=== PATIENT | female | born 1950 | race Caucasian/White ===

== ENCOUNTER 2019-11-27 12:17 | Outpatient (CLI) | payer MEDICARE, MEDICAID, SELFPAY ==
--- NOTE | 2019-11-27 12:25 | XR_ITS ---
WS: [id number] SCREENING DEXA SCAN [employer] CLINICAL INFORMATION: POSTMENOPAUSAL COMPARISON: November 27, 2019 FINDINGS: The L1-L4 bone mineral density measures 1.111 g/cm2. This corresponds to a T score score of -0.6 and Z score of 0.3. Left femoral neck bone mineral density measures 0.944 g/cm2. This corresponds to a T score of -0.5 an d Z score of 0.3. Right femoral neck bone mineral density measures 1.001 g/cm2. This corresponds to a T score -0.1of an d Z score of 0.7. Mean femoral neck bone mineral density measures 0.972 g/cm2. This corresponds to a T score of -0.3 an d Z score of 0.5. XR/XR DEXA axial skeleton* [id number] IMPRESSION: Normal bone mineralization. Patient's FRAX calculated 10 year probability for major osteoporotic fracture i s 9.2 % and osteoporotic hip fracture is 1.1%.
== END 2019-11-27 12:18 | disposition home or self-care (01) ==
LOC: RADWPI 12:23
PROVIDERS: Family Provider Family Medicine; PCP Family Medicine; Visit Provider Family Medicine
DX: Z78.0 Asymptomatic menopausal state (principal)
CPT/HCPCS: 77080

== ENCOUNTER 2021-02-28 08:21 | Outpatient (CLI) | payer MEDICARE, MEDICAID, SELFPAY ==
[2021-02-28] MEDS: iohexol 300 mg/mL 50 mL Btl PO (08:57)
[2021-02-28 09:49] LABS: Blood Urea Nitrogen 15 mg/dL (8-23); Glomerular Filtration Rate 71.3 mL/min (90-130)
[2021-02-28] MEDS: iohexol 350 mg/mL 100 mL Btl IV (09:55)
--- NOTE | 2021-02-28 10:00 | CT_ITS ---
WS: [id number] CT ABDOMEN AND PELVIS WITH CONTRAST HISTORY: K43.2 - Incisional hernia without obstruction or gangrene TECHNIQUE: Imaging performed of the abdomen and pelvis with IV contrast. Single phase imaging of the abdomen. Coronal and sagittal reformats are submitted. All CT scans at [facility] use at least one of these dose optimization techniques: automated exposure control; mA and/or kV adjustment per patient size (includes targeted exams where dose is matched to clinical indication); or iterativ e reconstruction. IV CONTRAST: Omnipaque 350; 95 mL IV. Oral contrast: Yes. DLP: 818.01 mGycm COMPARISON: 05/26/2019 Lower thorax: Lung bases are clear. Normal size heart. Mild pericardial thickening and increased fat around the heart. Postsurgical sutures are noted at the GE junction. Consistent with a history of john or hernia repair. There is mild thickening of the distal esophagus. Liver/biliary system: Liver is top normal size to slightly enlarged measuring 18 cm in length. Stable 8mm hypodensity in the RIGHT lobe of the liver. Portal veins normal. Prior cholecystectomy. Gallbladder: Status post cholecystectomy. Pancreas: Normal size pancreas and pancreatic duct. No adjacent inflammation. Spleen: Normal size spleen. No mass or infarct. Adrenal glands: Normal. Right kidney: There are a few scattered hypodensities in the renal cortex which are too small to malini acterize. No hydronephrosis. Left kidney: A few scattered hypodensities in the cortex. No increase in size of the bulging cortex a long the inferior kidney since 2019. Aorta: Mild atherosclerosis with no aneurysm. Lymphadenopathy: None. Free fluid: None. GI tract: No GI tract obstruction. There is a dilated loop of colon in the RIGHT pelvis which isn't p resent on prior examinations. No significant dilatation of colon or small bowel. Numerous diverticula in the descending colon. Abdominal wall: Supraumbilical umbilical RIGHT abdominal wall hernia. Hernia orifice measures 5.7 cm. This hernia contains nondilated small bowel loops. This hernia has progressed in size since the prio r examination. Improvement in the postoperative changes over the pelvis from a prior abdominal wall s urgery. Pelvis: No free fluid or adenopathy. Prior hysterectomy. Bones: Sclerotic focus in the proximal RIGHT femur. CT/CT abdomen pelvis w con* [id number] IMPRESSION: 1. Large supra umbilical RIGHT lateral abdominal wall hernia contains nondilat ed small bowel loops. Hernia has increase in size since 2019. 2. Improving postoperative changes along the anterior pelvic wall. 3. No evidence for GI tract obstruction. The overall pattern is similar to john or studies. 4. Mild hepatomegaly. 5. Prior cholecystectomy. 6. Prior hiatal hernia repair with mild esophageal wall thickening distally.
== END 2021-02-28 08:22 | disposition home or self-care (01) ==
PROVIDERS: PCP Family Medicine; Visit Provider Surgery
DX: K43.2 Incisional hernia without obstruction or gangrene (principal); K43.9 Ventral hernia without obstruction or gangrene; R16.0 Hepatomegaly, not elsewhere classified; Z90.49 Acquired absence of other specified parts of digestive tract
CPT/HCPCS: 74177; 82565; 84520; Q9967

== ENCOUNTER 2021-06-16 22:35 | Emergency (ER) | payer MEDICARE, MEDICAID, SELFPAY ==
[2021-06-16 22:39] VITALS: BP 135/82; PULSE 61; RESP 18; TEMP 36.4; O2SAT 99; BMI 38.7
--- NOTE | 2021-06-16 23:46 | ED_ITS ---
Documented by User: CHANTEL Reich 06/17/21 00:33 HPI - Abdominal Pain General: Chief Complaint: Abdominal Pain Stated Complaint: abdomen pain Time Seen by Provider: 06/16/21 23:35 History of Present Illness: HPI narrative: This pleasant lady arrived via ambulance with a complaint of abdominal pain earlier. Patient said that she was doing better but the ambulance personnel talked her to come in anyway. Patient says she is pain-free that she has had this multiple times with her hernias and that she would like to go on home now presently patient states her pain earlier today last about 5 hours patient denies any fever chills nausea or vomiting. MD elicited complaint: abdominal pain Pertinent past history: other (Ventral hernias with incarcerated hernias that resolved in their own. She has had multiple abdominal surgeries) Onset (ago): hour(s) Pain Consistency: now resolved Location: Diffuse Severity: mild Quality: fullness Radiation: none Exacerbating factors: nothing Associated Symptoms: Reports no associated symptoms; Denies chills, fever(s), nausea and vomiting Review of Systems Const: Denies: fever(s), chills or body aches Eyes: Denies: change in vision or blurry vision ENMT: Denies: throat pain or nasal congestion Card: Denies: chest pain or dyspnea on exertion Resp: Denies: dyspnea, productive cough or non-productive cough GI: Reports: abdominal pain (Abdominal discomfort that is resolved couple hours ago); Denies: nausea or vomiting Musc: Denies: extremity pain Skin/Breast: Denies: rash Neuro: Denies: headache(s) Psych: Denies: anxiety or depression Maicol/Lymph: Denies: easy bruising PFSH ED PFSH: Medical History Atrial flutter HTN (hypertension) Hypercholesterolemia Family History Other Cancer Diabetes Heart disease Social History Smoking and tobacco status: never smoked Alcohol intake: never Physical Exam Const: COMMON NORMALS: no acute distress, average body habitus and patient oriented x3 HENMT: COMMON NORMALS: normocephalic HEAD & SCALP: normal to inspection and normocephalic FACE & SINUS: normal facial exam Eye: COMMON NORMALS: conjunctivae normal GENERAL EYE: appearance normal, both eyes and all related structures CONJUNCTIVA: Yes conjunctivae normal Neck/C-Spine: COMMON NORMALS: no JVD Chest: COMMONS NORMALS: normal inspection of the chest Resp: COMMON NORMALS: normal respiratory effort and clear to auscultation bilaterally AUSCULTATION: clear to auscultation bilaterally Cardio: COMMON NORMALS: no JVD, regular rate and regular rhythm RATE: regular rate RHYTHM: regular rhythm GI: COMMON NORMALS: Soft to palpation (No tenderness noted on palpation) INSPECTION: Yes other (Obvious large ventral hernia and abdominal scarring) AUSCULTATION: Yes normoactive bowel sounds PALPATION: Yes Soft to palpation (No tenderness noted on palpation) PERCUSSION: normal to percussion Extremity: COMMON NORMALS: normal to inspection and full ROM Neuro: COMMON NORMALS: patient oriented x3 Course Vital Signs: Vital signs: Vital Signs Temperature 97.5 F L 06/16/21 22:39 Pulse Rate 72 06/16/21 23:54 Respiratory Rate 17 06/16/21 23:54 Blood Pressure 137/85 06/16/21 23:54 Pulse Oximetry 96 06/16/21 23:54 MDM - Abdominal Pain MDM Narrative: Medical decision making narrative: Patient states that she had abdominal pain earlier today she thought maybe is one of her hernias causing problems. She called an ambulance but by time EMS got there she was no longer pain but she said they talked her to come in. Patient declines any testing lab tests or radiology studies. Patient says she is doing fine and would like to just go back home. Patient given strict instruction to return here if worsening symptoms or return of pain. Patient states that she will and she will follow up with primary care provider. Discharge Plan Discharge Patient Disposition: Home Clinical Impression: Abdominal pain Qualifiers: Abdominal location: generalized Qualified Code(s): R10.84 - Generalized abdominal pain Condition: Stable Prescriptions: No Action warfarin 5 mg tablet 5 mg PO DAILY RF: 0 ezetimibe [Zetia] 10 mg tablet 10 mg PO DAILY RF: 0 gabapentin 300 mg capsule 300 mg PO DAILY RF: 0 albuterol sulfate [ProAir HFA] 90 mcg/actuation HFA aerosol inhaler 2 puff INHALATION Q6H PRNRF: 0 lorazepam 1 mg tablet 1 mg PO DAILY PRNRF: 0 multivitamin Tablet 1 tab PO DAILY RF: 0 calcium carbonate-vitamin D3 200 mg (500 mg) -400 unit capsule 1 cap PO DAILY RF: 0 hydrocodone-acetaminophen [[place]] 10-325 mg tablet 1 tab PO Q6H PRNRF: 0 fluticasone propionate [Flonase Allergy Relief] 50 mcg/actuation spray,suspension 1 spray INTRANASAL DAILY RF: 0 pantoprazole 40 mg tablet,delayed release (DR/EC) 40 mg PO DAILY RF: 0 cyclobenzaprine 5 mg tablet 5 mg PO TID PRNRF: 0 montelukast 10 mg tablet 10 mg PO DAILY RF: 0 levothyroxine 125 mcg capsule 125 mcg PO DAILY RF: 0 cholecalciferol (vitamin D3) 1,250 mcg (50,000 unit) capsule 50,000 unit PO .weekly RF: 0 sertraline 100 mg tablet 100 mg PO DAILY RF: 0 venlafaxine 150 mg capsule,extended release 24hr 150 mg PO DAILY RF: 0 aripiprazole [Abilify] 2 mg tablet 4 mg PO DAILY RF: 0 celecoxib [Celebrex] 100 mg capsule 100 mg PO BID RF: 0 warfarin 4 mg tablet 4 mg PO DAILY Qty: 60 RF: 3 diltiazem HCl 120 mg capsule,extended release 24 hr 120 mg PO DAILY Qty: 90 RF: 3 nitroglycerin [Nitrostat] 0.4 mg tablet, sublingual 0.4 mg SUBLINGUAL Q5M PRN (Reason: chest pain) Qty: 25 RF: 3 Discharge Orders: Discharge ED (Routine); Ordered 06/16/21 Ordered By: Ramiro Cruz Referrals: Lorena Jackson MD [Primary Care Provider] - Discharge Diet: Usual diet Discharge Activity: Increase activity as tolerated Patient Instructions: Abdominal Pain (ED) Activity Restrictions/Additional Instructions: Follow-up your primary care provider as needed or return here for further evaluation if you have worsening pain. Coding Level of Care Code ED Wafer Batter Mixer for [place] Fwd Exam Comprehensive Documented by User: Hilton Calhoun DO Toby 06/17/21 01:02 HPI - Abdominal Pain General: Chief Complaint: Abdominal Pain Stated Complaint: abdomen pain Time Seen by Provider: 06/16/21 23:35 PFSH ED PFSH: Medical History Atrial flutter HTN (hypertension) Hypercholesterolemia Family History Other Cancer Diabetes Heart disease Social History Smoking and tobacco status: never smoked Alcohol intake: never Course Vital Signs: Vital signs: Vital Signs Temperature 97.5 F L 06/16/21 22:39 Pulse Rate 72 06/16/21 23:54 Respiratory Rate 17 06/16/21 23:54 Blood Pressure 137/85 06/16/21 23:54 Pulse Oximetry 96 06/16/21 23:54 MDM - Abdominal Pain MDM Narrative: Medical decision making narrative: This patient was originally seen by CHANTEL Mata. I agree with his history, evaluation, and treatment. Discharge Plan Discharge Patient Disposition: Home Clinical Impression: Abdominal pain Qualifiers: Abdominal location: generalized Qualified Code(s): R10.84 - Generalized abdominal pain Condition: Stable Prescriptions: No Action warfarin 5 mg tablet 5 mg PO DAILY RF: 0 ezetimibe [Zetia] 10 mg tablet 10 mg PO DAILY RF: 0 gabapentin 300 mg capsule 300 mg PO DAILY RF: 0 albuterol sulfate [ProAir HFA] 90 mcg/actuation HFA aerosol inhaler 2 puff INHALATION Q6H PRNRF: 0 lorazepam 1 mg tablet 1 mg PO DAILY PRNRF: 0 multivitamin Tablet 1 tab PO DAILY RF: 0 calcium carbonate-vitamin D3 200 mg (500 mg) -400 unit capsule 1 cap PO DAILY RF: 0 hydrocodone-acetaminophen [[place]] 10-325 mg tablet 1 tab PO Q6H PRNRF: 0 fluticasone propionate [Flonase Allergy Relief] 50 mcg/actuation spray,suspension 1 spray INTRANASAL DAILY RF: 0 pantoprazole 40 mg tablet,delayed release (DR/EC) 40 mg PO DAILY RF: 0 cyclobenzaprine 5 mg tablet 5 mg PO TID PRNRF: 0 montelukast 10 mg tablet 10 mg PO DAILY RF: 0 levothyroxine 125 mcg capsule 125 mcg PO DAILY RF: 0 cholecalciferol (vitamin D3) 1,250 mcg (50,000 unit) capsule 50,000 unit PO .weekly RF: 0 sertraline 100 mg tablet 100 mg PO DAILY RF: 0 venlafaxine 150 mg capsule,extended release 24hr 150 mg PO DAILY RF: 0 aripiprazole [Abilify] 2 mg tablet 4 mg PO DAILY RF: 0 celecoxib [Celebrex] 100 mg capsule 100 mg PO BID RF: 0 warfarin 4 mg tablet 4 mg PO DAILY Qty: 60 RF: 3 diltiazem HCl 120 mg capsule,extended release 24 hr 120 mg PO DAILY Qty: 90 RF: 3 nitroglycerin [Nitrostat] 0.4 mg tablet, sublingual 0.4 mg SUBLINGUAL Q5M PRN (Reason: chest pain) Qty: 25 RF: 3 Discharge Orders: Discharge ED (Routine); Ordered 06/16/21 Ordered By: Ramiro Cruz Referrals: Lorena Jackson MD [Primary Care Provider] - Discharge Diet: Usual diet Discharge Activity: Increase activity as tolerated Patient Instructions: Abdominal Pain (ED) Activity Restrictions/Additional Instructions: Follow-up your primary care provider as needed or return here for further evaluation if you have worsening pain. Coding Level of Care Code ED Wafer Batter Mixer for Mira Fwd Exam Comprehensive
[2021-06-16 23:54] VITALS: BP 137/85; PULSE 72; RESP 17; O2SAT 96
== END 2021-06-16 23:56 | disposition home or self-care (01) ==
PROVIDERS: Emergency Provider Nurse Practitioner Family; PCP Family Medicine
DX: R10.84 Generalized abdominal pain (principal); Z79.891 Long term (current) use of opiate analgesic; I10 Essential (primary) hypertension; I48.92 Unspecified atrial flutter; Z79.01 Long term (current) use of anticoagulants
CPT/HCPCS: 99282

== ENCOUNTER 2021-11-10 08:28 | Inpatient (IN) | payer MEDICARE, MEDICAID, SELFPAY ==
[2021-11-10] VITALS (9 sets, daily range): BP systolic 94–140; BP diastolic 63–97; PULSE 71–87; RESP 16–18; TEMP 36.5–36.8; O2SAT 94–97; BMI 39.2
--- NOTE | 2021-11-10 08:48 | ED_ITS ---
HPI - GI Bleed General: Chief complaint: GI Bleed Stated complaint: rectal bleeding/clots Time Seen by Provider: 11/10/21 08:31 Source: patient Mode of arrival: ambulatory Limitations: no limitations History of Present Illness: 71-year-old female presents emergency room complaining of bright red blood per rectum with clots. She is on warfarin for A. fib flutter earlier this week had an INR greater than 4. She been taking a lot of NSAIDs advised her to stop the NSAIDs been she continues her usual dose of Coumadin and has not been rechecked yet. She has some mild abdominal discomfort. She reports having multiple hernias with repairs on several. She denies any fever sweats or chills no dysuria urgency or frequency. She is in the process of getting set up for routine colonoscopy for screening she had not been having any problems prior to this her last one she thinks was somewhere around 5 years ago best of her recollection it showed some diverticuli but she has not had any episodes of diverticulitis. She states she has had about 5 or 6 bloody BMs this morning with clots passed a couple of times. She does have several hemorrhoids that are irritated. complaint: gross hematochezia Onset (ago): hour(s) Pain Consistency: intermittent Severity: moderate Relieving factors: none Exacerbating factors: none Context: anticoagulant use Associated symptoms: Denies abdominal pain, chills, easy bruising, epistaxis, fever(s), headache(s), malaise, nausea, other bleeding, poor appetite, rash, syncope, vomiting or weakness Treatments Prior to Arrival: none Review of Systems Const: Denies: fever(s), chills or malaise ENMT: Denies: epistaxis Card: Denies: syncope Resp: Denies: dyspnea, productive cough or non-productive cough GI: Denies: abdominal pain, nausea or vomiting : Denies: flank pain, difficulty voiding, dysuria, urinary frequency or urinary urgency Skin/Breast: Denies: rash Neuro: Denies: headache(s) Maicol/Lymph: Denies: easy bruising [facility] ED PFSH: Medical History Atrial flutter Chronic back pain COPD (chronic obstructive pulmonary disease) 2014 Depression with anxiety Diabetes mellitus Fibromyalgia GERD (gastroesophageal reflux disease) History of breast cancer History of TIA (transient ischemic attack) HTN (hypertension) Hypercholesterolemia Hypothyroidism IBS (irritable bowel syndrome) Surgical History History of bilateral mastectomy 1988 History of colonoscopy History of sleeve gastrectomy History of tonsillectomy S/P cataract extraction S/P cholecystectomy S/P hernia repair S/P hysterectomy S/P knee replacement Bilateral S/P mastectomy S/P tonsillectomy S/P TRAM (transverse rectus abdominis muscle) flap breast reconstruction 1989 S/P tubal ligation Family History Other Cancer Diabetes Heart disease Social History Smoking and tobacco status: never smoked Alcohol intake: never Physical Exam Const: GENERAL APPEARANCE: cooperative and comfortable ORIENTATION/CONSCIOUSNESS: Yes awake, Yes oriented to person, Yes oriented to place and Yes oriented to time HENMT: COMMON NORMALS: normocephalic, atraumatic and hearing grossly normal bilaterally HEAD & SCALP: normocephalic and atraumatic Neck/C-Spine: COMMON NORMALS: no JVD Resp: COMMON NORMALS: normal respiratory effort, No retractions, No use of accessory muscles and clear to auscultation bilaterally AUSCULTATION: clear to auscultation bilaterally Cardio: COMMON NORMALS: no JVD, regular rate, regular rhythm and No murmurs present (Cardio) RATE: regular rate RHYTHM: regular rhythm GI: COMMON NORMALS: Soft to palpation and No hepatosplenomegaly present AUSCULTATION: Yes normoactive bowel sounds PALPATION: Yes Soft to palpation, No Tenderness to palpation present (GI), No Guarding due to palpation present (GI) and Yes No hepatosplenomegaly present Extremity: COMMON NORMALS: normal to inspection, capillary refill normal, no clubbing, cyanosis or edema, no calf tenderness and no pedal edema Neuro: SENSORIUM/ORIENTATION: Yes oriented to person, Yes oriented to place and Yes oriented to time Skin: COMMON NORMALS: no rashes or lesions noted GENERAL SKIN EXAM: no rashes or lesions noted Course Vital Signs: Vital signs: Vital Signs Temperature 98.5 F 11/13/21 16:00 Pulse Rate 67 11/13/21 16:00 Respiratory Rate 12 11/13/21 16:00 Blood Pressure 117/69 11/13/21 16:00 Pulse Oximetry 94 11/13/21 16:00 MDM - GI Bleed Medical Decision Making Early and recurrent hours elevated has decreased some CT shows what looks like active bleeding from the diverticuli. We will continue her antibiotics. Continue to monitor hemoglobin and PT/INR. Discussed with hospitalist orders written Medical Records I reviewed the patient's medical records. Lab Data I reviewed the patient's lab results. : 11/13/21 16:26 11/13/21 02:25 Radiology Impressions Abdomen/Pelvis CT 11/10/21 08:57 IMPRESSION: 1. Acute diverticulitis involving the descending colon. Some contrast material layering within the lumen suggests active bleeding. Unable to further discriminate between arterial and venous bleeding on this single phase exam. 2. Moderate-sized ventral abdominal hernia to the right of midline containing nonobstructed transverse colon. COMMENTS: Consistent with the [place]'s Incidental Findings Committee white paper (J Am Mathew Radiol 2018): Any incidental renal lesion less than 1 cm or classified as too small to characterize, or any incidental cystic renal lesion characterized as simple-appearing, is likely benign. No follow-up imaging is recommended for these lesions per consensus recommendations based on imaging criteria. ADDENDUM: 11/10/21 1107 THIS REPORT CONTAINS FINDINGS THAT MAY BE CRITICAL TO PATIENT CARE. The findings were verbally communicated via telephone conference with CURLY CHUNG at 11:06 AM CDT on 11/10/2021. The findings were acknowledged and understood. Chest X-Ray 11/10/21 08:57 IMPRESSION: 1. No acute cardiopulmonary finding. No change. Laboratory Results WBC 4.6 10^3/uL (4.0-10.0) 11/10/21 09:20 RBC 4.48 10^6/uL (4.1-5.3) 11/10/21 09:20 Hgb 12.4 g/dL (11.5-15.3) 11/10/21 09:20 Hct 37.7 % (37.0-47.0) 11/10/21 09:20 MCV 84.2 fl (81-99) 11/10/21 09:20 MCH 27.7 pg (28.0-34.0) L 11/10/21 09:20 MCHC 32.9 g/dL (30.0-36.0) 11/10/21 09:20 RDW 13.6 % (12.1-15.1) 11/10/21 09:20 Plt Count 273 10^3/cmm (130-400) 11/10/21 09:20 MPV 10.5 fL (7.4-10.4) H 11/10/21 09:20 Neut % (Auto) 76.0 % 11/10/21 09:20 Lymph % (Auto) 14.6 % 11/10/21 09:20 [place] % (Auto) 6.5 % 11/10/21 09:20 Eos % (Auto) 2.0 % 11/10/21 09:20 Baso % (Auto) 0.7 % 11/10/21 09:20 Neut # (Auto) 3.49 10^3/uL (1.8-7.7) 11/10/21 09:20 Lymph # (Auto) 0.7 10^3/uL (0.8-4.8) L 11/10/21 09:20 [place] # (Auto) 0.3 10^3/uL (0.2-0.9) 11/10/21 09:20 Eos # (Auto) 0.1 10^3/uL (0.0-0.8) 11/10/21 09:20 Baso # (Auto) 0.0 10^3/uL (0.0-0.1) 11/10/21 09:20 Nucleated RBC % (auto) 0 % 11/10/21 09:20 Nucleated RBCs # 0.0 /100WBC 11/10/21 09:20 PT 30.70 SECONDS (12.1-14.9) H 11/10/21 09:20 INR 2.89 (0.8-1.2) H 11/10/21 09:20 Sodium 137 mmol/L (136-145) 11/10/21 09:20 Potassium 4.1 mmol/L (3.5-5.1) 11/10/21 09:20 Chloride 101 mmol/L (98-107) 11/10/21 09:20 Carbon Dioxide 25 mmol/L (22-29) 11/10/21 09:20 Anion Gap 15.1 (5-19) 11/10/21 09:20 BUN 15 mg/dL (8-23) 11/10/21 09:20 Creatinine 0.8 mg/dL (0.5-0.9) 11/10/21 09:20 GFR Calculation 71.1 mL/min (90-130) L 11/10/21 09:20 Glucose 133 mg/dL (65-115) H 11/10/21 09:20 Calculated Osmolality 287 mOsm/kg (285-295) 11/10/21 09:20 Calcium 8.1 mg/dL (8.5-10.5) L 11/10/21 09:20 Total Bilirubin 0.3 mg/dL (0.15-1.2) 11/10/21 09:20 AST 22 U/L (0-32) 11/10/21 09:20 ALT 16 U/L (0-33) 11/10/21 09:20 Alkaline Phosphatase 70 IU/L (35-105) 11/10/21 09:20 Total Protein 6.6 g/dL (6.6-8.7) 11/10/21 09:20 Albumin 3.7 g/dL (3.5-5.2) 11/10/21 09:20 Globulin 2.9 g/dL (1.3-4.6) 11/10/21 09:20 TSH 1.56 uIU/mL (0.27-4.20) 11/10/21 09:20 Discharge Plan Discharge Patient Disposition: Admitted As Inpatient Admit Provider: Talha Jackson Clinical Impression: Acute diverticulitis, Hematochezia, Diabetes mellitus, COPD (chronic obstructive pulmonary disease), HTN (hypertension) Condition: Stable Coding Level of Care Code ED Medical Office Technician for Chg Fwd Exam Comprehensive
--- NOTE | 2021-11-10 08:57 | XR_ITS ---
WS: [id number] Exam: XR chest 1V portable [id number] Date/Time of Exam: 11/10/2021 9:00 AM Reason For Exam: dyspnea/cough Comparison 11/28/2018. The lungs are clear and fully expanded. Normal cardiomediastinal silhouette. No pleural effusions. Wilson rgical clips along the right and left chest. XR/XR chest 1V portable [id number] IMPRESSION: 1. No acute cardiopulmonary finding. No change.
--- NOTE | 2021-11-10 08:57 | CTR_ITS ---
PROCEDURE INFORMATION: Exam: CT Abdomen And Pelvis With Contrast Exam date and time: 11/10/2021 10:13 AM Age: 71 years old Clinical indication: Abdominal pain; Prior surgery; Surgery type: Gb, appy hernia; Additional info: Abd pain rectal bleeding TECHNIQUE: Imaging protocol: Computed tomography of the abdomen and pelvis with contrast. Radiation optimization: All CT scans at this facility use at least one of these dose optimization techniques: automated exposure control; mA and/or kV adjustment per patient size (includes targeted exams where dose is matched to clinical indication); or iterative reconstruction. Contrast material: OMNI 300; Contrast volume: 95 ml; Contrast route: INTRAVENOUS (IV); COMPARISON: CT abdomen pelvis w con* [id number] 02/28/2021 9:53 AM RADIATION DOSE METRICS: Total DLP (mGy-cm): 1715.94 FINDINGS: Diaphragm: Small hiatal hernia. Liver: Subcentimeter low-density lesions in the liver are too small to characterize, though statistically benign. Gallbladder and bile ducts: Cholecystectomy. Pancreas: Normal. No ductal dilation. Spleen: Normal. No splenomegaly. Adrenal glands: Normal. No mass. Kidneys and ureters: Subcentimeter low-density lesions in the kidneys are too small to characterize, though statistically benign. No hydronephrosis. Stomach and bowel: Postsurgical changes of sleeve gastrectomy. No bowel obstruction. Colonic diverticulosis with inflammatory changes about a diverticulum in the descending colon. There is also some high-density contrast material layering within the lumen of the colon at this location, suggesting active bleeding. Unable to further discriminate whether this is arterial or venous. No evidence of perforation or abscess. Appendix: Appendectomy. Intraperitoneal space: Unremarkable. No free air. No significant fluid collection. Arteries: See Stomach and bowel finding. Lymph nodes: Unremarkable. No enlarged lymph nodes. Urinary bladder: Unremarkable as visualized. Reproductive: Hysterectomy. Bones/joints: Unremarkable. No acute fracture. Soft tissues: There is a moderate-sized ventral abdominal hernia in the mid abdomen just right of midline. The neck of the hernia sac measures up to 8.2 cm. The hernia sac contains nonobstructed colon. Surgical changes are seen in the ventral abdominal wall. CT/CT abdomen pelvis w con* [id number] IMPRESSION: 1. Acute diverticulitis involving the descending colon. Some contrast material layering within the lumen suggests active bleeding. Unable to further discriminate between arterial and venous bleeding on this single phase exam. 2. Moderate-sized ventral abdominal hernia to the right of midline containing nonobstructed transverse colon. COMMENTS: Consistent with the [employer]'s Incidental Findings Committee white paper (J Am Mathew Radiol 2018): Any incidental renal lesion less than 1 cm or classified as too small to characterize, or any incidental cystic renal lesion characterized as simple-appearing, is likely benign. No follow-up imaging is recommended for these lesions per consensus recommendations based on imaging criteria.
[2021-11-10 09:28] LABS: Basophils % 0.7 %; Eosinophils # 0.1 10^3/uL (0.0-0.8); Hematocrit 37.7 % (37.0-47.0); Hemoglobin 12.4 g/dL (11.5-15.3); Lymphocytes # 0.7 10^3/uL (0.8-4.8); Lymphocytes % 14.6 %; Mean Corpuscular HGB Conc 32.9 g/dL (30.0-36.0); Mean Corpuscular Hemoglobin 27.7 pg (28.0-34.0); Mean Corpuscular Volume 84.2 fl (81-99); Mean Platelet Volume 10.5 fL (7.4-10.4); Monocytes # 0.3 10^3/uL (0.2-0.9); Monocytes % 6.5 %; Neutrophils # 3.49 10^3/uL (1.8-7.7); Nucleated Red Blood Cells % 0 %; Platelet Count 273 10^3/cmm (130-400); Red Blood Count 4.48 10^6/uL (4.1-5.3); Red Cell Distribution Width 13.6 % (12.1-15.1); White Blood Count 4.6 10^3/uL (4.0-10.0)
[2021-11-10 09:51] LABS: Alanine Aminotransferase 16 U/L (0-33); Albumin Level 3.7 g/dL (3.5-5.2); Alkaline Phosphatase 70 IU/L (35-105); Anion Gap 15.1 (5-19); Aspartate Amino Transferase 22 U/L (0-32); Blood Urea Nitrogen 15 mg/dL (8-23); Calcium 8.1 mg/dL (8.5-10.5); Carbon Dioxide 25 mmol/L (22-29); Chloride 101 mmol/L (98-107); Globulin 2.9 g/dL (1.3-4.6); Glomerular Filtration Rate 71.1 mL/min (90-130); Glucose 133 mg/dL (65-115); Osmolality Calculated 287 mOsm/kg (285-295); Potassium 4.1 mmol/L (3.5-5.1); Sodium 137 mmol/L (136-145); Total Bilirubin 0.3 mg/dL (0.15-1.2); Total Protein 6.6 g/dL (6.6-8.7)
[2021-11-10 10:03] LABS: INR 2.89 (0.8-1.2)
[2021-11-10] MEDS: iohexol 300 mg/mL 100 mL Btl IV (10:13)
--- NOTE | 2021-11-10 12:10 | P.HP_ITS ---
Providers/Chief Complaint Admitting Physician: Talha Jackson MD Primary Care Provider: Lorena Jackson MD Chief Complaint: rectal bleeding/clots History of Present Illness Maida Shelton is a 71 year old female who presents to the emergency department with history of seen blood in her stool since last night. She has not had any specific abdominal pain, but now notes her abdomen is a little tender. She had a 6 bright red bloody stools with clots. She has only had 1 in the emergency department, which was less quantity. She denies any fever, chills, nausea, or vomiting. She denies any past history of bleeding. She reports she is due for screening colonoscopy. She was going to see Dr. Garcia for this in the near future. She is on Coumadin chronically for atrial flutter. In the emergency department she was diagnosed with diverticulitis, with bleeding. She was given a dose of Cipro and Flagyl. Review of Systems General: Reports: 10 or more systems reviewed and unremarkable except in HPI and below Const: Denies: fever(s) or chills Eyes: Denies: change in vision ENMT: Denies: throat pain Card: Denies: chest pain Resp: Reports: dyspnea GI: Reports: abdominal pain and hematochezia; Denies: nausea or vomiting : Denies: flank pain Musc: Reports: back pain Skin/Breast: Denies: rash Neuro: Denies: headache(s) Psych: Reports: anxiety and depression Endo: Denies: polyuria Maicol/Lymph: Denies: easy bruising All/Imm: Denies: urticaria Medications/Allergies Home Medications Medication Instructions Recorded Confirmed Last Taken Type albuterol sulfate 90 mcg/actuation 2 puff INHALATION Q6H PRN 11/16/19 12/16/20 Unknown History aerosol inhaler (ProAir HFA) cholecalciferol (vitamin D3) 1,250 50,000 unit PO .weekly cap 11/16/19 12/16/20 Unknown History mcg (50,000 unit) capsule cyclobenzaprine 5 mg tablet 5 mg PO TID PRN 11/16/19 12/16/20 Unknown History ezetimibe 10 mg tablet (Zetia) 10 mg PO DAILY 11/16/19 12/16/20 Unknown History fluticasone propionate 50 1 spray INTRANASAL DAILY 11/16/19 12/16/20 Unknown History mcg/actuation nasal spray,suspension (Flonase Allergy Relief) gabapentin 300 mg capsule 300 mg PO DAILY 11/16/19 12/16/20 Unknown History levothyroxine 125 mcg capsule 125 mcg PO DAILY 11/16/19 12/16/20 Unknown History lorazepam 1 mg tablet 1 mg PO DAILY PRN 11/16/19 12/16/20 Unknown History montelukast 10 mg tablet 10 mg PO DAILY 11/16/19 12/16/20 Unknown History multivitamin 1 tab PO DAILY 11/16/19 12/16/20 Unknown History sertraline 100 mg tablet 100 mg PO DAILY 11/16/19 12/16/20 Unknown History warfarin 5 mg tablet 5 mg PO DAILY 11/16/19 12/16/20 Unknown History aripiprazole 2 mg tablet (Abilify) 4 mg PO DAILY tab 11/11/20 12/16/20 Unknown History diltiazem HCl 120 mg capsule,24 120 mg PO DAILY #90 cap 12/08/20 12/16/20 Unknown Rx hr,extended release nitroglycerin 0.4 mg sublingual 0.4 mg SUBLINGUAL Q5M PRN #25 tab 03/28/21 Unknown Rx tablet (Nitrostat) calcium carb,cit 315 mg-vitamin D3 1 tab PO DAILY 11/10/21 11/10/21 11/09/21 History 250 unit-phytosterols 200 mg tablet duloxetine 30 mg capsule,delayed 30 mg PO DAILY 11/10/21 11/10/21 11/09/21 History release famotidine 20 mg tablet 20 mg PO DAILY 11/10/21 11/10/21 11/09/21 History hydrocodone 10 mg-acetaminophen 1 tab PO Q6H PRN 11/10/21 11/10/21 Unknown History 325 mg tablet omega-3 fatty acids-fish oil 684 1 cap PO DAILY 11/10/21 11/10/21 11/09/21 History mg-1,200 mg capsule,delayed release pseudoephedrine HCl 30 mg tablet 30 mg PO Q6H PRN 11/10/21 11/10/21 Unknown History (Sudafed) Allergies Allergy/AdvReac Type Severity Reaction Status Date / Time Sulfa (Sulfonamide Allergy Unknown Unknown Verified 11/10/21 11:55 Antibiotics) PFSH Acute PFSH: Medical History (Updated 11/10/21 @ 12:18 by Talha Jackson MD) Atrial flutter Chronic back pain COPD (chronic obstructive pulmonary disease) 2015 Depression with anxiety Diabetes mellitus Fibromyalgia GERD (gastroesophageal reflux disease) History of breast cancer History of TIA (transient ischemic attack) HTN (hypertension) Hypercholesterolemia Hypothyroidism IBS (irritable bowel syndrome) Surgical History (Updated 11/10/21 @ 12:13 by Talha Jackson MD) History of bilateral mastectomy 1988 History of colonoscopy History of sleeve gastrectomy History of tonsillectomy S/P cataract extraction S/P cholecystectomy S/P hernia repair S/P hysterectomy S/P knee replacement Bilateral S/P mastectomy S/P tonsillectomy S/P TRAM (transverse rectus abdominis muscle) flap breast reconstruction 1989 S/P tubal ligation Family History Other Cancer Diabetes Heart disease Social History Smoking and tobacco status: never smoked Alcohol intake: never Vitals/I&O/Wt Last Vital Signs Pulse 80 11/10/21 09:10 Resp 16 11/10/21 11:24 BP 126/97 11/10/21 11:24 Pulse Ox 97 11/10/21 11:24 Weight last 48 hrs Weight 110.223 kg Physical Exam Narrative: General exam is a white female, no apparent distress, conversant and pleasant HEENT: Pupils equally round. Oropharynx clear. Neck is supple no lymphadenopathy thyromegaly Cardiovascular regular rate and rhythm without murmur, no S3 or S4 Lungs clear no wheezing or crackles Abdomen is soft with positive bowel sounds. No obvious organomegaly. Ventral hernia noted, reducible. Generalized tenderness, slight, worse on the left exam is deferred Extremities no cyanosis clubbing or edema, cap refill brisk Skin no rash Neuro no obvious focal deficits Data : 11/10/21 09:20 11/10/21 09:20 Other Labs: CT demonstrates descending diverticulitis, with concern of active bleeding as well as a ventral abdominal hernia INR is 2.89 LFTs are normal Calcium 8.1 Albumin 3.7 Chest x-ray no infiltrate A&P Assessment and plan (1) Acute diverticulitis: Cipro Flagyl will be continued Blood cultures were not drawn prior to antibiotic administration. She does not appear septic, and at this point blood cultures are low yield. Consider getting this should she become febrile. This is associated with bleeding Discussed with her screening colonoscopy should be delayed until 6 weeks after episode of possible Hydration Repeat hemoglobin in 4 hours, sooner should she have recurrent bleeding. Status: Acute (2) Hematochezia: Secondary to diverticulitis, in this patient on Coumadin Status: Acute (3) Atrial flutter: Continue medications that are used for rate control Stop Coumadin secondary to bleeding Repeat INR tomorrow. As bleeding has slowed significantly and hemoglobin is acceptable will not reverse Status: Acute Qualifiers: Atrial flutter type: atypical Qualified Code(s): I48.4 - Atypical atrial flutter (4) Diabetes mellitus: When diet is initiated it will need to be consistent carb. Currently she is di et controlled, and no insulin is needed. No reason for Accu-Cheks currently. Status: Acute (5) COPD (chronic obstructive pulmonary disease): Albuterol as needed. No evidence of exacerbation. Status: Acute Plan Multiple other medical problems as outlined in past medical history Full code SCDs for DVT prophylaxis. Anticoagulation contraindicated secondary to bleeding Attestations Medical Necessity Statement*: Will need greater than 2 midnight stay for evaluation and treatment of diverticulitis with hemorrhage Coding Level of Care Code Acute [place] for Mira Dwyer Diagnoses Acute diverticulitis K57.92 Hematochezia K92.1 Atrial flutter I48.4 Atrial flutter type: atypical Diabetes mellitus E11.9 COPD (chronic obstructive pulmonary disease) J44.9
[2021-11-10] MEDS: ciprofloxacin 400 MG/200 ML PREMIX 200 MG IV ×2 (12:30→23:28)
[2021-11-10 12:42] LABS: Thyroid Stimulating Hormone 1.56 uIU/mL (0.27-4.20)
[2021-11-10] MEDS: metroNIDAZOLE IV 500 MG/100 ML PREMIX 100 MG IV ×2 (14:10→17:16)
[2021-11-10] MEDS: sodium chloride 0.9% 1,000 ML 100 ML IV (14:10)
[2021-11-10 14:53] LABS: Hematocrit 33.4 % (37.0-47.0); Hemoglobin 10.9 g/dL (11.5-15.3)
[2021-11-10] MEDS: HYDROcodone-acetaminophen 10-325 mg Tablet 1 TAB PO (18:38)
[2021-11-10 19:21] LABS: Hematocrit 29.7 % (37.0-47.0)
[2021-11-10] MEDS: duloxetine 30 mg Capsule PO (23:24)
[2021-11-10] MEDS: famotidine 20 mg Tablet PO (23:24)
[2021-11-10] MEDS: ezetimibe 10 mg Tablet PO (23:24)
[2021-11-10] MEDS: ARIPiprazole 2 mg Tablet 4 MG PO (23:24)
[2021-11-10] MEDS: dilTIAZem ER (24HR) 120 mg Capsule PO (23:25)
[2021-11-10] MEDS: gabapentin 300 mg Capsule PO (23:26)
[2021-11-10] MEDS: montelukast sodium 10 mg Tablet PO (23:26)
[2021-11-10] MEDS: sertraline 100 mg Tablet PO (23:26)
[2021-11-11] VITALS (9 sets, daily range): BP systolic 100–112; BP diastolic 58–70; PULSE 65–74; RESP 12–18; TEMP 36.6–36.7; O2SAT 92–96
[2021-11-11] MEDS: metroNIDAZOLE IV 500 MG/100 ML PREMIX 100 MG IV ×4 (00:13→22:12)
[2021-11-11] MEDS: sodium chloride 0.9% 1,000 ML 100 ML IV ×2 (02:54→17:00)
[2021-11-11 06:06] LABS: Basophils % 0.7 %; Eosinophils # 0.1 10^3/uL (0.0-0.8); Eosinophils % 1.9 %; Hematocrit 27.5 % (37.0-47.0); Hemoglobin 8.7 g/dL (11.5-15.3); Lymphocytes # 0.7 10^3/uL (0.8-4.8); Lymphocytes % 16.2 %; Mean Corpuscular HGB Conc 31.6 g/dL (30.0-36.0); Mean Corpuscular Hemoglobin 27.7 pg (28.0-34.0); Mean Corpuscular Volume 87.6 fl (81-99); Mean Platelet Volume 10.7 fL (7.4-10.4); Monocytes # 0.3 10^3/uL (0.2-0.9); Monocytes % 6.8 %; Neutrophils # 3.15 10^3/uL (1.8-7.7); Neutrophils % 73.7 %; Nucleated Red Blood Cells % 0 %; Platelet Count 213 10^3/cmm (130-400); Red Blood Count 3.14 10^6/uL (4.1-5.3); White Blood Count 4.3 10^3/uL (4.0-10.0)
[2021-11-11 06:25] LABS: Alanine Aminotransferase 12 U/L (0-33); Albumin Level 3.2 g/dL (3.5-5.2); Alkaline Phosphatase 50 IU/L (35-105); Anion Gap 10.9 (5-19); Aspartate Amino Transferase 15 U/L (0-32); Blood Urea Nitrogen 13 mg/dL (8-23); Calcium 7.3 mg/dL (8.5-10.5); Carbon Dioxide 26 mmol/L (22-29); Chloride 104 mmol/L (98-107); Globulin 1.6 g/dL (1.3-4.6); Glucose 109 mg/dL (65-115); Osmolality Calculated 285 mOsm/kg (285-295); Potassium 3.9 mmol/L (3.5-5.1); Sodium 137 mmol/L (136-145); Total Bilirubin 0.2 mg/dL (0.15-1.2); Total Protein 4.8 g/dL (6.6-8.7)
[2021-11-11 07:56] LABS: INR 2.48 (0.8-1.2)
[2021-11-11] MEDS: levothyroxine 125 mcg Tablet PO (08:33)
--- NOTE | 2021-11-11 11:22 | PM.PN ---
Subjective Subjective: The patient reports feeling better. No bowel movement since yesterday. No rectal blood so far. No dizziness or lightheadedness. Reports being hungry. No abdominal pain. No fever or chills. No chest pain, shortness of breath, cough, palpitations. Medications: Medication Review Details: Generic Name Dose Route Start Last Admin Trade Name Freq PRN Reason Stop Dose Admin Hydrocodone Bitart /Acetaminophen 1 tab 11/10/21 12:43 11/10/21 18:38 Hydrocodone-Acet aminophen 10-325 M g Tablet PO 1 tab Q6H PRN Administration MODERATE Pain Aripiprazole 4 mg 11/10/21 23:00 11/10/21 23:24 Aripiprazole 2 M g Tablet PO 4 mg BEDTIME GENESIS Administration Diltiazem HCl 120 mg 11/10/21 23:00 11/10/21 23:25 Diltiazem Er (24 hr) 120 Mg Capsule PO 120 mg BEDTIME GENESIS Administration Duloxetine HCl 30 mg 11/10/21 23:00 11/10/21 23:24 Duloxetine 30 Mg Capsule PO 30 mg BEDTIME GENESIS Administration Ezetimibe 10 mg 11/10/21 23:00 11/10/21 23:24 Ezetimibe 10 Mg Tablet PO 10 mg DAILY GENESIS Administration Famotidine 20 mg 11/10/21 23:00 11/10/21 23:24 Famotidine 20 Mg Tablet PO 20 mg BEDTIME GENESIS Administration Fluticasone Propio anuja 1 spray 11/11/21 09:00 11/11/21 08:33 Fluticasone Nasa l [place] 16gm Btl INTRANASAL Not Given DAILY GENESIS Gabapentin 300 mg 11/10/21 23:15 11/10/21 23:26 Gabapentin 300 M g Capsule PO 300 mg BEDTIME GENESIS Administration Sodium Chloride 1,000 mls @ 70 ml s/hr 11/10/21 12:43 11/11/21 02:54 Sodium Chloride 0.9% IV 100 mls/hr .[id number] GENESIS Administration Ciprofloxacin/Dext sabina 400 mg in 200 mls @ 200 mls/hr 11/10/21 23:55 11/11/21 00:28 Cipro IV Infused Q12H GENESIS Infusion Protocol Metronidazole 500 mg in 100 mls @ 100 mls/hr 11/10/21 18:00 04/23/22 06:25 Flagyl Iv IV Infused Q6H GENESIS Infusion Protocol Levothyroxine Sodi um 125 mcg 11/11/21 09:00 11/11/21 08:33 Levothyroxine 12 5 Mcg Tablet PO 125 mcg DAILY GENEISS Administration Montelukast Sodium 10 mg 11/10/21 23:15 11/10/21 23:26 Montelukast Sodi um 10 Mg Tablet PO 10 mg BEDTIME GENESIS Administration Sertraline HCl 100 mg 11/10/21 23:15 11/10/21 23:26 Sertraline 100 M g Tablet PO 100 mg BEDTIME GENESIS Administration Vitals/I&O/Wt Last Vital Signs Temp 97.9 F 11/11/21 04:00 Pulse 70 11/11/21 07:53 Resp 16 11/11/21 07:53 BP 100/58 11/11/21 07:45 Pulse Ox 94 11/11/21 07:53 11/10/21 11/11/21 11/11/21 22:59 06:59 14:59 Intake Total 200 / 400 1520 / 1920 Output Total 650 / 650 640 / 1290 Balance -450 / -250 880 / 630 Weight last 48 hrs Weight 110.223 kg Weight 110.223 kg Physical Exam Narrative: The patient is awake alert and oriented. No acute distress. Mood and affect are appropriate. Responses are adequate. Skin is warm and dry. Moist mucous membranes. Eyes PERRL, extraocular muscles intact. Neck supple. No JVD Lungs are clear bilaterally. Heart S1, S2, regular Abdomen is soft, nontender, bowel sounds are present Extremities no edema cyanosis or calf tenderness bilaterally Neuro examination is nonfocal Data : 11/11/21 05:00 11/11/21 05:00 A&P Assessment and plan (1) Acute diverticulitis: Gm Moore will be continued Blood cultures were not drawn prior to antibiotic administration. She does not appear septic, and at this point blood cultures are low yield. Consider getting this should she become febrile. This is associated with bleeding Discussed with her screening colonoscopy should be delayed until 6 weeks after episode of possible Hydration Repeat hemoglobin in 4 hours, sooner should she have recurrent bleeding. Status: Acute (2) Hematochezia: Secondary to diverticulitis, in this patient on Coumadin Status: Acute (3) Atrial flutter: Continue medications that are used for rate control Stop Coumadin secondary to bleeding Repeat INR tomorrow. As bleeding has slowed significantly and hemoglobin is acceptable will not reverse Status: Acute Qualifiers: Atrial flutter type: atypical Qualified Code(s): I48.4 - Atypical atrial flutter (4) Diabetes mellitus: When diet is initiated it will need to be consistent carb. Currently she is diet controlled, and no insulin is needed. No reason for Accu-Cheks currently. Status: Acute (5) COPD (chronic obstructive pulmonary disease): Albuterol as needed. No evidence of exacerbation. Status: Acute Plan [place] Rectal bleeding, probably diverticular. Continue monitoring H&H. We will transfuse if becomes clinically significant. Anemia. So far stable. Continue close monitoring. Acute diverticulitis. Continue current Cipro and metronidazole. Continue IV fluids. Advancing diet to clear liquid diet today. No pain. History of atrial flutter. Coumadin is on hold. Rate controlled. Continue monitoring INR. No reversal so far. COPD. Stable. No evidence of acute exacerbation. Full code SCDs for DVT prophylaxis. Anticoagulation contraindicated secondary to bleeding The plan of care was discussed with the patient. She verbalized understanding and agreement Attestations Medical Necessity Statement*: Requires close monitoring of the infection and anemia. Coding Level of Care Code Acute [employer] Operator for saúl Dwyer Diagnoses Acute diverticulitis K57.92 Hematochezia K92.1 Atrial flutter I48.4 Atrial flutter type: atypical Diabetes mellitus E11.9 COPD (chronic obstructive pulmonary disease) J44.9
[2021-11-11] MEDS: ciprofloxacin 400 MG/200 ML PREMIX 200 MG IV ×2 (13:22→23:04)
[2021-11-11 14:15] LABS: Hematocrit 26.4 % (37.0-47.0); Hemoglobin 8.8 g/dL (11.5-15.3)
[2021-11-11] MEDS: ARIPiprazole 2 mg Tablet 4 MG PO (22:10)
[2021-11-11] MEDS: dilTIAZem ER (24HR) 120 mg Capsule PO (22:11)
[2021-11-11] MEDS: duloxetine 30 mg Capsule PO (22:11)
[2021-11-11] MEDS: gabapentin 300 mg Capsule PO (22:11)
[2021-11-11] MEDS: ezetimibe 10 mg Tablet PO (22:11)
[2021-11-11] MEDS: sertraline 100 mg Tablet PO (22:11)
[2021-11-11] MEDS: famotidine 20 mg Tablet PO (22:12)
[2021-11-11] MEDS: montelukast sodium 10 mg Tablet PO (22:12)
[2021-11-11] MEDS: HYDROcodone-acetaminophen 10-325 mg Tablet 1 TAB PO (23:04)
[2021-11-12] MEDS: metroNIDAZOLE IV 500 MG/100 ML PREMIX 100 MG IV ×4 (03:33→20:53)
[2021-11-12 04:00] VITALS: BP 108/58; PULSE 67; RESP 17; TEMP 36.6; O2SAT 95
[2021-11-12 04:56] LABS: Basophils % 1.2 %; Eosinophils # 0.2 10^3/uL (0.0-0.8); Eosinophils % 5.3 %; Hemoglobin 8.1 g/dL (11.5-15.3); Lymphocytes # 0.7 10^3/uL (0.8-4.8); Lymphocytes % 21.1 %; Mean Corpuscular HGB Conc 32.4 g/dL (30.0-36.0); Mean Corpuscular Volume 86.5 fl (81-99); Mean Platelet Volume 10.3 fL (7.4-10.4); Monocytes # 0.3 10^3/uL (0.2-0.9); Monocytes % 9.7 %; Neutrophils % 61.5 %; Nucleated Red Blood Cells % 0 %; Platelet Count 189 10^3/cmm (130-400); Red Blood Count 2.89 10^6/uL (4.1-5.3); White Blood Count 3.4 10^3/uL (4.0-10.0)
[2021-11-12 05:21] LABS: Albumin Level 3.2 g/dL (3.5-5.2); Anion Gap 12.8 (5-19); Blood Urea Nitrogen 7 mg/dL (8-23); Calcium 7.3 mg/dL (8.5-10.5); Carbon Dioxide 23 mmol/L (22-29); Chloride 105 mmol/L (98-107); Glomerular Filtration Rate 99.1 mL/min (90-130); Glucose 100 mg/dL (65-115); Magnesium 1.6 mg/dL (1.7-2.3); Phosphorus 2.9 mg/dL (2.5-4.5); Potassium 3.8 mmol/L (3.5-5.1); Sodium 137 mmol/L (136-145)
[2021-11-12 07:15] VITALS: BP 117/66; PULSE 67; RESP 18; TEMP 36.4; O2SAT 97
[2021-11-12 07:41] VITALS: PULSE 67; RESP 16; O2SAT 94
[2021-11-12] MEDS: magnesium sulfate premix 2 GM/50 ML PIGGYBACK IV (09:47)
[2021-11-12] MEDS: levothyroxine 125 mcg Tablet PO (09:48)
--- NOTE | 2021-11-12 11:01 | P.PN_ITS ---
Subjective Subjective: The patient reports feeling better. Had a bowel movement. It was dark but no active bleeding. No nausea or vomiting. No abdominal pain. No fever or chills. No chest pain, shortness of breath, cough, palpitations. Medications: Reviewed: Yes Medication Review Details: Generic Name Dose Route Start Last Admin Trade Name Freq PRN Reason Stop Dose Admin Hydrocodone Bitart /Acetaminophen 1 tab 11/10/21 12:43 11/11/21 23:04 Hydrocodone-Acet aminophen 10-325 M g Tablet PO 1 tab Q6H PRN Administration MODERATE Pain Aripiprazole 4 mg 11/10/21 23:00 11/11/21 22:10 Aripiprazole 2 M g Tablet PO 4 mg BEDTIME GENESIS Administration Diltiazem HCl 120 mg 11/10/21 23:00 11/11/21 22:11 Diltiazem Er (24 hr) 120 Mg Capsule PO 120 mg BEDTIME GENESIS Administration Duloxetine HCl 30 mg 11/10/21 23:00 11/11/21 22:11 Duloxetine 30 Mg Capsule PO 30 mg BEDTIME GENESIS Administration Ezetimibe 10 mg 11/10/21 23:00 11/11/21 22:11 Ezetimibe 10 Mg Tablet PO 10 mg DAILY GENESIS Administration Famotidine 20 mg 11/10/21 23:00 11/11/21 22:12 Famotidine 20 Mg Tablet PO 20 mg BEDTIME GENESIS Administration Fluticasone Propio anuja 1 spray 11/11/21 09:00 11/12/21 09:48 Fluticasone Nasa l [place] 16gm Btl INTRANASAL Not Given DAILY GENESIS Gabapentin 300 mg 11/10/21 23:15 11/11/21 22:11 Gabapentin 300 M g Capsule PO 300 mg BEDTIME GENESIS Administration Ciprofloxacin/Dext sabina 400 mg in 200 mls @ 200 mls/hr 11/10/21 23:55 11/12/21 00:04 Cipro IV Infused Q12H GENESIS Infusion Protocol Metronidazole 500 mg in 100 mls @ 100 mls/hr 11/10/21 18:00 11/12/21 09:47 Flagyl Iv IV 100 mls/hr Q6H GENESIS Administration Protocol Levothyroxine Sodi um 125 mcg 11/11/21 09:00 11/12/21 09:48 Levothyroxine 12 5 Mcg Tablet PO 125 mcg DAILY GENESIS Administration Montelukast Sodium 10 mg 11/10/21 23:15 11/11/21 22:12 Montelukast Sodi um 10 Mg Tablet PO 10 mg BEDTIME GENESIS Administration Sertraline HCl 100 mg 11/10/21 23:15 11/11/21 22:11 Sertraline 100 M g Tablet PO 100 mg BEDTIME GENESIS Administration Vitals/I&O/Wt Last Vital Signs Temp 97.6 F 11/12/21 07:15 Pulse 67 11/12/21 07:41 Resp 16 11/12/21 07:41 BP 117/66 11/12/21 07:15 Pulse Ox 94 11/12/21 07:41 11/11/21 11/12/21 11/12/21 22:59 06:59 14:59 Intake Total 220 / 1420 400 / 1820 360 / 360 Balance 220 / 1020 400 / 1420 360 / 360 Weight last 48 hrs Weight 110.223 kg Physical Exam Narrative: The patient is awake alert and oriented. No acute distress. Mood and affect are appropriate. Responses are adequate. Skin is warm and dry. Moist mucous membranes. Eyes PERRL, extraocular muscles intact. Neck supple. No JVD Lungs are clear bilaterally. Heart S1, S2, regular Abdomen is soft, nontender, bowel sounds are present Extremities no edema cyanosis or calf tenderness bilaterally Neuro examination is nonfocal Data : 11/12/21 03:35 11/12/21 03:35 A&P Assessment and plan (1) Acute diverticulitis: Cipro, Flagyl will be continued Blood cultures were not drawn prior to antibiotic administration. She does not appear septic, and at this point blood cultures are low yield. Consider getting this should she become febrile. This is associated with bleeding Discussed with her screening colonoscopy should be delayed until 6 weeks after episode of possible Hydration Repeat hemoglobin in 4 hours, sooner should she have recurrent bleeding. Status: Acute (2) Hematochezia: Secondary to diverticulitis, in this patient on Coumadin Status: Acute (3) Atrial flutter: Continue medications that are used for rate control Stop Coumadin secondary to bleeding Repeat INR tomorrow. As bleeding has slowed significantly and hemoglobin is acceptable will not reverse Status: Acute Qualifiers: Atrial flutter type: atypical Qualified Code(s): I48.4 - Atypical atrial flutter (4) Diabetes mellitus: When diet is initiated it will need to be consistent carb. Currently she is diet controlled, and no insulin is needed. No reason for Accu-Cheks currently. Status: Acute (5) COPD (chronic obstructive pulmonary disease): Albuterol as needed. No evidence of exacerbation. Status: Acute Plan [place] Rectal bleeding, probably diverticular. Continue monitoring H&H. We will transfuse if becomes clinically significant. Consider surgical consult. The patient requests Dr. Garcia will be back tomorrow. Anemia. So far stable. Continue close monitoring. Acute diverticulitis. Continue current Cipro and metronidazole. We will stop IV fluid. We will continue advancing diet. History of atrial flutter. Coumadin is on hold. Rate controlled. Continue monitoring INR. No reversal so far. COPD. Stable. No evidence of acute exacerbation. Full code SCDs for DVT prophylaxis. Anticoagulation contraindicated secondary to bleeding The plan of care was discussed with the patient. She verbalized understanding and agreement Attestations Medical Necessity Statement*: Still requires close monitoring, and needs IV antibiotics, still high risk for bleeding. Coding Level of Care Code Acute Senior Sustainability Consultant for [facility] Diagnoses Acute diverticulitis K57.92 Hematochezia K92.1 Atrial flutter I48.4 Atrial flutter type: atypical Diabetes mellitus E11.9 COPD (chronic obstructive pulmonary disease) J44.9
[2021-11-12 11:04] VITALS: BP 114/68; PULSE 64; RESP 18; TEMP 36.6; O2SAT 95
[2021-11-12] MEDS: ciprofloxacin 400 MG/200 ML PREMIX 200 MG IV ×2 (12:35→23:46)
[2021-11-12 15:03] VITALS: BP 114/69; PULSE 83; RESP 18; TEMP 36.4; O2SAT 95
[2021-11-12] MEDS: HYDROcodone-acetaminophen 10-325 mg Tablet 1 TAB PO (15:58)
[2021-11-12 20:00] VITALS: BP 117/74; PULSE 71; PULSE 72; RESP 16; RESP 17; TEMP 36.8; O2SAT 94; O2SAT 97
[2021-11-12] MEDS: dilTIAZem ER (24HR) 120 mg Capsule PO (20:53)
[2021-11-12] MEDS: ARIPiprazole 2 mg Tablet 4 MG PO (20:53)
[2021-11-12] MEDS: sertraline 100 mg Tablet PO (20:54)
[2021-11-12] MEDS: gabapentin 300 mg Capsule PO (20:54)
[2021-11-12] MEDS: famotidine 20 mg Tablet PO (20:54)
[2021-11-12] MEDS: montelukast sodium 10 mg Tablet PO (20:54)
[2021-11-12] MEDS: duloxetine 30 mg Capsule PO (20:54)
[2021-11-12] MEDS: ezetimibe 10 mg Tablet PO (20:54)
[2021-11-13] VITALS: BP 109/64; PULSE 84; RESP 17; TEMP 36.2; O2SAT 92
[2021-11-13] MEDS: metroNIDAZOLE IV 500 MG/100 ML PREMIX 100 MG IV ×3 (02:45→14:32)
[2021-11-13 03:24] LABS: Basophils % 0.9 %; Eosinophils # 0.2 10^3/uL (0.0-0.8); Eosinophils % 4.3 %; Hematocrit 24.4 % (37.0-47.0); Lymphocytes # 0.7 10^3/uL (0.8-4.8); Lymphocytes % 19.4 %; Mean Corpuscular HGB Conc 32.8 g/dL (30.0-36.0); Mean Corpuscular Hemoglobin 28.1 pg (28.0-34.0); Mean Corpuscular Volume 85.6 fl (81-99); Mean Platelet Volume 10.5 fL (7.4-10.4); Monocytes # 0.4 10^3/uL (0.2-0.9); Monocytes % 10.5 %; Neutrophils # 2.24 10^3/uL (1.8-7.7); Neutrophils % 63.8 %; Nucleated Red Blood Cells % 0 %; Platelet Count 195 10^3/cmm (130-400); Red Blood Count 2.85 10^6/uL (4.1-5.3); Red Cell Distribution Width 13.9 % (12.1-15.1); White Blood Count 3.5 10^3/uL (4.0-10.0)
[2021-11-13 03:37] LABS: INR 2.06 (0.8-1.2)
[2021-11-13 03:52] LABS: Albumin Level 2.9 g/dL (3.5-5.2); Blood Urea Nitrogen 5 mg/dL (8-23); Calcium 7.6 mg/dL (8.5-10.5); Carbon Dioxide 19 mmol/L (22-29); Chloride 105 mmol/L (98-107); Glomerular Filtration Rate 122.3 mL/min (90-130); Glucose 93 mg/dL (65-115); Magnesium 1.9 mg/dL (1.7-2.3); Phosphorus 2.9 mg/dL (2.5-4.5); Sodium 136 mmol/L (136-145)
[2021-11-13 04:00] VITALS: BP 113/68; PULSE 70; RESP 16; TEMP 36.6; O2SAT 96
[2021-11-13] MEDS: HYDROcodone-acetaminophen 10-325 mg Tablet 1 TAB PO (04:28)
[2021-11-13 07:10] VITALS: BP 115/65; PULSE 63; RESP 18; TEMP 36.4; O2SAT 97
[2021-11-13] MEDS: levothyroxine 125 mcg Tablet PO (08:04)
--- NOTE | 2021-11-13 09:21 | PC.SOCIAL ---
IMM Update Pg. 2 of IMM updated and reviewed with patient, who verbalized understanding. Copy provided.
[2021-11-13 10:05] VITALS: PULSE 65; RESP 17; O2SAT 98
[2021-11-13 11:52] VITALS: BP 113/63; PULSE 65; RESP 18; TEMP 36.6; O2SAT 96
[2021-11-13] MEDS: ciprofloxacin 400 MG/200 ML PREMIX 200 MG IV (12:21)
--- NOTE | 2021-11-13 15:16 | P.TS_ITS ---
Transfer Summary Providers Date of Admission: 11/10/21 12:43 Date of Discharge/Transfer: 11/13/21 Attending Provider at Admission: Talha Jackson MD Attending Provider at Transfer: Ani Sampson MD Primary Care Provider: Lorena Jackson MD Transfer Plans: Anticipated date of transfer: 11/13/21 . Diagnoses at Discharge Discharge Diagnosis (1) Acute diverticulitis: Status: Acute (2) Hematochezia: Status: Acute (3) Atrial flutter: Status: Acute Qualifiers: Atrial flutter type: atypical Qualified Code(s): I48.4 - Atypical atrial flutter (4) Diabetes mellitus: Status: Acute (5) COPD (chronic obstructive pulmonary disease): Status: Acute Permanent problem details: 2014 Reason for Visit Reason for Visit rectal bleeding/clots Hospital Course Hospital Course Patient is a 71-year-old female with history of COPD, atrial fibrillation on anticoagulation, hypothyroidism who presented to the hospital for bright red blood in stool. She also complained of abdominal pain. She had 6 bright red bloody bowel movements with clots. She also had 1 in the emergency department on admission. She said that she is due for her routine colonoscopy which is usually every 5 years and she was supposed to see her doctor this upcoming Saturday but she ended up in the hospital prior to that. CT abdomen pelvis was done which showed diverticulitis and she was started on Cipro and Flagyl. Patient is on Coumadin for A. fib which was stopped. She has not received any doses since being in the hospital. Patient's hemoglobin on admission was 12 and it has trended down to 8 over last 2 days. She is continuing to have blood in stool. Now she is reporting more of a black tarry melanotic stool along with red blood mixed in there. Hemoglobin is continuing to trend down. So far she has not required a blood transfusion since it has not dropped down to 7. Patient is on a calcium channel lauri diltiazem 180 daily. Heart rate is 60- [address] abdomen pelvis on admission did show acute diverticulitis involving the descending colon and some contrast material layering within the lumen suggesting active bleeding. Unable to further discriminate between arterial and venous bleeding on the single phase exam. We do not have general surgery or GI available at our hospital at this point and therefore patient will require higher level of care in case she needs colonic angiogram with interventional radiology versus EGD. Patient will be transferred to [facility] in [place]. This was discussed with the patient as well and she is agreeable at this time. Patient is hemodynamically stable. dicussed with GI in [place] and hospitalist. Will transfer patient. Physical Exam Narrative: General: Alert oriented x3, patient seen sitting up in bed appearing comfortable. HEENT: Normocephalic, atraumatic, EOMI, breathing normally. Cardio: Regular rate rhythm, normal S1-S2, no murmurs Respiratory: Good bilateral air entry, very mild coarse sounds at bases,no wheezes no rhonchi appreciated GI: Abdomen soft, nontender, nondistended, bowel sounds +, large ventral abdominal hernia noted. Behavior: Appropriate and cooperative Extremities: no edema, no cyanosis TS Data Studies Completed and Pending Labs from last 24 hours 11/13/21 11/13/21 11/13/21 02:25 02:25 02:25 WBC 3.5 L RBC 2.85 L Hgb 8.0 L Hct 24.4 L MCV 85.6 MCH 28.1 MCHC 32.8 RDW 13.9 Plt Count 195 MPV 10.5 H Neut % (Auto) 63.8 Lymph % (Auto) 19.4 Nye % (Auto) 10.5 Eos % (Auto) 4.3 Baso % (Auto) 0.9 Neut # (Auto) 2.24 Lymph # (Auto) 0.7 L Nye # (Auto) 0.4 Eos # (Auto) 0.2 Baso # (Auto) 0.0 Nucleated RBC % (auto) 0 Nucleated RBCs # 0.0 PT 23.70 H INR 2.06 H Sodium 136 Potassium 4.0 Chloride 105 Carbon Dioxide 19 L Anion Gap 16.0 BUN 5 L Creatinine 0.5 GFR Calculation 122.3 Glucose 93 Calcium 7.6 L Phosphorus 2.9 Magnesium 1.9 Albumin 2.9 L Completed Studies During Hospitalization Category Date Time Status CT abdomen pelvis w con* [id number] Stat Cat Scan 11/10/21 08:57 Completed XR chest 1V portable [id number] Stat Exams 11/10/21 08:57 Completed Laboratory Last Values WBC 3.5 10^3/uL (4.0-10.0) L 11/13/21 02:25 RBC 2.85 10^6/uL (4.1-5.3) L 11/13/21 02:25 Hgb 8.0 g/dL (11.5-15.3) L 11/13/21 02:25 Hct 24.4 % (37.0-47.0) L 11/13/21 02:25 MCV 85.6 fl (81-99) 11/13/21 02:25 MCH 28.1 pg (28.0-34.0) 11/13/21 02:25 MCHC 32.8 g/dL (30.0-36.0) 11/13/21 02:25 RDW 13.9 % (12.1-15.1) 11/13/21 02:25 Plt Count 195 10^3/cmm (130-400) 11/13/21 02:25 MPV 10.5 fL (7.4-10.4) H 11/13/21 02:25 Neut % (Auto) 63.8 % 11/13/21 02:25 Lymph % (Auto) 19.4 % 11/13/21 02:25 Nye % (Auto) 10.5 % 11/13/21 02:25 Eos % (Auto) 4.3 % 11/13/21 02:25 Baso % (Auto) 0.9 % 11/13/21 02:25 Neut # (Auto) 2.24 10^3/uL (1.8-7.7) 11/13/21 02:25 Lymph # (Auto) 0.7 10^3/uL (0.8-4.8) L 11/13/21 02:25 Nye # (Auto) 0.4 10^3/uL (0.2-0.9) 11/13/21 02:25 Eos # (Auto) 0.2 10^3/uL (0.0-0.8) 11/13/21 02:25 Baso # (Auto) 0.0 10^3/uL (0.0-0.1) 11/13/21 02:25 Nucleated RBC % (auto) 0 % 11/13/21 02:25 Nucleated RBCs # 0.0 /100WBC 11/13/21 02:25 PT 23.70 SECONDS (12.1-14.9) H 11/13/21 02:25 INR 2.06 (0.8-1.2) H 11/13/21 02:25 Sodium 136 mmol/L (136-145) 11/13/21 02:25 Potassium 4.0 mmol/L (3.5-5.1) 11/13/21 02:25 Chloride 105 mmol/L (98-107) 11/13/21 02:25 Carbon Dioxide 19 mmol/L (22-29) L 11/13/21 02:25 Anion Gap 16.0 (5-19) 11/13/21 02:25 BUN 5 mg/dL (8-23) L 11/13/21 02:25 Creatinine 0.5 mg/dL (0.5-0.9) 11/13/21 02:25 GFR Calculation 122.3 mL/min (90-130) 11/13/21 02:25 Glucose 93 mg/dL (65-115) 11/13/21 02:25 Calculated Osmolality 285 mOsm/kg (285-295) 11/11/21 05:00 Calcium 7.6 mg/dL (8.5-10.5) L 11/13/21 02:25 Phosphorus 2.9 mg/dL (2.5-4.5) 11/13/21 02:25 Magnesium 1.9 mg/dL (1.7-2.3) 11/13/21 02:25 Total Bilirubin 0.2 mg/dL (0.15-1.2) 11/11/21 05:00 AST 15 U/L (0-32) 11/11/21 05:00 ALT 12 U/L (0-33) 11/11/21 05:00 Alkaline Phosphatase 50 IU/L (35-105) 11/11/21 05:00 Total Protein 4.8 g/dL (6.6-8.7) L D 11/11/21 05:00 Albumin 2.9 g/dL (3.5-5.2) L 11/13/21 02:25 Globulin 1.6 g/dL (1.3-4.6) 11/11/21 05:00 TSH 1.56 uIU/mL (0.27-4.20) 11/10/21 09:20 Radiology Impressions Abdomen/Pelvis CT 11/10/21 08:57 IMPRESSION: 1. Acute diverticulitis involving the descending colon. Some contrast material layering within the lumen suggests active bleeding. Unable to further discriminate between arterial and venous bleeding on this single phase exam. 2. Moderate-sized ventral abdominal hernia to the right of midline containing nonobstructed transverse colon. COMMENTS: Consistent with the [employer]'s Incidental Findings Committee white paper (J Am Mathew Radiol 2018): Any incidental renal lesion less than 1 cm or classified as too small to characterize, or any incidental cystic renal lesion characterized as simple-appearing, is likely benign. No follow-up imaging is recommended for these lesions per consensus recommendations based on imaging criteria. ADDENDUM: 11/10/21 1107 THIS REPORT CONTAINS FINDINGS THAT MAY BE CRITICAL TO PATIENT CARE. The findings were verbally communicated via telephone conference with DAISY CHUNG at 11:06 AM CDT on 11/10/2021. The findings were acknowledged and understood. Chest X-Ray 11/10/21 08:57 IMPRESSION: 1. No acute cardiopulmonary finding. No change. Recent Clincial Data Last Vital Signs Temp 97.8 F 11/13/21 11:52 Pulse 65 11/13/21 11:52 Resp 18 11/13/21 11:52 BP 113/63 11/13/21 11:52 Pulse Ox 96 11/13/21 11:52 Vital Signs Temp Pulse Resp BP Pulse Ox 11/13/21 11:52 97.8 F 65 18 113/63 96 11/13/21 10:05 65 17 98 11/13/21 07:10 97.6 F 63 18 115/65 97 11/13/21 04:00 98 F 70 16 113/68 96 Intake & Output/Weight 11/11/21 11/12/21 11/13/21 11/14/21 06:59 06:59 06:59 06:59 Intake Total 1920 / 1920 1820 / 1820 2810 / 2810 660 / 660 Output Total 1290 / 1290 400 / 400 2500 / 2500 400 / 400 Balance 630 / 630 1420 / 1420 310 / 310 260 / 260 Weight 110.223 kg Vitals Last Vital Signs Temp 97.8 F 11/13/21 11:52 Pulse 65 11/13/21 11:52 Resp 18 11/13/21 11:52 BP 113/63 11/13/21 11:52 Pulse Ox 96 11/13/21 11:52 TS Medications Medications Acetaminophen (Acetaminophen 325 Mg Tablet) 650 mg PO Q6H PRN PRN Reason: Mild/Mod Pain Or Temp >/= 101 Hydrocodone Bitart/Acetaminophen (Hydrocodone-Acetaminophen 10-325 Mg Tablet) 1 tab PO Q6H PRN PRN Reason: MODERATE Pain Last Admin: 11/13/21 04:28 Dose: 1 tab Documented by: Albuterol Sulfate (Albuterol 8 Gm Mdi) 2 puff INHALATION Q6H.RESPIRATORY PRN PRN Reason: Shortness Of Breath Aripiprazole (Aripiprazole 2 Mg Tablet) 4 mg PO BEDTIME [facility] Last Admin: 11/12/21 20:53 Dose: 4 mg Documented by: Cyclobenzaprine HCl (Cyclobenzaprine 10 Mg Tablet) 5 mg PO TID PRN PRN Reason: MUSCLE SPASM Diltiazem HCl (Diltiazem Er (24hr) 120 Mg Capsule) 120 mg PO BEDTIME [facility] Last Admin: 11/12/21 20:53 Dose: 120 mg Documented by: Duloxetine HCl (Duloxetine 30 Mg Capsule) 30 mg PO BEDTIME [facility] Last Admin: 11/12/21 20:54 Dose: 30 mg Documented by: Ezetimibe (Ezetimibe 10 Mg Tablet) 10 mg PO BEDTIME [facility] Famotidine (Famotidine 20 Mg Tablet) 20 mg PO BEDTIME [facility] Last Admin: 11/12/21 20:54 Dose: 20 mg Documented by: Fluticasone Propionate (Fluticasone Nasal [place] 16gm Btl) 1 spray INTRANASAL DAILY [facility] Last Admin: 11/13/21 08:04 Dose: Not Given Documented by: Gabapentin (Gabapentin 300 Mg Capsule) 300 mg PO BEDTIME [facility] Last Admin: 11/12/21 20:54 Dose: 300 mg Documented by: Ciprofloxacin/Dextrose (Cipro) 400 mg in 200 mls @ 200 mls/hr IV Q12H [facility]; Protocol Last Infusion: 11/13/21 14:56 Dose: Infused Documented by: Metronidazole (Flagyl Iv) 500 mg in 100 mls @ 100 mls/hr IV Q6H [facility]; Protocol Last Admin: 11/13/21 14:32 Dose: 100 mls/hr Documented by: Levothyroxine Sodium (Levothyroxine 125 Mcg Tablet) 125 mcg PO DAILY [facility] Last Admin: 11/13/21 08:04 Dose: 125 mcg Documented by: Montelukast Sodium (Montelukast Sodium 10 Mg Tablet) 10 mg PO BEDTIME [facility] Last Admin: 11/12/21 20:54 Dose: 10 mg Documented by: Morphine Sulfate (Morphine 4 Mg/Ml Sdv 1 Ml) 2 mg IVP Q4H PRN PRN Reason: SEVERE PAIN Ondansetron HCl (Ondansetron 2 Mg/Ml Sdv 2 Ml) 4 mg IVP Q6H PRN PRN Reason: NAUSEA AND VOMITING Sertraline HCl (Sertraline 100 Mg Tablet) 100 mg PO BEDTIME [facility] Last Admin: 11/12/21 20:54 Dose: 100 mg Documented by: Discontinued Medications Diltiazem HCl (Diltiazem Er (24hr) 120 Mg Capsule) 120 mg PO DAILY [facility] Duloxetine HCl (Duloxetine 30 Mg Capsule) 30 mg PO DAILY [facility] Ezetimibe (Ezetimibe 10 Mg Tablet) 10 mg PO DAILY [facility] Ezetimibe (Ezetimibe 10 Mg Tablet) 10 mg PO DAILY [facility] Last Admin: 11/12/21 20:54 Dose: 10 mg Documented by: Famotidine (Famotidine 20 Mg Tablet) 20 mg PO DAILY [facility] Gabapentin (Gabapentin 300 Mg Capsule) 300 mg PO DAILY [facility] Ciprofloxacin/Dextrose (Cipro) 400 mg in 200 mls @ 200 mls/hr IV ONCE ONE; Protocol Stop: 11/10/21 12:06 Last Infusion: 11/10/21 14:28 Dose: Infused Documented by: Metronidazole (Flagyl Iv) 500 mg in 100 mls @ 100 mls/hr IV ONCE ONE Stop: 11/10/21 12:06 Last Infusion: 11/10/21 15:34 Dose: Infused Documented by: Sodium Chloride (Sodium Chloride 0.9%) 1,000 mls @ 70 mls/hr IV .[id number] [facility] Last Infusion: 11/12/21 09:45 Dose: Infused Documented by: Magnesium Sulfate (Magnesium Sulfate Premix) 2 gm in 50 mls @ 50 mls/hr IV ONCE ONE Stop: 11/12/21 09:44 Last Infusion: 11/12/21 10:50 Dose: Infused Documented by: Iohexol (Iohexol 300 Mg/Ml 100 Ml Btl) 0 ml IV ONCE ONE Stop: 11/10/21 10:14 Last Admin: 11/10/21 10:13 Dose: 95 ml Documented by: Montelukast Sodium (Montelukast Sodium 10 Mg Tablet) 10 mg PO DAILY [facility] Sertraline HCl (Sertraline 100 Mg Tablet) 100 mg PO DAILY [facility] Allergies Sulfa (Sulfonamide Antibiotics) Allergy (Unknown, Verified 11/10/21 11:55) Unknown Home Medications albuterol sulfate 90 mcg/actuation aerosol inhaler (ProAir HFA) 2 puff INHALATION Q6H PRN 11/16/19 [History Confirmed 11/10/21] cholecalciferol (vitamin D3) 1,250 mcg (50,000 unit) capsule 50,000 unit PO .weekly cap 11/16/19 [History Confirmed 11/10/21] cyclobenzaprine 5 mg tablet 5 mg PO TID PRN 11/16/19 [History Confirmed 11/10/21] ezetimibe 10 mg tablet (Zetia) 10 mg PO DAILY 11/16/19 [History Confirmed 11/10/21] fluticasone propionate 50 mcg/actuation nasal spray,suspension (Flonase Allergy Relief) 1 spray INTRANASAL DAILY 11/16/19 [History Confirmed 11/10/21] gabapentin 300 mg capsule 300 mg PO DAILY 11/16/19 [History Confirmed 11/10/21] levothyroxine 125 mcg capsule 125 mcg PO DAILY 11/16/19 [History Confirmed 11/10/21] lorazepam 1 mg tablet 1 mg PO DAILY PRN 11/16/19 [History Confirmed 11/10/21] montelukast 10 mg tablet 10 mg PO DAILY 11/16/19 [History Confirmed 11/10/21] multivitamin 1 tab PO DAILY 11/16/19 [History Confirmed 11/10/21] sertraline 100 mg tablet 100 mg PO DAILY 11/16/19 [History Confirmed 11/10/21] warfarin 5 mg tablet See Rx Instructions .ROUTE .COMPLEX 11/16/19 [History Confi rmed 11/10/21] aripiprazole 2 mg tablet (Abilify) 4 mg PO DAILY tab 11/11/20 [History Confirmed 11/10/21] diltiazem HCl 120 mg capsule,24 hr,extended release 120 mg PO DAILY #90 cap 12/08/20 [Rx Confirmed 11/10/21] nitroglycerin 0.4 mg sublingual tablet (Nitrostat) 0.4 mg SUBLINGUAL Q5M PRN #25 tab 03/28/21 [Rx Confirmed 11/10/21] calcium carb,cit 315 mg-vitamin D3 250 unit-phytosterols 200 mg tablet 1 tab PO DAILY 11/10/21 [History Confirmed 11/10/21] duloxetine 30 mg capsule,delayed release 30 mg PO DAILY 11/10/21 [History Confirmed 11/10/21] famotidine 20 mg tablet 20 mg PO DAILY 11/10/21 [History Confirmed 11/10/21] hydrocodone 10 mg-acetaminophen 325 mg tablet 1 tab PO Q6H PRN 11/10/21 [History Confirmed 11/10/21] omega-3 fatty acids-fish oil 684 mg-1,200 mg capsule,delayed release 1 cap PO DAILY 11/10/21 [History Confirmed 11/10/21] pseudoephedrine HCl 30 mg tablet (Sudafed) 30 mg PO Q6H PRN 11/10/21 [History Confirmed 11/10/21] Discharge Plan Discharge Patient Disposition: Xfer Other Condition: Stable Prescriptions: No Action warfarin 5 mg tablet See Rx Instructions .ROUTE .COMPLEX 0RF Rx Instructions: 5 mg orally SATURDAY - SATURDAY AND 2.5MG (1/2 TAB) ON SATURDAY ezetimibe [Zetia] 10 mg tablet 10 mg PO DAILY 0RF gabapentin 300 mg capsule 300 mg PO DAILY 0RF albuterol sulfate [ProAir HFA] 90 mcg/actuation HFA aerosol inhaler 2 puff INHALATION Q6H PRN (Reason: Shortness Of Breath) 0RF lorazepam 1 mg tablet 1 mg PO DAILY PRN (Reason: Seizures) 0RF multivitamin Tablet 1 tab PO DAILY 0RF fluticasone propionate [Flonase Allergy Relief] 50 mcg/actuation spray,suspension 1 spray INTRANASAL DAILY 0RF cyclobenzaprine 5 mg tablet 5 mg PO TID PRN (Reason: Pain) 0RF montelukast 10 mg tablet 10 mg PO DAILY 0RF levothyroxine 125 mcg capsule 125 mcg PO DAILY 0RF cholecalciferol (vitamin D3) 1,250 mcg (50,000 unit) capsule 50,000 unit PO .weekly 0RF sertraline 100 mg tablet 100 mg PO DAILY 0RF aripiprazole [Abilify] 2 mg tablet 4 mg PO DAILY 0RF diltiazem HCl 120 mg capsule,extended release 24 hr 120 mg PO DAILY Qty: 90 3RF nitroglycerin [Nitrostat] 0.4 mg tablet, sublingual 0.4 mg SUBLINGUAL Q5M PRN (Reason: chest pain) Qty: 25 3RF hydrocodone-acetaminophen 10-325 mg tablet 1 tab PO Q6H PRN (Reason: Pain) 0RF famotidine 20 mg tablet 20 mg PO DAILY 0RF Sudafed 30 mg Tablet 30 mg PO Q6H PRN (Reason: Sinus Symptoms) 0RF duloxetine 30 mg capsule,delayed release(DR/EC) 30 mg PO DAILY 0RF [place] 3 Fish Oil 684-1,200 mg Capsule,Delayed Release(Dr/Ec) 1 cap PO DAILY 0RF calcium carb,[id number] 315-250-200 mg-unit-mg Tablet 1 tab PO DAILY 0RF Referrals: Lorena Jackson MD [Primary Care Provider] - Transfer Attestations Time Spent in Transfer Care: greater than 30 min Quality Metrics Clinical Quality Measures [ No reported AMI, CVA or VTE this stay] Coding Level of Care Code Acute [employer] for g Fwd Diagnoses Acute diverticulitis K57.92 Hematochezia K92.1 Atrial flutter I48.4 Atrial flutter type: atypical Diabetes mellitus E11.9 COPD (chronic obstructive pulmonary disease) J44.9
[2021-11-13 16:00] VITALS: BP 117/69; PULSE 67; RESP 12; TEMP 36.9; O2SAT 94
[2021-11-13 16:35] LABS: Basophils # 0.1 10^3/uL (0.0-0.1); Basophils % 1.2 %; Eosinophils # 0.1 10^3/uL (0.0-0.8); Eosinophils % 2.9 %; Hematocrit 25.9 % (37.0-47.0); Hemoglobin 8.4 g/dL (11.5-15.3); Lymphocytes # 0.6 10^3/uL (0.8-4.8); Lymphocytes % 14.5 %; Mean Corpuscular HGB Conc 32.4 g/dL (30.0-36.0); Mean Corpuscular Hemoglobin 27.6 pg (28.0-34.0); Mean Corpuscular Volume 85.2 fl (81-99); Mean Platelet Volume 10.1 fL (7.4-10.4); Monocytes # 0.4 10^3/uL (0.2-0.9); Monocytes % 8.7 %; Neutrophils # 2.99 10^3/uL (1.8-7.7); Nucleated Red Blood Cells % 0 %; Platelet Count 219 10^3/cmm (130-400); Red Blood Count 3.04 10^6/uL (4.1-5.3); Red Cell Distribution Width 13.9 % (12.1-15.1); White Blood Count 4.2 10^3/uL (4.0-10.0)
--- NOTE | 2021-11-13 18:02 | PC.NURSE ---
Room to [facility] given by SUREKHA Null, Bed 4C 4202-2 ([phone]). Report called to SUREKHA Soria.
--- NOTE | 2021-11-14 13:15 | PC.NURSE ---
I was notified by Cheng Chaidez, quality control supervisor that Hydrocodone-APAP 10-325 mg tablet was pulled from [facility] but never administered by Hosea Humphreys RN. I spoke with Hosea and Rose Mcnally RN Clinical Nurse Parking Station Attendant that was charging that day and they both express difficulty scanning medications that day on behalf of Hosea. They verified that the Hydrocodone was administered around 1640.
== END 2021-11-13 19:00 | disposition short-term general hospital (02) | DRG 378 ==
LOC: ER 09:10 → MEDSURG 12:23
PROVIDERS: Internal Medicine; Admitting Provider Internal Medicine; Emergency Provider Family Medicine; PCP Family Medicine; Visit Provider Internal Medicine
DX: K57.31 Diverticulosis of large intestine without perforation or abscess with bleeding (principal); I48.4 Atypical atrial flutter; D62 Acute posthemorrhagic anemia; K92.1 Melena; E11.9 Type 2 diabetes mellitus without complications; J44.9 Chronic obstructive pulmonary disease, unspecified; Z79.01 Long term (current) use of anticoagulants; F32.A Depression, unspecified; F41.9 Anxiety disorder, unspecified; E03.9 Hypothyroidism, unspecified
CPT/HCPCS: 36415; 71045; 74177; 80053; 80069; 83735; 84443; 85014; 85018; 85025; 85610; 96365; 96367; 99285; J0744; J3475; J7030; Q9967; S0030

== ENCOUNTER → 2021-12-12 11:07 | Outpatient (BNVA) | payer MEDICARE, MEDICAID, SELFPAY | PROVIDERS: PCP Family Medicine; Visit Provider Internal Medicine Cardiovascular Disease | DX: I48.4 Atypical atrial flutter (principal); Z79.01 Long term (current) use of anticoagulants; E11.9 Type 2 diabetes mellitus without complications; J44.9 Chronic obstructive pulmonary disease, unspecified; I10 Essential (primary) hypertension; E78.00 Pure hypercholesterolemia, unspecified; Z79.84 Long term (current) use of oral hypoglycemic drugs | CPT/HCPCS: 99214 ==

== ENCOUNTER 2022-05-09 14:22 | Outpatient (CLI) | payer MEDICARE, MEDICAID, SELFPAY ==
--- NOTE | 2022-05-09 | XR_ITS ---
WS: [id number] DEXA (DUAL ENERGY X-RAY ABSORPTIOMETRY) Bone mineral density was performed using a iSnap machine. HISTORY: POSTMENOPAUSAL COMPARISON: 11/27/2019 Lumbar spine BMD (L1-L4): 1.132 g/cm2 T score: -0.4 Z score: 0.1 Total hip BMD: Left: 0.925 g/cm2. T score: -0.7 Z score: 0.0 Right: 0.968 g/cm2. T score: -0.3 Z score: 0.3 10 year probability of a major osteoporotic fracture is 8.7%. Compared to the prior study from 11/27/2019. Lumbar spine bone mineral density has increased by 1.9%. Bilateral hips bone mineral density has decreased by 2.7%. XR/XR DEXA axial skeleton* [id number] IMPRESSION: NORMAL BONE MINERAL DENSITY based upon the WHO classification for females. Significant decrease in bone mineral density within the hips since the prior .
== END 2022-05-09 14:23 | disposition home or self-care (01) ==
LOC: RAD 14:24
PROVIDERS: PCP Family Medicine; Visit Provider Family Medicine
DX: Z78.0 Asymptomatic menopausal state (principal)
CPT/HCPCS: 77080

== ENCOUNTER → 2022-06-05 15:28 | Outpatient (BNVA) | payer MEDICARE, MEDICAID, SELFPAY | PROVIDERS: PCP Family Medicine; Visit Provider Internal Medicine Cardiovascular Disease | DX: I48.4 Atypical atrial flutter (principal); E11.9 Type 2 diabetes mellitus without complications; Z79.84 Long term (current) use of oral hypoglycemic drugs; I10 Essential (primary) hypertension; E78.00 Pure hypercholesterolemia, unspecified; J44.9 Chronic obstructive pulmonary disease, unspecified; Z79.01 Long term (current) use of anticoagulants | CPT/HCPCS: 99214 ==

== ENCOUNTER 2023-01-01 08:11 | Outpatient (CLI) | payer OTHER, MEDICAID, SELFPAY ==
--- NOTE | 2023-01-01 08:31 | FL_ITS ---
WS: [email or web address] FL upper GI series [id number] REASON FOR EXAM: ESOPHAGEAL DYSPHAGIA FLUOROSCOPY TIME: 2min [id number] # OF SPOT FILMS: Multiple FINDINGS: Patient was examined in the upright, TOLLIVER prone, and supine positions. The swallowing of barium was monitored fluoroscopically with multiple rapid sequence spot films obtai jc. The cervical esophagus is normal. The thoracic esophagus demonstrates poor emptying with prolonged retention of barium due to extensive tertiary contractions and weak primary peristaltic wave. Retained contrast within the esophagus is s een to reflux towards the thoracic inlet intermittently. Large hiatal hernia with no significant narrowing of the gastroesophageal junction. When placed in the supine position there is reflux of contrast from the stomach into the esophagus. The stomach, duodenal bulb, and duodenal sweep are unremarkable. FL/FL upper GI series [id number] IMPRESSION: Esophageal dysmotility as above. Large hiatal hernia with gastroesophageal reflux.
== END 2023-01-01 08:12 | disposition home or self-care (01) ==
LOC: RAD 08:13
PROVIDERS: PCP Family Medicine; Visit Provider Electrodiagnostic Medicine
DX: R13.19 Other dysphagia (principal); K44.9 Diaphragmatic hernia without obstruction or gangrene; K21.9 Gastro-esophageal reflux disease without esophagitis
CPT/HCPCS: 74240

== ENCOUNTER → 2023-06-04 13:47 | Outpatient (BNVA) | payer MEDICARE, MEDICAID, SELFPAY | PROVIDERS: PCP Family Medicine; Visit Provider Internal Medicine Cardiovascular Disease | DX: I48.4 Atypical atrial flutter (principal); Z79.01 Long term (current) use of anticoagulants; E78.00 Pure hypercholesterolemia, unspecified; I10 Essential (primary) hypertension; E11.9 Type 2 diabetes mellitus without complications; J44.9 Chronic obstructive pulmonary disease, unspecified | CPT/HCPCS: 99214 ==

== ENCOUNTER 2023-08-21 20:00 | Outpatient (CLI) | payer MEDICARE, MEDICAID, SELFPAY | END 2023-08-21 20:01 | disposition home or self-care (01) | LOC: SLEEP 08-22 02:37 | PROVIDERS: PCP Family Medicine; Visit Provider Family Medicine | DX: G47.33 Obstructive sleep apnea (adult) (pediatric) (principal) | CPT/HCPCS: 95810 ==

== ENCOUNTER 2023-08-26 07:35 | Outpatient (CLI) | payer MEDICARE, MEDICAID, SELFPAY ==
--- NOTE | 2023-08-26 07:41 | MR_ITS ---
WS: [id number] MRI CERVICAL SPINE NONCONTRAST HISTORY: OTHER CERVICAL DISC DISPLACEMENT/CHRONIC PAIN COMPARISON: 10/14/2013 Technique: Multiplanar, multisequence noncontrast imaging of the cervical spine. Slight increase in the cervical lordosis has progressed since the prior study. Moderate narrowing of the disc spaces. Most significant at C4-5 and C5-6. No fractures or marrow edema. Signal within the cervical cord is normal. Visualized posterior fossa is unremarkable. Craniocervical junction, C1 and C2 relationship, odontoid process and soft tissues are normal. C2-C3: Mild vertebral body osteophytosis. No stenosis. C3-C4: Diffuse annular disc bulging, osteophytic ridging, bilateral facet joint arthritis and a shall ow central disc protrusion. Mild central and foraminal stenosis. LEFT facet joint synovitis. There is fluid surrounding the LEFT facet joint. C4-C5: Moderate osteophytic ridging and annular disc bulging and facet arthritis. Mild central and bi lateral foraminal stenosis. Slightly greater osteophyte encroachment upon the proximal RIGHT foramen. C5-C6: Diffuse osteophytic ridging and disc bulging. Disc osteophyte complexes extend into the forami na and a shallow central disc protrusion. Mild central and bilateral foraminal stenosis. No high-grad e stenosis. Minimal progression since the prior study. C6-C7: Mild disc bulging and osteophytic ridging. Mild central and bilateral foraminal stenosis. C7-T1: No stenosis. Nerve root sleeve diverticulum on the LEFT. Paraspinal soft tissue are normal. IMPRESSION: 1. Mild progression of spondylitic changes within the cervical spine since 10/14/2013. 2. Multilevel disc bulging and osteophytosis and facet arthritis. Most significant at C4-5 and C5-6. 3. C3-4: Mild central and bilateral foraminal stenosis with LEFT facet joint acute synovitis. 4. C4-5, C5-6 and C6-7: Mild central and bilateral foraminal stenosis due to disc and osteophyte dis ease. Slightly greater encroachment upon the ventral epidural space at C5-6. 5. No cord signal abnormalities
--- NOTE | 2023-08-26 07:41 | MR_ITS ---
WS: [id number] MRI LUMBAR SPINE NONCONTRAST HISTORY: LOW BACK PAIN COMPARISON: 12/15/2013 TECHNIQUE: Sagittal and axial multisequence imaging is submitted. Mild increase in thoracic kyphosis. L4 anterolisthesis by 5 mm has progressed since the prior MRI. Progression of degenerative disc disea se at L1-2 with involvement of the endplates. L1 retrolisthesis by 2 mm. Disc spaces are slightly desiccated. Most significant disc space narrowing and desiccation at L1-2. Conus terminates normally at L1-2 disc level. L1-L2: Diffuse annular disc bulging with encroachment and narrowing of the subarticular recesses and upon the ventral thecal sac. Bilateral moderate facet arthritis. Disc osteophyte encroaching bilatera lly into the foramina, RIGHT greater than LEFT. There is mild to moderate bilateral subarticular and foraminal stenosis, RIGHT greater than LEFT. L2-L3: Mild annular disc bulging encroaching upon the ventral thecal sac. Mild central, bilateral sub articular recess and foraminal stenosis which has progressed since the prior study. L3-L4: Diffuse annular disc bulging with marked ligamentum flavum and facet arthritis. Trefoil appear ance of the thecal sac. Moderate central, bilateral subarticular recess and LEFT foraminal stenosis. Mild RIGHT foraminal stenosis. Significant facet joint arthritis. L4-L5: Mild unroofing of the disc. Severe bilateral facet arthritis. Severe central with bilateral choe barticular recess and moderate foraminal stenosis. Progression since the prior study. L5-S1: Diffuse annular disc bulging with mild facet joint arthritis. Very mild foraminal encroachment . IMPRESSION: 1. L4 anterolisthesis by 5 mm has progressed since the prior study. 2. Progression of degenerative disc disease at L1-2 with chronic involvement of the endplates. 3. L3-4: Moderate central, bilateral subarticular recess and LEFT foraminal stenosis. Mild RIGHT for aminal stenosis. Significant facet joint arthritis. 4. L4-5: Severe central with bilateral subarticular recess and moderate foraminal stenosis. Stenoses and facet arthritis have progressed since the prior study. 5. L2-3: Mild central, bilateral subarticular recess and foraminal stenosis. 6. L1-2: Mild disc encroachment upon the subarticular recesses. Moderate facet joint arthropathy. Mi ld to moderate bilateral subarticular recess and foraminal stenosis, RIGHT greater than LEFT.
== END 2023-08-26 07:36 | disposition home or self-care (01) ==
LOC: RAD 07:35
PROVIDERS: PCP Family Medicine; Visit Provider Family Medicine
DX: M51.37 Other intervertebral disc degeneration, lumbosacral region (principal); M40.294 Other kyphosis, thoracic region; M43.16 Spondylolisthesis, lumbar region; M25.78 Osteophyte, vertebrae; M48.07 Spinal stenosis, lumbosacral region
CPT/HCPCS: 72141; 72148

== ENCOUNTER 2023-10-08 09:02 | Outpatient (RCR) | payer MEDICARE, MEDICAID, SELFPAY | END 2023-10-20 23:59 | disposition home or self-care (01) | LOC: SPT 09:02 | PROVIDERS: PCP Family Medicine; Visit Provider Family Medicine | DX: M25.511 Pain in right shoulder (principal); M25.512 Pain in left shoulder; M54.50 Low back pain, unspecified | CPT/HCPCS: 97110; 97161 ==

== ENCOUNTER 2023-10-21 06:00 | Outpatient (RCR) | payer MEDICARE, MEDICAID, SELFPAY | END 2023-11-19 23:59 | disposition home or self-care (01) | LOC: SPT 06:00 | PROVIDERS: PCP Family Medicine; Visit Provider Family Medicine | DX: M25.512 Pain in left shoulder (principal); M25.511 Pain in right shoulder; M54.50 Low back pain, unspecified | CPT/HCPCS: 97110 ==

== ENCOUNTER 2023-11-20 06:00 | Outpatient (RCR) | payer MEDICARE, MEDICAID, SELFPAY | END 2023-12-09 23:59 | disposition home or self-care (01) | LOC: SPT 06:00 | PROVIDERS: PCP Family Medicine; Visit Provider Family Medicine | DX: M25.511 Pain in right shoulder (principal); M25.512 Pain in left shoulder; M54.50 Low back pain, unspecified | CPT/HCPCS: 97110 ==

== ENCOUNTER 2024-01-01 15:06 | Emergency (ER) | payer MEDICARE, MEDICAID, SELFPAY ==
[2024-01-01 15:08] VITALS: BP 121/64; PULSE 88; RESP 18; TEMP 36.8; O2SAT 96; BMI 38.7
--- NOTE | 2024-01-01 15:17 | ECG_ITS ---
[facility] Test Date: 2024-01-01 Pat Name: Maida Shelton Department: Room: Gender: Female Client Renewal Specialist: : 1950 Requested By: Addie Obrien Order Number: [id number] Wes MD: Brice Murray M.D. Measurements Intervals [place] Rate: 88 P: 33 OR: 199 QRS: 6 QRSD: 76 T: 58 QT: 351 QTc: 425 Interpretive Statements SINUS RHYTHM LOW QRS VOLTAGE IN PRECORDIAL LEADS [QRS DEFLECTION < 1.0 mV IN CHEST LEADS] POSSIBLE ANTERIOR MYOCARDIAL INFARCTION , PROBABLY OLD [30 ms Q WAVE IN V3/V4, OR R < 0.2 mV IN V4] Compared to ECG 11/28/2018 19:22:18 Myocardial infarct finding now present First degree AV block no longer present Electronically Signed On 01-01-2024 17:03:09 CDT by Brice Murray M.D. [id number]
--- NOTE | 2024-01-01 15:17 | XRR_ITS ---
PROCEDURE INFORMATION: Exam: XR Chest Exam date and time: 01/01/2024 3:24 PM Age: 73 years old Clinical indication: Sternal or substernal pain; Additional info: Chest pain TECHNIQUE: Imaging protocol: Radiologic exam of the chest. Views: 1 view. COMPARISON: CR XR chest 1V portable [id number] 11/10/2021 9:05 AM FINDINGS: Lungs: Unremarkable. No consolidation or mass. Pleural spaces: Unremarkable. No pleural effusion. No pneumothorax. Heart/Mediastinum: Unremarkable. No cardiomegaly. Bones/joints: Unremarkable. XR/XR chest 1V portable [id number] IMPRESSION: No acute findings.
--- NOTE | 2024-01-01 15:18 | ED_ITS ---
HPI - Chest Pain 2 General: Chief Complaint: Chest Pain Stated Complaint: Chest Pain Time Seen by Provider: 01/01/24 15:11 History of Present Illness: 73-year-old female with a history of mor bid obesity, hypothyroidism, depression, GERD, COPD, diet-controlled diabetes mellitus, fibromyalgia and atrial fibrillation on Eliquis who presents to the emergency room with chest pain that has been intermittent for the last 5 days. She says she was seen about a month ago at [place] and had a crushing type chest pain at that time. She says now it feels more like a band across her chest. She received nitro and route. This seems to have helped some. She has had some cough she says. No nausea or vomiting. No abdominal pain. No dysuria. No lower extremity swelling. Vital signs are normal on presentation on room air. Review of Systems 2 Narrative: Constitutional symptoms: Negative except as documented in HPI. Skin symptoms: Negative except as documented in HPI. Eye symptoms: Negative except as documented in HPI. ENMT symptoms: Negative except as documented in HPI. Respiratory symptoms: Negative except as documented in HPI. Cardiovascular symptoms: Negative except as documented in HPI. Gastrointestinal symptoms: Negative except as documented in HPI. Genitourinary symptoms: Negative except as documented in HPI. Musculoskeletal symptoms: Negative except as documented in HPI. Neurologic symptoms: Negative except as documented in HPI. Psychiatric symptoms: Negative except as documented in HPI. Endocrine symptoms: Negative except as documented in HPI. PFSH ED 2 PFSH: Medical History Atrial flutter Chronic back pain COPD (chronic obstructive pulmonary disease) Depression with anxiety Diabetes mellitus Fibromyalgia GERD (gastroesophageal reflux disease) History of breast cancer History of TIA (transient ischemic attack) HTN (hypertension) Hypercholesterolemia Hypothyroidism IBS (irritable bowel syndrome) Surgical History History of bilateral mastectomy 1988 History of colonoscopy History of sleeve gastrectomy History of tonsillectomy S/P cataract extraction S/P cholecystectomy S/P hernia repair S/P hysterectomy S/P knee replacement Bilateral S/P mastectomy S/P tonsillectomy S/P TRAM (transverse rectus abdominis muscle) flap breast reconstruction 1989 S/P tubal ligation Family History Mother Bleeding disorder CAD (coronary artery disease), Onset Age: 70 Family/Other Cancer Diabetes Brother Diabetes Daughter Lung disease Daughter Lung disease Father Stroke Other Heart disease Denies family history of Clotting disorder Dementia Chronic kidney disease (CKD) Suicide Anesthesia complication Social History Smoking and tobacco/nicotine status: never used tobacco/nicotine Alcohol intake: never Substance/Drug Use: never Physical Exam 2 Narrative: EXAM NARRATIVE: General: Alert, no acute distress. Skin: Warm, dry. Head: Normocephalic, atraumatic. Neck: Supple, trachea midline. Eye: Extraocular movements are intact. Ears, nose, mouth and throat: mucosa moist. Cardiovascular: Regular, Normal peripheral perfusion. Respiratory: Lungs are clear to auscultation, respirations are non-labored, breath sounds are equal, Symmetrical chest wall expansion. Gastrointestinal: Soft, Nontender, Non distended, Normal bowel sounds. Musculoskeletal: Normal ROM, no deformity. Neurological: Alert and oriented, No focal neurological deficit observed. Psychiatric: Cooperative, appropriate mood & affect. Course 2 Vital Signs: Vital signs: Vital Signs Temperature 98.2 F 01/01/24 15:08 Pulse Rate 71 01/01/24 17:21 Respiratory Rate 18 01/01/24 15:08 Blood Pressure 127/82 01/01/24 17:21 Pulse Oximetry 94 01/01/24 17:21 Oxygen Delivery Me thod Room Air 01/01/24 17:21 MDM - Chest Pain Medical Decision Making Differential diagnosis for patient with chest pain includes but is not limited to and based on the above HPI, review of systems and physical exam: Pneumonia. unstable angina. angina. Acute coronary syndrome / NH. Pulmonary embolism. Costochondritis / musculoskeletal. Pleurisy. Pericarditis. Esophageal spasm. Pancreatis. Cholecystitis. Workup: Lab work, chest X-ray and EKG ordered to evaluate, rule in and rule out above pathologies. Lab Review: Laboratory results were reviewed and interpreted by myself the emergency room physician. Lab work is unremarkable. No leukocytosis. Hemoglobin is 11.3. BUN and creatinine are 19 and 0.9. Serial troponins are normal. EKG: Time 1511. Rate 88. Normal sinus rhythm, No ST-T changes, no ectopy, normal OR & QRS intervals, This was reviewed and interpreted by myself the ER physician at 1512 Chest x-ray: No acute process. No infiltrate. No pneumothorax. No cardiomegaly. This was reviewed and interpreted by myself the ER physician. Repeat EKG: Time 1717. Rate 65. Normal sinus rhythm, No ST-T changes, no ectopy, normal OR & QRS intervals, This was reviewed and interpreted by myself the ER physician at 1720. No changes from previous EKG I reviewed the patient's medical record. Reexamination: On reexamination the patient is sitting up in bed. She is in no distress. She is has no increased work of breathing. No altered mental status. No focal motor deficits. She says morphine helped the pain in her chest significantly. Whereas nitro really has not. Her primary is trying to get a stress test scheduled. Assessment and plan: Chest pain, noncardiac - Discharged home - Discussed plan with patient. Answered any questions. - Evaluation and treatment of this problem were appropriate in the emergency setting. Lab Data 01/01/24 15:22 01/01/24 15:22 Radiology Impressions Chest X-Ray 01/01/24 15:17 IMPRESSION: No acute findings. Laboratory Results WBC 5.76 10^3/uL (3.29-11.43) 01/01/24 15: RBC 4.26 10^6/uL (3.85-5.65) 01/01/24 15: Hgb 11.30 g/dL (11.27-16.99) 01/01/24 15: Hct 34.5 % (36-47) L 01/01/24 15: MCV 81.0 fl (85-98) L 01/01/24 15:22 MCH 26.5 pg (27-33) L 01/01/24 15: MCHC 32.8 g/dL (30-55) 01/01/24 15: RDW 13.4 % (12.1-15.1) 01/01/24 15: Plt Count 293 10^3/cmm (157-399) 01/01/24 15: MPV 10.4 fL (7.4-10.4) 01/01/24 15: Neut % (Auto) 68.1 % 01/01/24 15:22 Lymph % (Auto) 20.5 % 01/01/24 15:22 [place] % (Auto) 7.8 % 01/01/24 15:22 Eos % (Auto) 2.6 % 01/01/24 15:22 Baso % (Auto) 0.7 % 01/01/24 15:22 Neut # (Auto) 3.92 10^3/uL (1.8-7.7) 01/01/24 15:22 Lymph # (Auto) 1.2 10^3/uL (0.8-4.8) 01/01/24 15:22 [place] # (Auto) 0.5 10^3/uL (0.2-0.9) 01/01/24 15:22 Eos # (Auto) 0.2 10^3/uL (0.0-0.8) 01/01/24 15:22 Baso # (Auto) 0.0 10^3/uL (0.0-0.1) 01/01/24 15: Nucleated RBC % (auto) 0 % 01/01/24 15:22 Nucleated RBCs # 0.0 /100WBC 01/01/24 15:22 Sodium 135 mmol/L (136-145) L 01/01/24 15:22 Potassium 3.9 mmol/L (3.5-5.1) 01/01/24 15:22 Chloride 97 mmol/L (98-107) L 01/01/24 15:22 Carbon Dioxide 23 mmol/L (22-29) 01/01/24 15:22 Anion Gap 18.9 (5-19) 01/01/24 15:22 BUN 19 mg/dL (8-23) 01/01/24 15:22 Creatinine 0.9 mg/dL (0.5-0.9) 01/01/24 15:22 GFR Calculation Not Reportable 01/01/24 15:22 Glucose 134 mg/dL (65-115) H 01/01/24 15:22 Calculated Osmolality 284 mOsm/kg (285-295) L 01/01/24 15:22 Calcium 8.7 mg/dL (8.5-10.5) 01/01/24 15:22 Total Bilirubin 0.2 mg/dL (0.15-1.2) 01/01/24 15:22 AST 18 U/L (0-32) 01/01/24 15:22 ALT 14 U/L (0-33) 01/01/24 15:22 Alkaline Phosphatase 98 U/L (35-105) 01/01/24 15:22 Troponin T Baseline 8 ng/L (0-10) 01/01/24 15:22 Troponin T 120 Minute 8.22 ng/L (0-10) 01/01/24 17:06 Delta Troponin T 0.22 ABS# (0-10) 01/01/24 17:06 C-Reactive Protein 3.0 mg/L (0.0-4.9) 01/01/24 15:22 Total Protein 6.2 g/dL (6.6-8.7) L 01/01/24 15:22 Albumin 3.9 g/dL (3.5-5.2) 01/01/24 15:22 Globulin 2.3 g/dL (1.3-4.6) 01/01/24 15:22 Urine Color Yellow (Yellow) 01/01/24 16:06 Urine Appearance Clear (CLEAR) 01/01/24 16:06 Urine pH 6 (5-7) 01/01/24 16:06 Ur Specific [place] 1.015 (1.005-1.030) 01/01/24 16:06 Urine Protein Neg (Negative) 01/01/24 16:06 Urine Glucose (UA) Norm (Normal) 01/01/24 16:06 Urine Ketones Negative (Negative) 01/01/24 16:06 Urine Blood Neg (Negative) 01/01/24 16:06 Urine Nitrate Negative (Negative) 01/01/24 16:06 Urine Bilirubin Neg (Negative) 01/01/24 16:06 Urine Urobilinogen Norm mg/dL (Negative) 01/01/24 16:06 Ur Leukocyte Esterase Negative (Negative) 01/01/24 16:06 Urine RBC None /hpf (0-2) 01/01/24 16:06 Urine WBC None /hpf (0-5) 01/01/24 16:06 Ur Squamous Epith Cells None /hpf (0-5) 01/01/24 16:06 Amorphous Sediment Not Reportable 01/01/24 16:06 Urine Bacteria None /hpf (NONE) 01/01/24 16:06 All radiology interpretation(s) finalized by discharge Discharge Plan Discharge Patient Disposition: Home Clinical Impression: Chest pain, non-cardiac Condition: Stable Prescriptions: No Action ezetimibe [Zetia] 10 mg tablet 10 mg PO DAILY albuterol sulfate [ProAir HFA] 90 mcg/actuation HFA aerosol inhaler 2 puff INHALATION Q6H PRN (Reason: Shortness Of Breath) multivitamin Tablet 1 tab PO DAILY fluticasone propionate [Flonase Allergy Relief] 50 mcg/actuation spray,suspension 1 spray INTRANASAL DAILY cyclobenzaprine 5 mg tablet 5 mg PO TID PRN (Reason: Pain) montelukast 10 mg tablet 10 mg PO DAILY levothyroxine 125 mcg capsule 125 mcg PO DAILY sertraline 100 mg tablet 50 mg PO DAILY aripiprazole [Abilify] 2 mg tablet 2 mg PO DAILY magnesium oxide [MagOx] 400 mg (241.3 mg magnesium) tablet 400 mg PO DAILY pantoprazole [Protonix] [address] for susp in packet 40 mg PO DAILY pregabalin [Lyrica] 25 mg capsule 25 mg PO BID metoclopramide HCl [Reglan] 5 mg tablet 5 mg PO DAILY sertraline [Zoloft] 50 mg tablet 50 mg PO DAILY ferrous sulfate [Feosol] 325 mg (65 mg iron) tablet 325 mg PO DAILY sucralfate [Carafate] 1 gram tablet 1 g PO BID Eliquis 5 mg tablet 5 mg PO BID Qty: 60 11RF nitroglycerin [Nitrostat] 0.4 mg tablet, sublingual 0.4 mg SUBLINGUAL Q5M PRN (Reason: chest pain) Qty: 25 3RF diltiazem HCl 120 mg capsule,extended release 24hr See Rx Instructions .ROUTE .COMPLEX Qty: 90 3RF Dose Instruction: TAKE ONE CAPSULE BY MOUTH DAILY Rx Instructions: TAKE ONE CAPSULE BY MOUTH DAILY hydrocodone-acetaminophen 10-325 mg tablet 1 tab PO Q6H PRN (Reason: Pain) Sudafed 30 mg Tablet 30 mg PO Q6H PRN (Reason: Sinus Symptoms) Gibson 3 Fish Oil 684-1,200 mg Capsule,Delayed Release(Dr/Ec) 1 cap PO DAILY calcium carb,[id number] 315-250-200 mg-unit-mg Tablet 1 tab PO DAILY duloxetine 30 mg capsule,delayed release(DR/EC) 90 mg PO DAILY Discharge Orders: Discharge ED (Routine); Ordered 01/01/24 Ordered By: Addie Johnson Referrals: Lorena Jackson MD [Primary Care Provider] - 1-3 days Patient Instructions: Noncardiac Chest Pain (ED) Activity Restrictions/Additional Instructions: Thank you for choosing [facility] for your healthcare needs today. Please realize this is an emergency room and that we are providing you with a medical screening exam and this may not be complete and all inclusive of all the testing and or work up that you may need to determine your ailment or severity of your illness. You have been screened and evaluated and felt safe for discharge. Health conditions do change or evolve sometimes and as such it is important that you follow up with your Primary Doctor to be re checked, 3-5 days is a general good time frame for follow up. You are always welcome to return to the ED for re assessment if your symptoms are worsening or you have new concerns Coding Level of Care Code ED Trout Farmer for Mira Dwyer
[2024-01-01 15:28] VITALS: BP 121/64; PULSE 70; O2SAT 96
[2024-01-01 15:37] LABS: Basophils % 0.7 %; Eosinophils # 0.2 10^3/uL (0.0-0.8); Eosinophils % 2.6 %; Hematocrit 34.5 % (36-47); Lymphocytes # 1.2 10^3/uL (0.8-4.8); Lymphocytes % 20.5 %; Mean Corpuscular HGB Conc 32.8 g/dL (30-55); Mean Corpuscular Hemoglobin 26.5 pg (27-33); Mean Platelet Volume 10.4 fL (7.4-10.4); Monocytes # 0.5 10^3/uL (0.2-0.9); Monocytes % 7.8 %; Neutrophils # 3.92 10^3/uL (1.8-7.7); Neutrophils % 68.1 %; Nucleated Red Blood Cells % 0 %; Platelet Count 293 10^3/cmm (157-399); Red Blood Count 4.26 10^6/uL (3.85-5.65); Red Cell Distribution Width 13.4 % (12.1-15.1); White Blood Count 5.76 10^3/uL (3.29-11.43)
[2024-01-01 16:36] LABS: Alanine Aminotransferase 14 U/L (0-33); Albumin Level 3.9 g/dL (3.5-5.2); Alkaline Phosphatase 98 U/L (35-105); Anion Gap 18.9 (5-19); Aspartate Amino Transferase 18 U/L (0-32); Blood Urea Nitrogen 19 mg/dL (8-23); Calcium 8.7 mg/dL (8.5-10.5); Carbon Dioxide 23 mmol/L (22-29); Chloride 97 mmol/L (98-107); Creatinine Clr Calc Pharmacy 71.6153; Globulin 2.3 g/dL (1.3-4.6); Glucose 134 mg/dL (65-115); Osmolality Calculated 284 mOsm/kg (285-295); Potassium 3.9 mmol/L (3.5-5.1); Sodium 135 mmol/L (136-145); Total Bilirubin 0.2 mg/dL (0.15-1.2); Total Protein 6.2 g/dL (6.6-8.7)
[2024-01-01 16:41] LABS: Bilirubin Urine Neg (Negative); Blood Urine Neg (Negative); Glucose Urine UA Norm (Normal); Ketones Urine Negative (Negative); Leukocyte Esterase Urine Negative (Negative); Nitrate Urine Negative (Negative); Protein Urine Neg (Negative); Specific Gravity, Urine 1.015 (1.005-1.030); Urine Appearance Clear (CLEAR); Urine Color Yellow (Yellow); Urobilinogen Urine Norm (Negative); pH Urine 6 (5-7)
[2024-01-01 16:49] LABS: Troponin(5th) Baseline 8 ng/L (0-10)
[2024-01-01] MEDS: morphine 4 mg/mL SDV 1 mL IVP (17:15)
[2024-01-01] MEDS: ondansetron 2 mg/ML SDV 2 mL 4 MG IVP (17:15)
--- NOTE | 2024-01-01 17:17 | ECG_ITS ---
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 Measurements Intervals [place] Rate: 65 P: 49 KS: 200 QRS: 0 QRSD: 74 T: 60 QT: 404 QTc: 422 Interpretive Statements SINUS RHYTHM LOW QRS VOLTAGE IN PRECORDIAL LEADS [QRS DEFLECTION < 1.0 mV IN CHEST LEADS] Compared to ECG 01/01/2024 15:11:21 Myocardial infarct finding no longer present Electronically Signed On 01-02-2024 0:05:00 CDT by Brice Murray M.D. [id number]
[2024-01-01 17:21] VITALS: BP 127/82; PULSE 71; O2SAT 94
[2024-01-01 17:47] LABS: Troponin 5 2HR 8.22 ng/L (0-10); Troponin 5 2HR Delta 0.22 ABS# (0-10)
[2024-01-01 18:27] VITALS: BP 154/88; PULSE 71; O2SAT 96
== END 2024-01-01 18:42 | disposition home or self-care (01) ==
PROVIDERS: Emergency Provider Emergency Medicine; PCP Family Medicine
DX: R07.89 Other chest pain (principal); Z79.01 Long term (current) use of anticoagulants; J44.9 Chronic obstructive pulmonary disease, unspecified; E11.9 Type 2 diabetes mellitus without complications; Z85.3 Personal history of malignant neoplasm of breast; Z86.73 Personal history of transient ischemic attack (TIA), and cerebral infarction without residual deficits; I10 Essential (primary) hypertension
CPT/HCPCS: 36415; 71045; 80053; 81001; 84484; 85025; 86140; 93005; 96374; 96375; 99285; J2270; J2405

== ENCOUNTER 2024-01-20 07:24 | Outpatient (CLI) | payer MEDICARE, MEDICAID, SELFPAY ==
[2024-01-20 07:45] VITALS: BMI 38.7
--- NOTE | 2024-01-20 07:45 | ECG_ITS ---
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 Interpretive Statements NAME OF STUDY: LEXISCAN SESTAMIBI STRESS TEST INDICATION: Chest Pain PROCEDURE: At the baseline, the EKG revealed normal sinus rhythm with a poor R wave progression.. The baseline heart was 66 bpm with a blood pressue of 135/82 mm of Hg Lexiscan was infused over a period of 20 seconds. A total of 0.4 milligrams of Lexiscan was infused. The stress phase was continued for a total of 5 minutes. Heart rate at the end of the stress phase was 78 bpm with a blood pressure 133/84 mm of Hg. The EKG at the peak infusion revealed no significant changes. Sestamibi was injected 20 seconds after the Lexiscan infusion. Heart rate at the end of the recovery phase was 70 bpm with a blood pressure of 133/75 mm of Hg. CONCLUSION: 1. No significant EKG changes with the LexiScan infusion 2. No LexiScan induced chest pain or cardiac arrhythmia 3. Normal blood pressure and heart rate response 4. Sestamibi/sestamibi perfusion scan pending; see separate report. Electronically Signed On 01-23-2024 3:38:47 CDT by Brynn Vergara M.D. [id number]
--- NOTE | 2024-01-20 07:46 | NMCV_ITS ---
NM yris perf SPECT r/s* [id number] Maida Shelton Age: 73 Gender: F : 1950 Exam Date: 01/20/2024 07:46 Ordering Phys: Lorena Jackson MD Technologist: ALBERT Woodard Exam Location: [facility] Indications: CP STRESS TEST [facility] IMAGE PROTOCOL Rest/Stress 1 Lexiscan Day Radiopharmaceutical Dose (mCi) Administration Site Administered by Rest: Tc-99m 10.4 IV ALBERT Woodard Sestamibi Stress:Tc-99m 33.0 IV ALBERT Woodard Sestamibi Rest: 20-Jan-2024 60 Discovery 630 Stress: 20-Jan-2024 30 Discovery 630 0.4mg Lexiscan. Supine position only as patient was unable to lay prone. SPECT RESULTS Technical Quality: Good Raw Data Analysis: Breast attenuation Image Corrections: No attenuation or motion correction applied Summed Stress Score: 5 Summed Rest Score: 2 Summed Difference Score: 3 PERFUSION FINDINGS Small to moderate area of minimal to moderately decreased tracer uptake involving the mid inferolateral, apical inferior and apical lateral segments. Some reversibility was noted in the apical inferior and apical lateral FUNCTIONAL RESULTS (calculated via Gated SPECT) Stress Image LV EF (%): 71 Stress EDV (mL):90 TID: 0.98 Stress ESV (mL):26 FUNCTIONAL FINDINGS: Segmental wall motion analysis revealing no gross wall motion abnormalities IMPRESSIONS 1. Myocardial perfusion imaging revealing small to moderate area of reversible defect in the apical inferior, apical lateral and mid inferolateral segments suggesting ischemia in the distribution of the left circumflex artery/right coronary artery. 2. Normal LV ejection fraction of 71%. 3. LV wall motion analysis revealing no gross wall motion abnormalities. 4. Normal LV volume No similar previous studies are available for comparison Dr Brynn Vergara MD [facility] (Electronically Signed) Final Date: 21 January 2024 00:30 S
[2024-01-20] MEDS: regadenoson 0.4 Mg/5 ml Syringe 0.400000000000000022 MG IVP (09:20)
[2024-01-20 09:43] VITALS: BP 133/72; PULSE 72
== END 2024-01-20 07:25 | disposition home or self-care (01) ==
PROVIDERS: PCP Family Medicine; Visit Provider Family Medicine
DX: R94.39 Abnormal result of other cardiovascular function study (principal); R07.9 Chest pain, unspecified
CPT/HCPCS: 36415; 78452; 93017; 96374; A9500; J2785

== ENCOUNTER → 2024-02-05 15:37 | Outpatient (BNVA) | payer MEDICARE, MEDICAID, SELFPAY | PROVIDERS: PCP Family Medicine; Visit Provider Internal Medicine Cardiovascular Disease | DX: R07.9 Chest pain, unspecified (principal) | CPT/HCPCS: 93005; 99215 ==

== ENCOUNTER 2024-02-14 11:50 | Inpatient (IN) | payer MEDICARE, MEDICAID, SELFPAY ==
[2024-02-14] VITALS (48 sets, daily range): BP systolic 109–158; BP diastolic 55–95; PULSE 68–81; RESP 14–21; TEMP 36.9; O2SAT 91–99; BMI 39.4; BMI 39.0
--- NOTE | 2024-02-14 11:58 | ECG_ITS ---
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 Measurements Intervals [place] Rate: 69 P: -33 SC: 164 QRS: -5 QRSD: 76 T: 66 QT: 386 QTc: 414 Interpretive Statements SINUS RHYTHM LOW QRS VOLTAGE IN EXTREMITY LEADS [QRS DEFLECTION < 0.5 mV IN LIMB LEADS] Compared to ECG 02/05/2024 15:41:42 First degree AV block no longer present Electronically Signed On 02-14-2024 19:57:37 CDT by Brynn Vergara M.D. [id number]
--- NOTE | 2024-02-14 12:04 | XR_ITS ---
WS: [id number] XR chest 1V portable [id number] REASON FOR EXAM: chest pain FINDINGS: Chest is unchanged compared to 01/01/2024. Moderate tortuosity and ectasia of the thoracic aorta with mild cardiomegaly. Moderate hiatal hernia. Calcified granulomas disease bilaterally. No acute or subacute pulmonary parenchymal or pleural abnormality. Significant degenerative spondylosis in the thoracic spine. XR/XR chest 1V portable [id number] IMPRESSION: Stable chest without acute abnormality.
--- NOTE | 2024-02-14 12:27 | ED_ITS ---
HPI - Chest Pain 2 General: Chief Complaint: Chest Pain Stated Complaint: CHEST PAIN Time Seen by Provider: 02/14/24 11:53 History of Present Illness: 73-year-old female presents emergency ro om with complaint of chest pain. She states she recently had a stress test that was positive she is being scheduled for an angiogram. She has a history of diabetes mellitus and hypertension as well as A-fib flutter. She reports chest pain began while at rest radiates into her neck and arm she did get some improvement with nitroglycerin MD complaint: chest pain Onset (ago): hour(s) Timing of current episode: episodic Prior episodes: Yes Onset: during rest Pain location: substernal Pain radiation: left arm and back Severity: moderate Quality: aching and heaviness Relieving factors: nitroglycerin Exacerbating factors: nothing Associated symptoms: Reports dyspnea, nausea and sense of impending doom; Deny abdominal pain or fever(s) Treatment prior to arrival: nitroglycerin Review of Systems 2 Const: Denies: fever(s) or chills Card: Reports: chest pain Resp: Reports: dyspnea GI: Reports: nausea; Denies: abdominal pain : Denies: dysuria, urinary frequency or urinary urgency Musc: Denies: neck pain or back pain Skin/Breast: Denies: rash PFSH ED 2 PFSH: Medical History Hypothyroidism Chronic back pain Depression with anxiety GERD (gastroesophageal reflux disease) IBS (irritable bowel syndrome) COPD (chronic obstructive pulmonary disease) Diabetes mellitus History of TIA (transient ischemic attack) Fibromyalgia History of breast cancer HTN (hypertension) Atrial flutter Hypercholesterolemia Surgical History S/P knee replacement Bilateral S/P cholecystectomy S/P hernia repair S/P hysterectomy S/P mastectomy S/P tubal ligation S/P tonsillectomy S/P cataract extraction History of colonoscopy History of bilateral mastectomy 1988 History of tonsillectomy S/P TRAM (transverse rectus abdominis muscle) flap breast reconstruction 1989 History of sleeve gastrectomy Family History Mother Bleeding disorder CAD (coronary artery disease), Onset Age: 70 Family/Other Cancer Diabetes Brother Diabetes Daughter Lung disease Daughter Lung disease Father Stroke Other Heart disease Denies family history of Clotting disorder Dementia Chronic kidney disease (CKD) Suicide Anesthesia complication Social History Smoking and tobacco/nicotine status: unknown if used tobacco/nicotine Alcohol intake: never Substance/Drug Use: never Physical Exam 2 Const: GENERAL APPEARANCE: cooperative and comfortable O RIENTATION/CONSCIOUSNESS: Yes awake, Yes oriented to person, Yes oriented to place and Yes oriented to time HENMT: COMMON NORMALS: normocephalic, atraumatic and hearing grossly normal bilaterally HEAD & SCALP: normocephalic and atraumatic Resp: COMMON NORMALS: normal respiratory effort, No retractions, No use of accessory muscles and clear to auscultation bilaterally AUSCULTATION: clear to auscultation bilaterally Cardio: COMMON NORMALS: regular rate, regular rhythm and No murmurs present (Cardio) RATE: regular rate RHYTHM: regular rhythm GI: COMMON NORMALS: Soft to palpation and No hepatosplenomegaly present A USCULTATION: Yes normoactive bowel sounds PALPATION: Yes Soft to palpation, No Tenderness to palpation present (GI), No Guarding due to palpation present (GI) and Yes No hepatosplenomegaly present Extremity: COMMON NORMALS: normal to inspection, capillary refill normal, no clubbing, cyanosis or edema, no calf tenderness and no pedal edema Neuro: SENSORIUM/ORIENTATION: Yes oriented to person, Yes oriented to place and Yes oriented to time Skin: COMMON NORMALS: no rashes or lesions noted GENERAL SKIN EXAM: no rashes or lesions noted Course 2 Vital Signs: Vital signs: Vital Signs Temperature 98.4 F 02/14/24 11:53 Pulse Rate 77 02/14/24 11:53 Respiratory Rate 18 02/14/24 11:53 Blood Pressure 145/85 02/14/24 14:10 Pulse Oximetry 97 02/14/24 14:10 Oxygen Delivery Me thod Room Air 02/14/24 11:53 MDM - Chest Pain Medical Decision Making Chest pain radiating to her back. Improved by nitro. She did positive stress test earlier this month pain and improvement to get nitro prior to arrival and then recurred improved and then worsened again. Denies show was titrated up currently she is on 20 mcg. Discussed with hospitalist and was cardiology on- call will admit for further evaluation her EKG and her initial troponins did not show any acute changes Medical Records I reviewed the patient's medical records. Lab Data I reviewed the patient's lab results. 02/14/24 12:37 02/14/24 12:37 Radiology Impressions Chest X-Ray 02/14/24 12:04 IMPRESSION: Stable chest without acute abnormality. Laboratory Results WBC 9.15 10^3/uL (3.29-11.43) 02/14/24 12:37 RBC 4.66 10^6/uL (3.85-5.65) 02/14/24 12:37 Hgb 12.10 g/dL (11.27-16.99) 02/14/24 12:37 Hct 37.5 % (36-47) 02/14/24 12:37 MCV 80.5 fl (85-98) L 02/14/24 12:37 MCH 26.0 pg (27-33) L 02/14/24 12:37 MCHC 32.3 g/dL (30-55) 02/14/24 12:37 RDW 14.1 % (12.1-15.1) 02/14/24 12:37 Plt Count 350 10^3/cmm (157-399) 02/14/24 12:37 MPV 10.2 fL (7.4-10.4) 02/14/24 12:37 Neut % (Auto) 80.1 % 02/14/24 12:37 Lymph % (Auto) 11.7 % 02/14/24 12:37 [place] % (Auto) 5.9 % 02/14/24 12:37 Eos % (Auto) 1.3 % 02/14/24 12:37 Baso % (Auto) 0.5 % 02/14/24 12:37 Neut # (Auto) 7.32 10^3/uL (1.8-7.7) 02/14/24 12:37 Lymph # (Auto) 1.1 10^3/uL (0.8-4.8) 02/14/24 12:37 [place] # (Auto) 0.5 10^3/uL (0.2-0.9) 02/14/24 12:37 Eos # (Auto) 0.1 10^3/uL (0.0-0.8) 02/14/24 12:37 Baso # (Auto) 0.1 10^3/uL (0.0-0.1) 02/14/24 12:37 Nucleated RBC % (auto) 0 % 02/14/24 12:37 Nucleated RBCs # 0.0 /100WBC 02/14/24 12:37 Sodium 136 mmol/L (136-145) 02/14/24 12:37 Potassium 4.4 mmol/L (3.5-5.1) 02/14/24 12:37 Chloride 97 mmol/L (98-107) L 02/14/24 12:37 Carbon Dioxide 26 mmol/L (22-29) 02/14/24 12:37 Anion Gap 17.4 (5-19) 02/14/24 12:37 BUN 19 mg/dL (8-23) 02/14/24 12:37 Creatinine 0.8 mg/dL (0.5-0.9) 02/14/24 12:37 GFR Calculation Not Reportable 02/14/24 12:37 Glucose 114 mg/dL (65-115) 02/14/24 12:37 Calculated Osmolality 285 mOsm/kg (285-295) 02/14/24 12:37 Calcium 8.6 mg/dL (8.5-10.5) 02/14/24 12:37 Total Bilirubin 0.3 mg/dL (0.15-1.2) 02/14/24 12:37 AST 17 U/L (0-32) 02/14/24 12:37 ALT 16 U/L (0-33) 02/14/24 12:37 Alkaline Phosphatase 99 U/L (35-105) 02/14/24 12:37 Troponin T Baseline 9 ng/L (0-10) 02/14/24 12:37 Troponin T 120 Minute 6.52 ng/L (0-10) 02/14/24 14:30 Delta Troponin T -2.48 ABS# (0-10) L 02/14/24 14:30 Total Protein 6.5 g/dL (6.6-8.7) L 02/14/24 12:37 Albumin 4.3 g/dL (3.5-5.2) 02/14/24 12:37 Globulin 2.2 g/dL (1.3-4.6) 02/14/24 12:37 All radiology interpretation(s) finalized by discharge Discharge Plan Discharge Admit Provider: Jordan Borden Condition: Stable Prescriptions: No Action ezetimibe [Zetia] 10 mg tablet 10 mg PO DAILY multivitamin Tablet 1 tab PO DAILY fluticasone propionate [Flonase Allergy Relief] 50 mcg/actuation spray,suspension 1 spray INTRANASAL DAILY PRN (Reason: ALLERGIES) montelukast 10 mg tablet 10 mg PO DAILY levothyroxine 125 mcg capsule 125 mcg PO DAILY aripiprazole [Abilify] 2 mg tablet 2 mg PO DAILY magnesium oxide [MagOx] 400 mg (241.3 mg magnesium) tablet 400 mg PO DAILY pantoprazole [Protonix] [address] for susp in packet 40 mg PO BID metoclopramide HCl [Reglan] 5 mg tablet 5 mg PO DAILY PRN (Reason: Abdominal Discomfort) sertraline [Zoloft] 50 mg tablet 50 mg PO DAILY ferrous sulfate [Feosol] 325 mg (65 mg iron) tablet 325 mg PO DAILY sucralfate [Carafate] 1 gram tablet 1 g PO BID PRN (Reason: UPSET STOMACH) isosorbide mononitrate 30 mg tablet extended release 24 hr 30 mg PO DAILY Qty: 30 5RF Eliquis 5 mg tablet 5 mg PO BID Qty: 60 11RF nitroglycerin [Nitrostat] 0.4 mg tablet, sublingual 0.4 mg SUBLINGUAL Q5M PRN (Reason: chest pain) Qty: 25 3RF methocarbamol 500 mg tablet 500 mg PO TID PRN (Reason: MUSCLE SPASM) gabapentin 300 mg capsule 600 mg PO QPM lorazepam 1 mg Tablet 0.5 - 1 mg PO TID PRN (Reason: Anxiety) albuterol sulfate 90 mcg/actuation HFA aerosol inhaler 2 puff INHALATION Q6H PRN (Reason: Shortness Of Breath) rizatriptan 5 mg tablet,disintegrating 5 mg PO DAILY PRN (Reason: Migraine Headache) duloxetine 20 mg capsule,delayed release(DR/EC) 20 mg PO DAILY Rx Instructions: ALONG WITH 60MG TO=80MG TOTAL duloxetine 60 mg capsule,delayed release(DR/EC) 60 mg PO DAILY Rx Instructions: ALONG WITH 20MG TO= 80MG TOTAL Denta 5000 Plus 1.1 % cream 1 applic PO DAILY CoQ-10 30 mg Capsule 30 mg PO DAILY Vitamin D3 25 mcg (1,000 unit) Tablet 25 mcg PO DAILY diltiazem HCl 120 mg capsule,extended release 24hr 120 mg PO DAILY hydrocodone-acetaminophen 10-325 mg tablet 1 tab PO Q6H PRN (Reason: Pain) [place] 3 Fish Oil 684-1,200 mg Capsule,Delayed Release(Dr/Ec) 1 cap PO DAILY calcium carb,sqh-I2-vmlrqttaih 315-250-200 mg-unit-mg Tablet 1 tab PO DAILY Coding Level of Care Code ED [employer] for [employer]
[2024-02-14 12:42] LABS: Basophils # 0.1 10^3/uL (0.0-0.1); Basophils % 0.5 %; Eosinophils # 0.1 10^3/uL (0.0-0.8); Eosinophils % 1.3 %; Hematocrit 37.5 % (36-47); Lymphocytes # 1.1 10^3/uL (0.8-4.8); Lymphocytes % 11.7 %; Mean Corpuscular HGB Conc 32.3 g/dL (30-55); Mean Corpuscular Volume 80.5 fl (85-98); Mean Platelet Volume 10.2 fL (7.4-10.4); Monocytes # 0.5 10^3/uL (0.2-0.9); Monocytes % 5.9 %; Neutrophils # 7.32 10^3/uL (1.8-7.7); Neutrophils % 80.1 %; Nucleated Red Blood Cells % 0 %; Platelet Count 350 10^3/cmm (157-399); Red Blood Count 4.66 10^6/uL (3.85-5.65); Red Cell Distribution Width 14.1 % (12.1-15.1); White Blood Count 9.15 10^3/uL (3.29-11.43)
--- NOTE | 2024-02-14 12:42 | ECG_ITS ---
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 Measurements Intervals [place] Rate: 70 P: 64 TN: 209 QRS: -13 QRSD: 86 T: 66 QT: 411 QTc: 445 Interpretive Statements SINUS RHYTHM LOW QRS VOLTAGE IN EXTREMITY LEADS [QRS DEFLECTION < 0.5 mV IN LIMB LEADS] Poor R wave progression Compared to ECG 02/14/2024 11:58:14 No significant changes Electronically Signed On 02-14-2024 19:59:46 CDT by Brynn Vergara M.D. [email or web address]/[id number]
[2024-02-14] MEDS: nitroglycerin drip 50 MG/250 ML PREMIX IV (12:53)
--- NOTE | 2024-02-14 12:55 | PC.NURSE ---
Patient presented to the ER via EMS with nitro paste on her chest. Before starting the patient on a nitro drip I removed the nitro paste.
[2024-02-14 13:04] LABS: Alanine Aminotransferase 16 U/L (0-33); Albumin Level 4.3 g/dL (3.5-5.2); Alkaline Phosphatase 99 U/L (35-105); Anion Gap 17.4 (5-19); Aspartate Amino Transferase 17 U/L (0-32); Blood Urea Nitrogen 19 mg/dL (8-23); Calcium 8.6 mg/dL (8.5-10.5); Carbon Dioxide 26 mmol/L (22-29); Chloride 97 mmol/L (98-107); Creatinine Clr Calc Pharmacy 81.3064; Globulin 2.2 g/dL (1.3-4.6); Glucose 114 mg/dL (65-115); Osmolality Calculated 285 mOsm/kg (285-295); Potassium 4.4 mmol/L (3.5-5.1); Sodium 136 mmol/L (136-145); Total Bilirubin 0.3 mg/dL (0.15-1.2); Total Protein 6.5 g/dL (6.6-8.7)
[2024-02-14 13:05] LABS: Troponin(5th) Baseline 9 ng/L (0-10)
[2024-02-14 15:11] LABS: Troponin 5 2HR 6.52 ng/L (0-10); Troponin 5 2HR Delta -2.48 ABS# (0-10)
--- NOTE | 2024-02-14 15:44 | P.HP_ITS ---
Providers/Chief Complaint 2 Admitting Physician: Jordan Borden MD Primary Care Provider: Lorena Jackson MD Chief Complaint: CHEST PAIN History of Present Illness Maida Shelton is a 73 year old female with a past medical history of COPD, atrial flutter on Eliquis, type 2 diabetes mellitus, who presents to [facility] for complaints of chest pain. Patient tells me that this morning she had severe substernal chest pain, it was like something squeezing on her chest she tells me, radiating up her neck, associate with diaphoresis, shortness of breath. In the emergency room she continued to have chest pain, was placed on a nitroglycerin drip, initial EKG and no acute ST-T wave changes, baseline troponin 9, he had a stress test which was completed on January 19, which showed ischemia in the distribution of the left circumflex/right coronary artery hospitalist team was called for admission, she denies smoking, denies drug use, no prior history of cardiac stenting, no prior history of angiography Review of Systems 2 Card: Reports: chest pain Resp: Reports: dyspnea Medications/Allergies Home Medications Medication Instructions Recorded Confirmed Last Taken Type ezetimibe 10 mg tablet (Zetia) 10 mg PO DAILY 11/16/19 02/14/24 11/09/21 History fluticasone propionate 50 1 spray intranasal DAILY PRN 11/16/19 02/14/24 Unknown History mcg/actuation nasal ALLERGIES spray,suspension (Flonase Allergy Relief) levothyroxine 125 mcg capsule 125 mcg PO DAILY 11/16/19 02/14/24 02/14/24 History montelukast 10 mg tablet 10 mg PO DAILY 11/16/19 02/14/24 02/14/24 History multivitamin 1 tab PO DAILY 11/16/19 02/14/24 02/13/24 History calcium carb,cit 315 mg-vitamin D3 1 tab PO DAILY 11/10/21 02/14/24 02/13/24 History 250 unit-phytosterols 200 mg tablet hydrocodone 10 mg-acetaminophen 1 tab PO Q6H PRN Pain 11/10/21 02/14/24 Unknown History 325 mg tablet omega-3 fatty acids-fish oil 684 1 cap PO DAILY 11/10/21 02/14/24 02/13/24 History mg-1,200 mg capsule,delayed release aripiprazole 2 mg tablet (Abilify) 2 mg PO DAILY 06/05/22 02/14/24 02/14/24 History magnesium oxide 400 mg (241.3 mg 400 mg PO DAILY 06/05/22 02/14/24 02/13/24 History magnesium) tablet (MagOx) apixaban 5 mg tablet (Eliquis) 5 mg PO BID #60 tabs 05/14/23 02/14/24 02/14/24 Rx ferrous sulfate 325 mg (65 mg 325 mg PO DAILY 06/04/23 02/14/24 02/13/24 History iron) tablet (Feosol) metoclopramide HCl 5 mg tablet 5 mg PO DAILY PRN Abdominal 06/04/23 02/14/24 Unknown History (Reglan) Discomfort pantoprazole 40 mg granules 40 mg PO BID 06/04/23 02/14/24 02/14/24 History delayed-release for susp in packet (Protonix) sertraline 50 mg tablet (Zoloft) 50 mg PO DAILY 06/04/23 02/14/24 02/14/24 History sucralfate 1 gram tablet (Carafate) 1 g PO BID PRN UPSET STOMACH 06/04/23 02/14/24 Unknown History nitroglycerin 0.4 mg sublingual 0.4 mg sublingual Q5M PRN chest 12/17/23 02/14/24 Unknown Rx tablet (Nitrostat) pain #25 tabs isosorbide mononitrate 30 mg 30 mg PO DAILY #30 tabs 02/05/24 02/14/24 Unknown Rx tablet,extended release 24 hr albuterol sulfate 90 mcg/actuation 2 puff inhalation Q6H PRN 02/14/24 02/14/24 Unknown History aerosol inhaler Shortness Of Breath cholecalciferol (vitamin D3) 25 25 mcg PO DAILY 02/14/24 02/14/24 02/13/24 History mcg (1,000 unit) tablet (Vitamin D3) coenzyme Q10 30 mg capsule 30 mg PO DAILY 02/14/24 02/14/24 02/13/24 History diltiazem HCl 120 mg 120 mg PO DAILY 02/14/24 02/14/24 02/14/24 History capsule,extended release 24 hr duloxetine 20 mg capsule,delayed 20 mg PO DAILY 02/14/24 02/14/24 02/14/24 History release duloxetine 60 mg capsule,delayed 60 mg PO DAILY 02/14/24 02/14/24 02/14/24 History release fluoride (sodium) 1.1 % dental 1 applic PO DAILY 02/14/24 02/14/24 Unknown History cream (Denta 5000 Plus) gabapentin 300 mg capsule 600 mg PO QPM 02/14/24 02/14/24 02/13/24 History lorazepam 1 mg tablet 0.5 - 1 mg PO TID PRN Anxiety 02/14/24 02/14/24 Unknown History methocarbamol 500 mg tablet 500 mg PO TID PRN MUSCLE SPASM 02/14/24 02/14/24 Unknown History rizatriptan 5 mg disintegrating 5 mg PO DAILY PRN Migraine Headache 02/14/24 02/14/24 Unknown History tablet Allergies Allergy/AdvReac Type Severity Reaction Status Date / Time Sulfa (Sulfonamide Allergy Unknown Unknown Verified 02/05/24 14:24 Antibiotics) PFSH Acute 2 PFSH: Medical History Hypothyroidism Chronic back pain Depression with anxiety GERD (gastroesophageal reflux disease) IBS (irritable bowel syndrome) COPD (chronic obstructive pulmonary disease) Diabetes mellitus History of TIA (transient ischemic attack) Fibromyalgia History of breast cancer HTN (hypertension) Atrial flutter Hypercholesterolemia Surgical History S/P knee replacement Bilateral S/P cholecystectomy S/P hernia repair S/P hysterectomy S/P mastectomy S/P tubal ligation S/P tonsillectomy S/P cataract extraction History of colonoscopy History of bilateral mastectomy 1988 History of tonsillectomy S/P TRAM (transverse rectus abdominis muscle) flap breast reconstruction 1989 History of sleeve gastrectomy Family History Mother Bleeding disorder CAD (coronary artery disease), Onset Age: 70 Family/Other Cancer Diabetes Brother Diabetes Daughter Lung disease Daughter Lung disease Father Stroke Other Heart disease Denies family history of Clotting disorder Dementia Chronic kidney disease (CKD) Suicide Anesthesia complication Social History Smoking and tobacco/nicotine status: unknown if used tobacco/nicotine Alcohol intake: never Substance/Drug Use: never Vitals/I&O/Wt Last Vital Signs Temp 98.4 F 02/14/24 11:53 Pulse 77 02/14/24 11:53 Resp 18 02/14/24 11:53 BP 145/85 02/14/24 14:10 Pulse Ox 97 02/14/24 14:10 O2 Del Method Room Air 02/14/24 11:53 Weight last 48 hrs Weight 110.677 kg Physical Exam 2 Const: COMMON NORMALS: no acute distress and patient oriented x3 HENMT: COMMON NORMALS: normocephalic HEAD & SCALP: normocephalic Eye: COMMON NORMALS: Equal, round and reactive pupils present and EOMs intact bilaterally Neck/C-Spine: COMMON NORMALS: no JVD Lymph: LYMPHATIC: no lymphadenopathy noted Resp: COMMON NORMALS: normal respiratory effort, No retractions, No use of accessory muscles and clear to auscultation bilaterally AUSCULTATION: clear to auscultation bilaterally Cardio: COMMON NORMALS: regular rate, regular rhythm, S1 normal heart sound present and S2 normal heart sound present RATE: regular rate RHYTHM: r egular rhythm HEART SOUNDS: S1 normal heart sound present and S2 normal heart sound present GI: COMMON NORMALS: Normal to inspection, nondistended, normoactive bowel sounds present, Soft to palpation and non-tender Extremity: COMMON NORMALS: no calf tenderness and no pedal edema Neuro: COMMON NORMALS: patient oriented x3, CN's II-XII intact bilaterally and moves all extremities Psych: COMMON NORMALS: mental status grossly normal Data 02/14/24 12:37 02/14/24 12:37 A&P Assessment and plan (1) Chest pain: (2) HTN (hypertension): Qualifiers: Hypertension type: primary hypertension Qualified Code(s): I10 - Essential (primary) hypertension (3) Atrial flutter: Qualifiers: Atrial flutter type: atypical Qualified Code(s): I48.4 - Atypical atrial flutter (4) Hypercholesterolemia: Plan Chest pain ?IMPRESSIONS 1. Myocardial perfusion imaging revealing small to moderate area of reversible defect in the apical inferior, apical lateral and mid inferolateral segments suggesting ischemia in the distribution of the left circumflex artery/right coronary artery. 2. Normal LV ejection fraction of 71%. 3. LV wall motion analysis revealing no gross wall motion abnormalities. 4. Normal LV volume No similar previous studies are available for comparison ? Plan ? Patient is on Eliquis, will hold for now, switch to heparin drip ? Continue nitroglycerin drip, -Has received 325 of aspirin, statin ? Serial EKGs consult once, telemetry monitoring ? Monitor for continued chest pain -Cardiology has been consulted by emergency room ? Will keep n.p.o. ? Heparin drip for DVT prophylaxis ? Full code Attestations 2 Medical Necessity Statement*: Patient requires hospitalization, inpatient, greater than 2 midnights for chest pain Coding Level of Care Code Acute Code for Chg Fwd Diagnoses Chest pain R07.9 Primary hypertension I10 Hypertension type: primary hypertension Atypical atrial flutter I48.4 Atrial flutter type: atypical Hypercholesterolemia E78.00
[2024-02-14 16:19] LABS: INR 1.05 (0.8-1.2)
[2024-02-14 16:39] LABS: NT Pro B Type Natriuretic Pept 67 pg/mL (0-125)
[2024-02-14] MEDS: pantoprazole DR 40 mg Tablet PO (17:27)
[2024-02-14] MEDS: gabapentin 300 mg Capsule 600 MG PO (17:27)
[2024-02-14] MEDS: sucralfate 1 gm Tablet PO (17:27)
[2024-02-14] MEDS: heparin drip 25,000 UNIT/500 ML PREMIX 31 UNIT IV (17:39)
[2024-02-14 18:00] LABS: Chol HDL Ratio 2.18 mg/dL (0.0-4.40); Cholesterol 190 mg/dL (0-200); HDL Cholesterol 87 mg/dL (60-100); LDL Cholesterol Calculated 81 mg/dL (50-129); LDL HDL Ratio 0.93 RATIO (0.00-3.22); Thyroid Stimulating Hormone 1.97 uIU/mL (0.27-4.20); Triglycerides 110 mg/dL (0-150)
--- NOTE | 2024-02-14 18:05 | ECG_ITS ---
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 Measurements Intervals [place] Rate: 67 P: 59 SD: 208 QRS: -6 QRSD: 87 T: 66 QT: 412 QTc: 435 Interpretive Statements SINUS RHYTHM LOW QRS VOLTAGE [QRS DEFLECTION < 0.5/1.0 mV IN LIMB/CHEST LEADS] Compared to ECG 02/14/2024 12:42:49 No significant changes Electronically Signed On 02-14-2024 20:00:46 CDT by Brynn Vergara M.D. [email or web address].[employer]/store/[id number]
[2024-02-14 18:21] LABS: Add Urine Microscopic? NO; Charge for UA Resulting for Rev
[2024-02-14 18:25] LABS: Bilirubin Urine Neg (Negative); Blood Urine Neg (Negative); Glucose Urine UA Norm (Normal); Ketones Urine Negative (Negative); Leukocyte Esterase Urine Negative (Negative); Nitrate Urine Negative (Negative); Protein Urine Neg (Negative); Urine Appearance Clear (CLEAR); Urine Color Yellow (Yellow); Urobilinogen Urine Norm (Negative); pH Urine 8 (5-7)
[2024-02-14] MEDS: HYDROcodone-acetaminophen 10-325 mg Tablet 1 TAB PO (18:37)
--- NOTE | 2024-02-14 18:56 | P.CONIM_ITS ---
Providers/Reason For Consult 2 Consulting Physician/Specialty*: Cardiology Reason for Consult*: Chest pain,, recent abnormal stress test Requesting Physician: Attending Physician: Jordan Borden MD Primary Care Provider: Lorena Jackson MD History of Present Illness History of Present Illness Maida Shelton is a 73 year old female presented with recurrent atypical chest pain. She recently had out patient nuclear stress test which was abnormal and currently she is awaiting out patient cardiac cath. Cheat pain today was atypical, and her EKGs and first Trop was normal. Currently she is asymptomatic at rest. Clinically no heart failure. Review of Systems 2 Narrative: Detailed 10 point systemic review unremarkable, except for as mentioned above in HPI Medications/Allergies Home Medications Medication Instructions Recorded Confirmed Last Taken Type ezetimibe 10 mg tablet (Zetia) 10 mg PO DAILY 11/16/19 02/14/24 11/09/21 History fluticasone propionate 50 1 spray intranasal DAILY PRN 11/16/19 02/14/24 Unknown History mcg/actuation nasal ALLERGIES spray,suspension (Flonase Allergy Relief) levothyroxine 125 mcg capsule 125 mcg PO DAILY 11/16/19 02/14/24 02/14/24 History montelukast 10 mg tablet 10 mg PO DAILY 11/16/19 02/14/24 02/14/24 History multivitamin 1 tab PO DAILY 11/16/19 02/14/24 02/13/24 History calcium carb,cit 315 mg-vitamin D3 1 tab PO DAILY 11/10/21 02/14/24 02/13/24 History 250 unit-phytosterols 200 mg tablet hydrocodone 10 mg-acetaminophen 1 tab PO Q6H PRN Pain 11/10/21 02/14/24 Unknown History 325 mg tablet omega-3 fatty acids-fish oil 684 1 cap PO DAILY 11/10/21 02/14/24 02/13/24 History mg-1,200 mg capsule,delayed release aripiprazole 2 mg tablet (Abilify) 2 mg PO DAILY 06/05/22 02/14/24 02/14/24 History magnesium oxide 400 mg (241.3 mg 400 mg PO DAILY 06/05/22 02/14/24 02/13/24 History magnesium) tablet (MagOx) apixaban 5 mg tablet (Eliquis) 5 mg PO BID #60 tabs 05/14/23 02/14/24 02/14/24 Rx ferrous sulfate 325 mg (65 mg 325 mg PO DAILY 06/04/23 02/14/24 02/13/24 History iron) tablet (Feosol) metoclopramide HCl 5 mg tablet 5 mg PO DAILY PRN Abdominal 06/04/23 02/14/24 Unknown History (Reglan) Discomfort pantoprazole 40 mg granules 40 mg PO BID 06/04/23 02/14/24 02/14/24 History delayed-release for susp in packet (Protonix) sertraline 50 mg tablet (Zoloft) 50 mg PO DAILY 06/04/23 02/14/24 02/14/24 History sucralfate 1 gram tablet (Carafate) 1 g PO BID PRN UPSET STOMACH 06/04/23 02/14/24 Unknown History nitroglycerin 0.4 mg sublingual 0.4 mg sublingual Q5M PRN chest 12/17/23 02/14/24 Unknown Rx tablet (Nitrostat) pain #25 tabs isosorbide mononitrate 30 mg 30 mg PO DAILY #30 tabs 02/05/24 02/14/24 Unknown Rx tablet,extended release 24 hr albuterol sulfate 90 mcg/actuation 2 puff inhalation Q6H PRN 02/14/24 02/14/24 Unknown History aerosol inhaler Shortness Of Breath cholecalciferol (vitamin D3) 25 25 mcg PO DAILY 02/14/24 02/14/24 02/13/24 History mcg (1,000 unit) tablet (Vitamin D3) coenzyme Q10 30 mg capsule 30 mg PO DAILY 02/14/24 02/14/24 02/13/24 History diltiazem HCl 120 mg 120 mg PO DAILY 02/14/24 02/14/24 02/14/24 History capsule,extended release 24 hr duloxetine 20 mg capsule,delayed 20 mg PO DAILY 02/14/24 02/14/24 02/14/24 History release duloxetine 60 mg capsule,delayed 60 mg PO DAILY 02/14/24 02/14/24 02/14/24 History release fluoride (sodium) 1.1 % dental 1 applic PO DAILY 02/14/24 02/14/24 Unknown History cream (Denta 5000 Plus) gabapentin 300 mg capsule 600 mg PO QPM 02/14/24 02/14/24 02/13/24 History lorazepam 1 mg tablet 0.5 - 1 mg PO TID PRN Anxiety 02/14/24 02/14/24 Unknown History methocarbamol 500 mg tablet 500 mg PO TID PRN MUSCLE SPASM 02/14/24 02/14/24 Unknown History rizatriptan 5 mg disintegrating 5 mg PO DAILY PRN Migraine Headache 02/14/24 02/14/24 Unknown History tablet Allergies Allergy/AdvReac Type Severity Reaction Status Date / Time Sulfa (Sulfonamide Allergy Unknown Unknown Verified 02/05/24 14:24 Antibiotics) Current Medications Generic Name Dose Route Start Last Admin Trade Name Freq PRN Reason Stop Dose Admin Hydrocodone Bitart/Acetaminophen 1 tab 02/14/24 18:08 02/14/24 18:37 Hydrocodone-Acetaminophen 10-325 Mg Tablet PO 1 tab Q8H PRN Administration MODERATE PAIN Gabapentin 600 mg 02/14/24 18:00 02/14/24 17:27 Gabapentin 300 Mg Capsule PO 600 mg QPM GENESIS Administration Nitroglycerin/Dextrose 50 mg in 250 mls @ 0 mls/hr 02/14/24 12:45 02/14/24 12:53 Nitroglycerin Drip IV 5 mcg/min .Q0M GENESIS 1.5 mls/hr Administration Protocol Per Protocol Heparin Sodium/Sodium Chloride 25,000 unit in 500 mls @ 0 mls/hr 02/14/24 17:02 02/14/24 17:39 Heparin Drip IV 14 unit/kg/hr .Q0M GENESIS 31 mls/hr Administration Protocol Per Protocol Pantoprazole Sodium 40 mg 02/14/24 18:00 02/14/24 17:[address] 40 Mg Tablet PO 40 mg BID GENESIS Administration Sucralfate 1 gm 02/14/24 17:02 02/14/24 17:27 Sucralfate 1 Gm Tablet PO 1 gm BID PRN Administration UPSET STOMACH PFSH Acute 2 PFSH: Medical History Hypothyroidism Chronic back pain Depression with anxiety GERD (gastroesophageal reflux disease) IBS (irritable bowel syndrome) COPD (chronic obstructive pulmonary disease) Diabetes mellitus History of TIA (transient ischemic attack) Fibromyalgia History of breast cancer HTN (hypertension) Atrial flutter Hypercholesterolemia Surgical History S/P knee replacement Bilateral S/P cholecystectomy S/P hernia repair S/P hysterectomy S/P mastectomy S/P tubal ligation S/P tonsillectomy S/P cataract extraction History of colonoscopy History of bilateral mastectomy 1988 History of tonsillectomy S/P TRAM (transverse rectus abdominis muscle) flap breast reconstruction 1989 History of sleeve gastrectomy Family History Mother Bleeding disorder CAD (coronary artery disease), Onset Age: 70 Family/Other Cancer Diabetes Brother Diabetes Daughter Lung disease Daughter Lung disease Father Stroke Other Heart disease Denies family history of Clotting disorder Dementia Chronic kidney disease (CKD) Suicide Anesthesia complication Social History Smoking and tobacco/nicotine status: unknown if used tobacco/nicotine Alcohol intake: never Substance/Drug Use: never Vitals/I&O/Wt Last Vital Signs Temp 98.4 F 02/14/24 11:53 Pulse 75 02/14/24 18:00 Resp 17 02/14/24 18:00 BP 158/90 02/14/24 18:00 Pulse Ox 94 02/14/24 18:00 O2 Del Method Room Air 02/14/24 17:35 Weight last 48 hrs Weight 242 lb Weight 244 lb Physical Exam 2 Narrative: Comfortable Const: COMMON NORMALS: no acute distress, patient oriented x3 and alert G ENERAL APPEARANCE: cooperative and comfortable HENMT: COMMON NORMALS: normocephalic HEAD & SCALP: normocephalic Neck/C-Spine: COMMON NORMALS: full ROM, supple and no JVD Resp: COMMON NORMALS: normal respiratory effort and clear to auscultation bilaterally AUSCULTATION: clear to auscultation bilaterally Cardio: COMMON NORMALS: no JVD, regular rate, regular rhythm, S1 normal heart sound present and S2 normal heart sound present RATE: regular rate RHYTHM: regular rhythm HEART SOUNDS: S1 normal heart sound present and S2 normal heart sound present GI: COMMON NORMALS: Soft to palpation AUSCULTATION: Yes normoactive bowel sounds PALPATION: Yes Soft to palpation Extremity: OTHER: Normal Neuro: COMMON NORMALS: patient oriented x3 SENSORIUM/ORIENTATION: Yes alert OTHER: Grossly intact Skin: OTHER: warm and dry Data 02/14/24 12:37 02/14/24 12:37 A&P Assessment and plan (1) Chest pain: (2) Abnormal cardiovascular stress test: Plan 73 yrs old female with atypical chest pain Recent nuclear stress test was abnormal Clinically overall stable CVS status. No CHF So far ruled out for ACS/NSTEMI. Rec: Continue current treatment,, If 2nd set of Trop negative, for out pt cath next week. If Trop positive then cath during this admission. Coding Level of Care Code 22730 Diagnoses Chest pain R07.9 Abnormal cardiovascular stress test R94.39
[2024-02-14 19:02] LABS: Troponin 5 6HR 9.41 ng/L (0-10); Troponin 5 6HR Delta 0.41 ng/L (0-12)
[2024-02-14 20:28] LABS: Estmated Average Glucose 143; Hemoglobin A1C 6.6 % (4.0-6.0)
[2024-02-14] MEDS: atorvastatin 40 mg Tablet 80 MG PO (20:48)
[2024-02-15] VITALS (51 sets, daily range): BP systolic 123–173; BP diastolic 66–101; PULSE 64–88; RESP 12–27; TEMP 36.5–36.9; O2SAT 92–96
[2024-02-15 01:15] LABS: Partial Thromboplastin Time 136.2 SECONDS (23.9-36.7)
--- NOTE | 2024-02-15 02:24 | ECG_ITS ---
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 Measurements Intervals [place] Rate: 63 P: 151 IA: 218 QRS: -11 QRSD: 82 T: 142 QT: 407 QTc: 419 Interpretive Statements Sinus rhythm LOW QRS VOLTAGE [QRS DEFLECTION < 0.5/1.0 mV IN LIMB/CHEST LEADS] SEPTAL MYOCARDIAL INFARCTION , OF INDETERMINATE AGE [40+ ms Q WAVE IN V1/V2] Compared to ECG 02/14/2024 17:15:03 ST changes in the septal leads are more prominent Electronically Signed On 02-15-2024 17:04:59 CDT by Shady Jackson M.D. [email or web address]
[2024-02-15] MEDS: HYDROcodone-acetaminophen 10-325 mg Tablet 1 TAB PO ×2 (02:32→11:42)
--- NOTE | 2024-02-15 02:41 | PC.NURSE ---
Addendum entered by Angie Pettit RN 02/15/24 02:43: Upon turning up nitro the chest pain subsided. Original Note: patient got back from a trip to the bathroom and hit her call light reporting chest pain, this nurse turned up her nitro by 10 mcgs, performed an EKG, and informed MD on the episode of chest pain, no new orders at this time.
[2024-02-15 06:22] LABS: Basophils # 0.1 10^3/uL (0.0-0.1); Basophils % 1.4 %; Eosinophils # 0.2 10^3/uL (0.0-0.8); Hematocrit 35.7 % (36-47); Lymphocytes # 1.1 10^3/uL (0.8-4.8); Lymphocytes % 19.7 %; Mean Corpuscular HGB Conc 31.4 g/dL (30-55); Mean Corpuscular Hemoglobin 25.4 pg (27-33); Mean Platelet Volume 10.3 fL (7.4-10.4); Monocytes # 0.4 10^3/uL (0.2-0.9); Monocytes % 7.3 %; Neutrophils % 67.3 %; Nucleated Red Blood Cells % 0 %; Platelet Count 303 10^3/cmm (157-399); Red Blood Count 4.41 10^6/uL (3.85-5.65); Red Cell Distribution Width 14.2 % (12.1-15.1); White Blood Count 5.79 10^3/uL (3.29-11.43)
[2024-02-15 06:44] LABS: Anion Gap 16.7 (5-19); Blood Urea Nitrogen 16 mg/dL (8-23); Calcium 8.7 mg/dL (8.5-10.5); Carbon Dioxide 24 mmol/L (22-29); Chloride 102 mmol/L (98-107); Creatinine Clr Calc Pharmacy 81.6758; Glucose 108 mg/dL (65-115); Osmolality Calculated 288 mOsm/kg (285-295); Potassium 4.7 mmol/L (3.5-5.1); Sodium 138 mmol/L (136-145)
[2024-02-15 06:45] LABS: Partial Thromboplastin Time 108.7 SECONDS (23.9-36.7)
[2024-02-15] MEDS: heparin drip 25,000 UNIT/500 ML PREMIX 19 UNIT IV (07:24)
[2024-02-15] MEDS: acetaminophen 325 mg Tablet 650 MG PO (07:25)
[2024-02-15] MEDS: lidocaine 2% viscous 15 ML, aluminum-mag hydrox-simethicon 30 ML, sucralfate oral liq 1 GM PO (11:39)
[2024-02-15] MEDS: magnesium oxide 400 mg tablet PO (11:41)
[2024-02-15] MEDS: levothyroxine 125 mcg Tablet PO (11:41)
[2024-02-15] MEDS: ezetimibe 10 mg Tablet PO (11:41)
[2024-02-15] MEDS: duloxetine 20 mg Capsule PO (11:41)
[2024-02-15] MEDS: ARIPiprazole 2 mg Tablet PO (11:41)
[2024-02-15] MEDS: duloxetine 60 mg Capsule PO (11:41)
[2024-02-15] MEDS: aspirin 81 mg EC Tablet PO (11:42)
[2024-02-15] MEDS: pantoprazole DR 40 mg Tablet PO ×2 (11:42→18:56)
[2024-02-15] MEDS: dilTIAZem ER (24HR) 120 mg Capsule PO (11:42)
[2024-02-15 13:48] LABS: Partial Thromboplastin Time 55.9 SECONDS (23.9-36.7)
--- NOTE | 2024-02-15 15:38 | P.PN_ITS ---
Subjective 2 Subjective: Patient was seen this morning, she is currently on 25 of nitro, due to persistent chest discomfort, reports anterior chest discomfort, lasting less than a minute, she tells me that it is quite severe, no GERD like symptoms, no shortness of breath, she tells me that it is less intense compared to yesterday Vitals/I&O/Wt Last Vital Signs Temp 98.0 F 02/15/24 12:00 Pulse 75 02/15/24 12:00 Resp 21 H 02/15/24 12:00 BP 148/90 02/15/24 12:00 Pulse Ox 93 02/15/24 12:00 O2 Del Method Room Air 02/15/24 12:00 02/15/24 02/15/24 02/15/24 06:59 14:59 22:59 Intake Total 270.25 / 520.55 456.467 / 456.467 Balance 270.25 / 520.55 456.467 / 456.467 Weight last 48 hrs Weight 111.584 kg Weight 109.769 kg Weight 110.677 kg Physical Exam 2 Const: COMMON NORMALS: no acute distress and patient oriented x3 Resp: COMMON NORMALS: normal respiratory effort, No retractions, No use of accessory muscles and clear to auscultation bilaterally AUSCULTATION: clear to auscultation bilaterally Cardio: COMMON NORMALS: regular rate, regular rhythm, S1 normal heart sound present and S2 normal heart sound present RATE: regular rate RHYTHM: r egular rhythm HEART SOUNDS: S1 normal heart sound present and S2 normal heart sound present GI: COMMON NORMALS: Normal to inspection, nondistended, normoactive bowel sounds present and non-tender Extremity: COMMON NORMALS: no pedal edema Neuro: COMMON NORMALS: patient oriented x3 Psych: COMMON NORMALS: mental status grossly normal Data 02/15/24 06:01 02/15/24 06:01 A&P Assessment and plan (1) Chest pain: (2) HTN (hypertension): Qualifiers: Hypertension type: primary hypertension Qualified Code(s): I10 - Essential (primary) hypertension (3) Atrial flutter: Qualifiers: Atrial flutter type: atypical Qualified Code(s): I48.4 - Atypical atrial flutter (4) Hypercholesterolemia: Plan Chest pain ?IMPRESSIONS 1. Myocardial perfusion imaging revealing small to moderate area of reversible defect in the apical inferior, apical lateral and mid inferolateral segments suggesting ischemia in the distribution of the left circumflex artery/right coronary artery. 2. Normal LV ejection fraction of 71%. 3. LV wall motion analysis revealing no gross wall motion abnormalities. 4. Normal LV volume No similar previous studies are available for comparison ? Plan ? Patient is on Eliquis, will hold for now, switch to heparin drip ? Continue nitroglycerin drip, -Has received 325 of aspirin, statin ? Serial EKGs consult once, telemetry monitoring ? Monitor for continued chest pain -Cardiology has been consulted by emergency room ? Will keep n.p.o. ? Heparin drip for DVT prophylaxis ? Full code Due to persistent chest pain, spoke to cardiology, will continue to monitor, keep n.p.o., had a GI cocktail, titrate down nitroglycerin drip while monitoring pain, hydrocodone given for pain Attestations 2 Medical Necessity Statement*: Patient requires hospitalization for chest pain Diagnoses Chest pain R07.9 Primary hypertension I10 Hypertension type: primary hypertension Atypical atrial flutter I48.4 Atrial flutter type: atypical Hypercholesterolemia E78.00
--- NOTE | 2024-02-15 16:08 | PC.NURSE ---
sr account executive orders received verbal orders read back to continue pt's nitro drip at 5 mcg/min and heparin drip drip until 7 am. C in the morning at 10 am. notified house decorator on this plan.
[2024-02-15 18:36] LABS: Bacteria Urine 1+ /hpf; Bilirubin Urine Neg (Negative); Blood Urine Neg (Negative); Glucose Urine UA Norm (Normal); Ketones Urine Negative (Negative); Leukocyte Esterase Urine Trace (Negative); Nitrate Urine Negative (Negative); Protein Urine Neg (Negative); RBC Urine 0-4 /hpf (0-2); Squamous Epithelial Cell Urine 0-4 /hpf (0-5); Urine Appearance Clear (CLEAR); Urine Color Yellow (Yellow); Urobilinogen Urine Neg (Negative); pH Urine 6.5 (5-7)
--- NOTE | 2024-02-15 18:52 | P.PN_ITS ---
Subjective 2 Subjective: I saw patient this morning. Clinically she is stable from cardiovascular point of view. Ongoing intermittent angina pain. Her vitals are stable. She has been ruled out for acute coronary syndrome/NSTEMI. However ongoing symptoms of chest pain at rest. EKG this morning showed more ST changes. Currently she is chest pain-free at rest. Vitals/I&O/Wt Last Vital Signs Temp 97.7 F 02/15/24 16:00 Pulse 74 02/15/24 16:00 Resp 18 02/15/24 16:00 BP 156/97 02/15/24 16:00 Pulse Ox 93 02/15/24 16:00 O2 Del Method Room Air 02/15/24 16:00 02/15/24 02/15/24 02/15/24 06:59 14:59 22:59 Intake Total 270.25 / 520.55 456.467 / 456.467 360 / 816.467 Output Total 200 / 200 Balance 270.25 / 520.55 456.467 / 456.467 160 / 616.467 Weight last 48 hrs Weight 246 lb Weight 242 lb Weight 244 lb Physical Exam 2 Narrative: Patient is laying comfortably on her bed. She is not in any acute respiratory distress. Her vitals are stable. HENMT: OTHER: Normal and unremarkable. Neck/C-Spine: OTHER: Normal. No JVD. Resp: OTHER: Good air entry bilaterally on chest auscultation. Cardio: OTHER: Normal first and second heart sounds. There are no added sound. GI: OTHER: Abdomen is soft nontender. Bowel sounds audible. Extremity: OTHER: Unremarkable. No pedal edema. Skin: OTHER: Skin warm and dry. Data 02/15/24 06:01 02/15/24 06:01 A&P Assessment and plan (1) Chest pain due to coronary artery disease: (2) Unstable angina: Plan 72-year-old female patient with clinically 1. Unstable angina. She has been ruled out for NSTEMI with the negative cardiac troponin enzymes. 2. Recent nuclear cardiac stress test positive for ischemia. 3. Clinically no heart failure. Plan: Considering her ongoing symptoms of unstable angina even at rest, I discussed with her primary plasterer foreman Dr. Vergara, and we have a plan to do cardiac cath during this admission. Patient has taken her last dose of Eliquis yesterday morning. She has been on heparin since. Plan to do a cardiac cath tomorrow morning. At that time she will be 48 hours of Eliquis. Discussed with the patient in detail about cardiac cath procedure, possible angioplasty. Discussed risk and benefits and alternatives. Patient agreed for the procedure. Attestations 2 Medical Necessity Statement*: Unstable angina On IV nitro and heparin Coding Level of Care Code 46588 Diagnoses Chest pain due to coronary artery disease I25.119 Unstable angina I20.0
[2024-02-15] MEDS: gabapentin 300 mg Capsule 600 MG PO (18:56)
[2024-02-15 20:17] LABS: Partial Thromboplastin Time 43.3 SECONDS (23.9-36.7)
[2024-02-15] MEDS: atorvastatin 40 mg Tablet 80 MG PO (21:27)
[2024-02-16] VITALS (19 sets, daily range): BP systolic 124–161; BP diastolic 74–96; PULSE 63–84; RESP 12–27; TEMP 36.5–36.8; O2SAT 91–97
[2024-02-16] MEDS: HYDROcodone-acetaminophen 10-325 mg Tablet 1 TAB PO ×2 (00:21→08:37)
[2024-02-16 04:29] LABS: Partial Thromboplastin Time 57.2 SECONDS (23.9-36.7)
[2024-02-16 04:31] LABS: Anion Gap 16.3 (5-19); Blood Urea Nitrogen 14 mg/dL (8-23); Carbon Dioxide 27 mmol/L (22-29); Chloride 100 mmol/L (98-107); Creatinine Clr Calc Pharmacy 81.6758; Glucose 121 mg/dL (65-115); Magnesium 1.8 mg/dL (1.7-2.3); Osmolality Calculated 290 mOsm/kg (285-295); Potassium 4.3 mmol/L (3.5-5.1); Sodium 139 mmol/L (136-145)
[2024-02-16 05:17] LABS: Basophils # 0.1 10^3/uL (0.0-0.1); Basophils % 0.9 %; Eosinophils # 0.2 10^3/uL (0.0-0.8); Eosinophils % 3.1 %; Hematocrit 36.2 % (36-47); Lymphocytes # 0.9 10^3/uL (0.8-4.8); Lymphocytes % 16.8 %; Mean Corpuscular HGB Conc 31.8 g/dL (30-55); Mean Corpuscular Hemoglobin 25.7 pg (27-33); Mean Platelet Volume 10.2 fL (7.4-10.4); Monocytes # 0.5 10^3/uL (0.2-0.9); Monocytes % 8.8 %; Neutrophils # 3.79 10^3/uL (1.8-7.7); Neutrophils % 69.8 %; Nucleated Red Blood Cells % 0 %; Platelet Count 281 10^3/cmm (157-399); Red Blood Count 4.47 10^6/uL (3.85-5.65); Red Cell Distribution Width 14.3 % (12.1-15.1); White Blood Count 5.43 10^3/uL (3.29-11.43)
--- NOTE | 2024-02-16 09:47 | PC.NURSE ---
to laboratory apparatus glass blower
--- NOTE | 2024-02-16 10:00 | XACV_ITS ---
Exam Room: 2 Ht: 168 cm Wt: 108 kg BSA: 2.30 m2 Gender: Female : 1950 Performing Physician(s): Dr. Jackson Any Known Allergies: Other Exam Priority: Routine Procedure(s): Procedure Description: Diagnostic procedure Procedure Description: Coronary Angiography Diagnostic Cath Status: Urgent Diagnostic Findings * Left main: Normal. * LAD: Minor irregularities. * LCx: Nondominant medium large vessel: Minor irregularities. * RCA: Large size dominant vessel. Mild disease in the midsegment. Minor irregularities. * Conclusion: No significant coronary disease. * Recommendations: Medical management of risk factors. Left Ventriculography Findings: * Left Ventriculogram not performed. Pressures Phase:Rest AO : 101 / 71 ( 86 ) @ 11:09:00 AM 105 / 82 ( 95 ) @ 11:11:00 AM 110 / 82 ( 97 ) @ 11:13:00 AM Clinical Evaluation EBL: 5mL-10mL Procedural Details Procedure Consent Obtained. Pre-Procedure Time Out. Identified patient by full name and date of as verbalized by the patient/guarantor. Does the consent match the physician's order: Yes. Accurate & Complete Informed Consent: Yes. Inpatient/Outpatient History & Physical on Chart: Yes. If H&P is completed, is and addenduem needed: No; If yes, is the addendum complete: N/A. Visualize and Verify Site with Patient/Guarantor: N/A. Relevant Radiology Images available: Yes. The risks, benefits, and alternatives of sedation and/or procedure were discussed by physician. The patient agrees to continue. Pre-op teaching completed and patient verbalized understanding. Procedure started. [facility] Clinical Fraility Score: 3: Managing Well. 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 Chest Pain Symptom Assessment: Typical Angina Symptoms. Correct patient, site and procedure confirmed by cath team. Current diagnosis: NSTEMI. PERRLA. Strong, equal hand field marketer bilaterally. Lungs clear x 5 lobes. IV Site on Arrival: 20 gauge in the right anticubital. IV Site on Arrival: 20 gauge in the left anticubital. IV Fluids: 0.9% NaCl at KVO. 0 mL infused prior to label pinker. Pre Procedural Pulses: bilateral dorsalis pedis was 3+. Pre Procedural Pulses: bilateral posterior tibial was 3+. Pre Procedural Pulses: bilateral radial was 3+. Oxygen started at 2liters/min via nasal canula. right groin was prepped with chloroprep then draped in the usual sterile fashion. right radial was prepped with chloroprep then draped in the usual sterile fashion. Baseline sample Acquired. HR: 68 BPM. Physician arrived. Current Diagnosis : NSTEMI. Physician scrubbed in. Immediate Pre-Procedure Time Out. Correct Patient: Yes; Correct Procedure: Yes; Correct Site: Yes; Correct Patient Position: Yes; Correct Supplies: Yes; Dried Flammable Prep: Yes; Blood Products Available: N/A;. Lidocaine 1% infiltrated to the right radial. Arterial access obtained with micropuncture set. A 5 ku[place]i JL3.5 catheter in over wire. Catheter removed over the exchange wire. A 5 [place] JR4 catheter in over wire. Multiple views taken of left coronary artery. Multiple views taken of right coronary artery. Catheter removed over the exchange wire. Physician scrubbed out. A TR Band was successful obtaining hemostatsis at the Right Radial artery insertion site. Post Procedure: Pulses reassessed and unchanged. PERRLA. Strong, equal hand field marketer bilaterally. No VTE prophylaxis required. Medication's Wasted: Heparin = 4000 units. Medication's Wasted: Other = Fentanyl 50 mcg. Medication's Wasted: Lidocaine 1% = 18 mL. Total IV fluids: 30 mL. Vital chart was stopped. Post-op diagnosis: Normal Coronaries. Complications: None. Estimated blood loss: 5mL-10mL. Responsiveness - Normal response to verbal stimuli; alert and oriented, PERRLA. Airway - Unaffected, no intervention required; spontaneous ventilation. Circulation: W/N/L, pulses unchanged. Nausea/Vomiting: No. Procedure completed. Patient transferred by bed to 1st floor. Access Site Site: Right Radial artery Sheath Size: 6 Fr Hemostasis Method: TR Band Hemostasis Success: Successful Complication Findings: None. Procedure Medications Start: 9:56 AM Stop: 9:56 AM Medication: Versed Amount: 1 mg Route: I.V. Start: 9:56 AM Stop: 9:56 AM Medication: Fentanyl Amount: 50 mcg Route: I.V. Start: 10:05 AM Stop: 10:05 AM Medication: Versed Amount: 1 mg Route: I.V. Start: 10:06 AM Stop: 10:06 AM Medication: Nitrogylcerin Amount: 200 mcg Route: I.A. Start: 10:08 AM Stop: 10:08 AM Medication: Heparin Amount: 2000 units Route: I.V. I, the attending physician, have reviewed and verified all procedure medications. Yes, all medications given per verbal order History/Risk Factors Hypertension: Yes Dyslipidemia: No Peripheral Arterial Disease (PAD): No Myocardial Infarction (MT): No Obesity: No Renal Disease: No Tobacco Use: Never Prior Interventions PCI: No CABG: No Valve Surgery: No Report Signatures Finalized by Shady Jackson MD on 02/16/2024 01:02 PM
--- NOTE | 2024-02-16 10:33 | P.PN_ITS ---
Subjective 2 Subjective: This is a 73-year-old female patient who was admitted with ongoing anginal symptoms in the setting of recent abnormal nuclear cardiac stress test. A cardiac cath this morning revealed no significant coronary disease. Clinically she is stable and asymptomatic post procedure. No complications of the procedure. Currently patient is resting comfortably. Her vitals are stable and cardiovascular exam is unremarkable. Medications: Reviewed: Yes Vitals/I&O/Wt Last Vital Signs Temp 97.8 F 02/16/24 07:59 Pulse 75 02/16/24 09:25 Resp 16 02/16/24 09:25 BP 146/96 02/16/24 07:59 Pulse Ox 95 02/16/24 09:25 O2 Del Method Room Air 02/16/24 09:25 02/15/24 02/16/24 02/16/24 22:59 06:59 14:59 Intake Total 726.35 / 1182.817 20.625 / 1203.442 246.983 / 246.983 Output Total 200 / 200 Balance 526.35 / 982.817 20.625 / 1003.442 246.983 / 246.983 Weight last 48 hrs Weight 239 lb 12.8 oz Weight 246 lb Weight 242 lb Weight 244 lb Physical Exam 2 Const: COMMON NORMALS: no acute distress HENMT: COMMON NORMALS: normocephalic HEAD & SCALP: normocephalic Neck/C-Spine: COMMON NORMALS: no JVD Resp: COMMON NORMALS: percussion normal PERCUSSION: percussion normal Cardio: COMMON NORMALS: no JVD, regular rate, regular rhythm and S1 normal heart sound present RATE: regular rate RHYTHM: regular rhythm HEART SOUNDS: S1 normal heart sound present GI: COMMON NORMALS: Soft to palpation AUSCULTATION: Yes normoactive bowel sounds PALPATION: Yes Soft to palpation Extremity: NARRATIVE EXTREMITY EXAM: Normal lower extremities. No pedal edema. Neuro: OTHER: Grossly intact. Skin: OTHER: Skin warm and dry. Data 02/16/24 03:53 02/16/24 03:53 A&P Assessment and plan (1) Unstable angina: (2) Abnormal cardiovascular stress test: Plan 73-year-old female patient with recent abnormal nuclear stress test for myocardial ischemia. She was admitted with the symptoms of angina. Cardiac cath revealed no significant coronary disease. Currently patient is in sinus rhythm. She does have history of atrial fibrillation in the recent past. Recommend to continue her regular medication including Cardizem and Eliquis. Follow-up in the cardiology clinic in couple of weeks. Attestations 2 Medical Necessity Statement*: Unstable angina On IV heparin and IV nitro Coding Level of Care Code 17991 Diagnoses Unstable angina I20.0 Abnormal cardiovascular stress test R94.39
[2024-02-16] MEDS: ezetimibe 10 mg Tablet PO (10:41)
[2024-02-16] MEDS: duloxetine 20 mg Capsule PO (10:41)
[2024-02-16] MEDS: sucralfate 1 gm Tablet PO (10:41)
[2024-02-16] MEDS: dilTIAZem ER (24HR) 120 mg Capsule PO (10:41)
[2024-02-16] MEDS: aspirin 81 mg EC Tablet PO (10:41)
[2024-02-16] MEDS: magnesium oxide 400 mg tablet PO (10:41)
[2024-02-16] MEDS: ARIPiprazole 2 mg Tablet PO (10:41)
[2024-02-16] MEDS: levothyroxine 125 mcg Tablet PO (10:42)
[2024-02-16] MEDS: cefTRIAXone 1,000 mg SDV 1000 MG IVP (10:42)
[2024-02-16] MEDS: duloxetine 60 mg Capsule PO (10:42)
[2024-02-16] MEDS: pantoprazole DR 40 mg Tablet PO (10:42)
--- NOTE | 2024-02-16 12:28 | PM.DCS ---
Discharge Providers Date of Admission: 02/14/24 15:38 Date of Discharge: February 16, 2024 Attending Provider at Admission: Jordan Borden MD Attending Provider at Discharge: Jordan Borden MD Primary Care Provider: Lorena Jackson MD Diagnoses at Discharge Discharge Diagnosis (1) Unstable angina: Status: Acute (2) Abnormal cardiovascular stress test: Status: Acute Reason for Visit Reason for Visit: CHEST PAIN Hospital Course Hospital Course Maida Shelton is a 73 year old female with a past medical history of COPD, atrial flutter on Eliquis, type 2 diabetes mellitus, who presents to [facility] for complaints of chest pain. Patient tells me that this morning she had severe substernal chest pain, it was like something squeezing on her chest she tells me, radiating up her neck, associate with diaphoresis, shortness of breath. In the emergency room she continued to have chest pain, was placed on a nitroglycerin drip, initial EKG and no acute ST-T wave changes, baseline troponin 9, he had a stress test which was completed on January 19, which showed ischemia in the distribution of the left circumflex/right coronary artery hospitalist team was called for admission, she denies smoking, denies drug use, no prior history of cardiac stenting, no prior history of angiography Patient was admitted to [facility] for chest pain, with recent abnormal stress test, cardiology was consulted medically managed on heparin drip, nitro drip due to persistent chest pain, she underwent cardiac catheterization with no obstructive CAD. Will be discharged home, with close follow-up with primary care provider as outpatient. Potentially patient's chest discomfort could be from her hiatal hernia, acid reflux, she is on Protonix, discussed with her to follow-up with her primary care. In terms of her medications she takes duloxetine and fluoxetine at home, risk of serotonin syndrome and will wean her off fluoxetine. Physical Exam Const: COMMON NORMALS: no acute distress and patient oriented x3 Resp: COMMON NORMALS: normal respiratory effort, No retractions, No use of accessory muscles and clear to auscultation bilaterally AUSCULTATION: clear to auscultation bilaterally Cardio: COMMON NORMALS: regular rate, regular rhythm, S1 normal heart sound present and S2 normal heart sound present RATE: regular rate RHYTHM: regular rhythm HEART SOUNDS: S1 normal heart sound present and S2 normal heart sound present GI: COMMON NORMALS: Normal to inspection, nondistended, normoactive bowel sounds present and non-tender Extremity: COMMON NORMALS: no pedal edema Neuro: COMMON NORMALS: patient oriented x3 Psych: COMMON NORMALS: mental status grossly normal Discharge Data Studies Completed and Pending Completed Studies During Hospitalization Category Date Time Status XR chest 1V portable [id number] Stat Exams 02/14/24 12:04 Completed Pending at discharge Category Date Time Status HOSPITALIST NOCTURNIST PHYSICIAN request for service Routine Exams 02/16/24 10:00 Ordered Basic Metabolic Panel AM LABS Lab 02/17/24 04:00 Ordered Complete Blood Count w/Auto AM LABS Lab 02/17/24 04:00 Ordered Magnesium AM LABS Lab 02/17/24 04:00 Ordered Radiology Impressions Chest X-Ray 02/14/24 12:04 IMPRESSION: Stable chest without acute abnormality. Laboratory Results WBC 5.43 10^3/uL (3.29-11.43) 02/16/24 03:53 RBC 4.47 10^6/uL (3.85-5.65) 02/16/24 03:53 Hgb 11.50 g/dL (11.27-16.99) 02/16/24 03:53 Hct 36.2 % (36-47) 02/16/24 03:53 MCV 81.0 fl (85-98) L 02/16/24 03:53 MCH 25.7 pg (27-33) L 02/16/24 03:53 MCHC 31.8 g/dL (30-55) 02/16/24 03:53 RDW 14.3 % (12.1-15.1) 02/16/24 03:53 Plt Count 281 10^3/cmm (157-399) 02/16/24 03:53 MPV 10.2 fL (7.4-10.4) 02/16/24 03:53 Neut % (Auto) 69.8 % 02/16/24 03:53 Lymph % (Auto) 16.8 % 02/16/24 03:53 [place] % (Auto) 8.8 % 02/16/24 03:53 Eos % (Auto) 3.1 % 02/16/24 03:53 Baso % (Auto) 0.9 % 02/16/24 03:53 Neut # (Auto) 3.79 10^3/uL (1.8-7.7) 02/16/24 03:53 Lymph # (Auto) 0.9 10^3/uL (0.8-4.8) 02/16/24 03:53 [place] # (Auto) 0.5 10^3/uL (0.2-0.9) 02/16/24 03:53 Eos # (Auto) 0.2 10^3/uL (0.0-0.8) 02/16/24 03:53 Baso # (Auto) 0.1 10^3/uL (0.0-0.1) 02/16/24 03:53 Nucleated RBC % (auto) 0 % 02/16/24 03:53 Nucleated RBCs # 0.0 /100WBC 02/16/24 03:53 PT 14.00 SECONDS (12.1-14.9) 02/14/24 12:37 INR 1.05 (0.8-1.2) 02/14/24 12:37 APTT 57.2 SECONDS (23.9-36.7) H 02/16/24 03:53 Sodium 139 mmol/L (136-145) 02/16/24 03:53 Potassium 4.3 mmol/L (3.5-5.1) 02/16/24 03:53 Chloride 100 mmol/L (98-107) 02/16/24 03:53 Carbon Dioxide 27 mmol/L (22-29) 02/16/24 03:53 Anion Gap 16.3 (5-19) 02/16/24 03:53 BUN 14 mg/dL (8-23) 02/16/24 03:53 Creatinine 0.7 mg/dL (0.5-0.9) 02/16/24 03:53 GFR Calculation Not Reportable 02/16/24 03:53 Glucose 121 mg/dL (65-115) H 02/16/24 03:53 Estimat Average Glucose 143 02/14/24 12:37 Hemoglobin A1c 6.6 % (4.0-6.0) H 02/14/24 12:37 Calculated Osmolality 290 mOsm/kg (285-295) 02/16/24 03:53 Calcium 9.0 mg/dL (8.5-10.5) 02/16/24 03:53 Magnesium 1.8 mg/dL (1.7-2.3) 02/16/24 03:53 Total Bilirubin 0.3 mg/dL (0.15-1.2) 02/14/24 12:37 AST 17 U/L (0-32) 02/14/24 12:37 ALT 16 U/L (0-33) 02/14/24 12:37 Alkaline Phosphatase 99 U/L (35-105) 02/14/24 12:37 Troponin T Baseline 9 ng/L (0-10) 02/14/24 12:37 Troponin T 120 Minute 6.52 ng/L (0-10) 02/14/24 14:30 Delta Troponin T -2.48 ABS# (0-10) L 02/14/24 14:30 Troponin T Hi Sens 6Hr 9.41 ng/L (0-10) 02/14/24 18:33 Troponin T Hi Sens 6Hr Delta 0.41 ng/L (0-12) 02/14/24 18:33 NT-Pro-B Natriuret Pep 67 pg/mL (0-125) 02/14/24 12:37 Total Protein 6.5 g/dL (6.6-8.7) L 02/14/24 12:37 Albumin 4.3 g/dL (3.5-5.2) 02/14/24 12:37 Globulin 2.2 g/dL (1.3-4.6) 02/14/24 12:37 Triglycerides 110 mg/dL (0-150) 02/14/24 12:37 Cholesterol 190 mg/dL (0-200) 02/14/24 12:37 LDL Cholesterol, Calc 81 mg/dL (50-129) 02/14/24 12:37 HDL Cholesterol 87 mg/dL (60-100) 02/14/24 12:37 LDL/HDL Ratio 0.93 RATIO (0.00-3.22) 02/14/24 12:37 Cholesterol/HDL Ratio 2.18 mg/dL (0.0-4.40) 02/14/24 12:37 TSH 1.97 uIU/mL (0.27-4.20) 02/14/24 12:37 Urine Color Yellow (Yellow) 02/15/24 18:09 Urine Appearance Clear (CLEAR) 02/15/24 18:09 Urine pH 6.5 (5-7) 02/15/24 18:09 Ur Specific [place] 1.010 (1.005-1.030) 02/15/24 18:09 Urine Protein Neg (Negative) 02/15/24 18:09 Urine Glucose (UA) Norm (Normal) 02/15/24 18:09 Urine Ketones Negative (Negative) 02/15/24 18:09 Urine Blood Neg (Negative) 02/15/24 18:09 Urine Nitrate Negative (Negative) 02/15/24 18:09 Urine Bilirubin Neg (Negative) 02/15/24 18:09 Urine Urobilinogen Neg mg/dL (Negative) 02/15/24 18:09 Ur Leukocyte Esterase Trace (Negative) H 02/15/24 18:09 Urine RBC 0-4 /hpf (0-2) H 02/15/24 18:09 Urine WBC 5-10 /hpf (0-5) H 02/15/24 18:09 Ur Squamous Epith Cells 0-4 /hpf (0-5) H 02/15/24 18:09 Amorphous Sediment Not Reportable 02/15/24 18:09 Urine Bacteria 1+ /hpf (NONE) H 02/15/24 18:09 Vitals Last Vital Signs Temp 98.0 F 02/16/24 11:48 Pulse 77 02/16/24 11:48 Resp 27 H 02/16/24 11:48 BP 143/82 02/16/24 11:48 Pulse Ox 93 02/16/24 11:48 O2 Del Method Room Air 02/16/24 11:48 Discharge Plan Discharge Patient Disposition: Home Condition: Stable Prescriptions: New cefdinir 300 mg capsule 300 mg PO BID 5 Days Qty: 10 0RF Continued ezetimibe [Zetia] 10 mg tablet 10 mg PO DAILY multivitamin Tablet 1 tab PO DAILY fluticasone propionate [Flonase Allergy Relief] 50 mcg/actuation spray,suspension 1 spray INTRANASAL DAILY PRN (Reason: ALLERGIES) montelukast 10 mg tablet 10 mg PO DAILY levothyroxine 125 mcg capsule 125 mcg PO DAILY aripiprazole [Abilify] 2 mg tablet 2 mg PO DAILY magnesium oxide [MagOx] 400 mg (241.3 mg magnesium) tablet 400 mg PO DAILY pantoprazole [Protonix] [address] for susp in packet 40 mg PO BID metoclopramide HCl [Reglan] 5 mg tablet 5 mg PO DAILY PRN (Reason: Abdominal Discomfort) ferrous sulfate [Feosol] 325 mg (65 mg iron) tablet 325 mg PO DAILY sucralfate [Carafate] 1 gram tablet 1 g PO BID PRN (Reason: UPSET STOMACH) isosorbide mononitrate 30 mg tablet extended release 24 hr 30 mg PO DAILY Qty: 30 5RF Eliquis 5 mg tablet 5 mg PO BID Qty: 60 11RF nitroglycerin [Nitrostat] 0.4 mg tablet, sublingual 0.4 mg SUBLINGUAL Q5M PRN (Reason: chest pain) Qty: 25 3RF methocarbamol 500 mg tablet 500 mg PO TID PRN (Reason: MUSCLE SPASM) gabapentin 300 mg capsule 600 mg PO QPM albuterol sulfate 90 mcg/actuation HFA aerosol inhaler 2 puff INHALATION Q6H PRN (Reason: Shortness Of Breath) rizatriptan 5 mg tablet,disintegrating 5 mg PO DAILY PRN (Reason: Migraine Headache) duloxetine 20 mg capsule,delayed release(DR/EC) 20 mg PO DAILY Rx Instructions: ALONG WITH 60MG TO=80MG TOTAL duloxetine 60 mg capsule,delayed release(DR/EC) 60 mg PO DAILY Rx Instructions: ALONG WITH 20MG TO= 80MG TOTAL Denta 5000 Plus 1.1 % cream 1 applic PO DAILY CoQ-10 30 mg Capsule 30 mg PO DAILY Vitamin D3 25 mcg (1,000 unit) Tablet 25 mcg PO DAILY diltiazem HCl 120 mg capsule,extended release 24hr 120 mg PO DAILY hydrocodone-acetaminophen 10-325 mg tablet 1 tab PO Q6H PRN (Reason: Pain) [place] 3 Fish Oil 684-1,200 mg Capsule,Delayed Release(Dr/Ec) 1 cap PO DAILY calcium carb,[id number] 315-250-200 mg-unit-mg Tablet 1 tab PO DAILY Changed sertraline [Zoloft] 50 mg tablet See Rx Instructions .ROUTE .COMPLEX Qty: 11 0RF Rx Instructions: 0.5 tab daily for 2 weeks, 0.5 every other day for 2 weeks, then stop Discontinued lorazepam 1 mg Tablet 0.5 - 1 mg PO TID PRN (Reason: Anxiety) Discharge Orders: Discharge Order (Routine); Ordered 07/28/24 Ordered By: Jordan Borden Referrals: Lorena Jackson MD [Primary Care Provider] - (Please call Dr. Jackson's Office on Saturday or Saturday at [phone] to schedule a follow up appointment. You can call them with any questions or concerns. Thank you.) Elisabet Tolliver FNP [Nurse Practitioner] - (Please call Elisabet Tolliver's Office on Saturday or Saturday at [phone] to schedule a follow up appointment. You can call them with any questions or concerns. Thank you. We have notified your physician's clinic of the need for a follow-up appointment to be scheduled. If you have not heard from them within the next 2 business days, please call them directly. ) Discharge Diet: Cardiac Discharge Activity: Resume usual activity Patient Instructions: Opioid Safety Discharge Attestations Time Spent in Discharge Care*: greater than 30 min Quality Metrics Clinical Quality Measures [ No reported AMI, CVA or VTE this stay] Coding Level of Care Code 88431 Total time (in minutes) for Discharge: 45 Diagnoses Unstable angina I20.0 Abnormal cardiovascular stress test R94.39
--- NOTE | 2024-02-16 16:49 | PC.NURSE ---
Discharge Note Patient discharged to home via private vehicle accompanied by sister. Discharge instructions reviewed with patient and/or instruments sales representative. Mobile pharmacy medications and/or prescriptions provided. Belongings/home medications returned.
== END 2024-02-16 16:30 | disposition home or self-care (01) | DRG 287 ==
LOC: ER 13:24 → CSU 15:38
PROVIDERS: Internal Medicine Cardiovascular Disease; Admitting Provider Family Medicine; Emergency Provider Family Medicine; PCP Family Medicine; Visit Provider Family Medicine
PROC: B2111ZZ Fluoroscopy of Multiple Coronary Arteries using Low Osmolar Contrast (ICD-10-PCS; principal; 2024-02-16 10:00)
DX: I20.0 Unstable angina (principal); I48.92 Unspecified atrial flutter; R94.39 Abnormal result of other cardiovascular function study; E03.9 Hypothyroidism, unspecified; F32.A Depression, unspecified; F41.9 Anxiety disorder, unspecified; E78.00 Pure hypercholesterolemia, unspecified; I10 Essential (primary) hypertension; Z79.01 Long term (current) use of anticoagulants; K21.9 Gastro-esophageal reflux disease without esophagitis; E11.9 Type 2 diabetes mellitus without complications; K44.9 Diaphragmatic hernia without obstruction or gangrene
CPT/HCPCS: 36415; 71045; 80048; 80053; 80061; 81001; 81003; 83036; 83735; 83880; 84443; 84484; 85025; 85610; 85730; 93005; 93454; 94664; 96365; 96366; 96374; 96375; 99152; 99153; 99285; A9270; C1769; C1887; C1894; J0696; J1644; J2250; J3010; J3490; J7030; Q9967

== ENCOUNTER → 2024-03-04 12:38 | Outpatient (BNVA) | payer MEDICARE, MEDICAID, SELFPAY | PROVIDERS: PCP Family Medicine; Visit Provider Nurse Practitioner Family | DX: Z09 Encounter for follow-up examination after completed treatment for conditions other than malignant neoplasm (principal) | CPT/HCPCS: 99213 ==

== ENCOUNTER 2024-03-08 04:14 | Inpatient (IN) | payer MEDICARE, MEDICAID, SELFPAY ==
[2024-03-08] VITALS (14 sets, daily range): BP systolic 120–146; BP diastolic 58–85; PULSE 63–84; RESP 16–29; TEMP 36.3–36.7; O2SAT 90–98; BMI 39.5
[2024-03-08 04:26] LABS: Basophils # 0.1 10^3/uL (0.0-0.1); Basophils % 0.6 %; Eosinophils # 0.2 10^3/uL (0.0-0.8); Eosinophils % 1.9 %; Hematocrit 36.6 % (36-47); Lymphocytes # 0.7 10^3/uL (0.8-4.8); Lymphocytes % 8.6 %; Mean Corpuscular HGB Conc 31.1 g/dL (30-55); Mean Corpuscular Hemoglobin 25.3 pg (27-33); Mean Corpuscular Volume 81.2 fl (85-98); Mean Platelet Volume 10.1 fL (7.4-10.4); Monocytes # 0.4 10^3/uL (0.2-0.9); Neutrophils # 7.04 10^3/uL (1.8-7.7); Neutrophils % 83.7 %; Nucleated Red Blood Cells % 0 %; Platelet Count 278 10^3/cmm (157-399); Red Blood Count 4.51 10^6/uL (3.85-5.65); Red Cell Distribution Width 15.4 % (12.1-15.1); White Blood Count 8.41 10^3/uL (3.29-11.43)
[2024-03-08 04:45] LABS: Alanine Aminotransferase 12 U/L (0-33); Alkaline Phosphatase 94 U/L (35-105); Anion Gap 16.4 (5-19); Aspartate Amino Transferase 16 U/L (0-32); Blood Urea Nitrogen 17 mg/dL (8-23); Calcium 9.2 mg/dL (8.5-10.5); Carbon Dioxide 26 mmol/L (22-29); Chloride 101 mmol/L (98-107); Creatinine Clr Calc Pharmacy 72.4364; Globulin 2.6 g/dL (1.3-4.6); Glucose 131 mg/dL (65-115); Lipase 39 U/L (13-60); Osmolality Calculated 291 mOsm/kg (285-295); Potassium 4.4 mmol/L (3.5-5.1); Sodium 139 mmol/L (136-145); Total Bilirubin 0.3 mg/dL (0.15-1.2); Total Protein 6.6 g/dL (6.6-8.7)
--- NOTE | 2024-03-08 05:08 | CTR_ITS ---
PROCEDURE INFORMATION: Exam: CT Abdomen And Pelvis With Contrast Exam date and time: 03/08/2024 5:16 AM Age: 73 years old Clinical indication: Abdominal pain; Generalized; Prior surgery; Surgery date: 6+ months; Surgery type: Bilat mast. Tram breast reconstruction. Gb. Sleeve gastrectomy. Hysterectomy. Hernia repair. Patient HX: C/O severe diffuse abd pain. History of ventral hernia and bowel obstruction. ; Additional info: Abd pain HX of bowel obstruction TECHNIQUE: Imaging protocol: Computed tomography of the abdomen and pelvis with contrast. Radiation optimization: All CT scans at this facility use at least one of these dose optimization techniques: automated exposure control; mA and/or kV adjustment per patient size (includes targeted exams where dose is matched to clinical indication); or iterative reconstruction. Contrast material: OMNI 350; Contrast volume: 100 ml; Contrast route: INTRAVENOUS (IV); COMPARISON: CT abdomen pelvis w con* [id number] 11/10/2021 10:13 AM RADIATION DOSE METRICS: Total DLP (mGy-cm): 991.59 FINDINGS: Lungs: Lung bases are clear as visualized. Esophagus: There is wall thickening involving the distal esophagus suggesting esophagitis. Liver: There is mild fatty infiltration of the liver. There is a small benign-appearing hepatic cyst. The liver is otherwise normal. Gallbladder and biliary ducts: There are surgical clips within the gallbladder fossa. The common bile duct is mildly dilated measuring 10.5 mm in size. This may be post cholecystectomy in nature. Recommend clinical correlation. If there is a strong clinical concern for a ductal stone, recommend further evaluation with ERCP/MRCP. Pancreas: Normal. No ductal dilation. Spleen: Normal. No splenomegaly. Adrenal glands: Normal. No mass. Kidneys and ureters: There are small benign-appearing renal cysts. Small hyperdense lesion projecting off the inferior pole of the left kidney measures 10-11 mm in size. This is unchanged when compared to prior exam. The kidneys are otherwise normal. Stomach and bowel: There are postoperative changes involving the stomach which may be related to a prior gastric sleeve procedure. There are scattered colonic diverticula. No large bowel wall thickening is appreciated. There are multiple dilated loops of small bowel with air-fluid levels terminal ileal loops are more normal in caliber. Findings compatible with a small bowel obstruction. Minimal mesenteric edema is noted within the mesentery of the right lower abdomen. Small focus of hyperdense material within the lumen of the small bowel (series 3, image 67 and series 3, image 43 could represent ingested material or could represent intraluminal hemorrhage. Appendix: The appendix is not definitely identified. Intraperitoneal space: Unremarkable. No free air. No significant fluid collection. Vasculature: Unremarkable. No abdominal aortic aneurysm. Lymph nodes: Unremarkable. No enlarged lymph nodes. Urinary bladder: Unremarkable as visualized. Reproductive: The uterus is not identified. Bones/joints: Unremarkable. No acute fracture. Soft tissues: Unrem there is a right upper abdominal wall hernia defect which measures 9.2 cm in transverse dimension. A loop of large bowel as well as a portion of the stomach extends into the hernia defect. No evidence of obstruction caused by this hernia defect. CT/CT abdomen pelvis w con* [id number] IMPRESSION: 1. Findings compatible with a small bowel obstruction. 2. Small foci of hyperdense material within the lumen of the small bowel could represent ingested material or possibly even focal areas of hemorrhage. 3. Diverticulosis. 4. Right upper abdominal wall hernia defect. COMMENTS: Consistent with the [employer]'s Incidental Findings Committee white paper (J Am Mathew Radiol 2018): Any incidental renal lesion less than 1 cm or classified as too small to characterize, or any incidental cystic renal lesion characterized as simple-appearing, is likely benign. No follow-up imaging is recommended for these lesions per consensus recommendations based on imaging criteria.
--- NOTE | 2024-03-08 05:12 | ED_ITS ---
HPI - Abdominal Pain 2 General: Chief Complaint: Abdominal Pain Stated Complaint: Abd pain Time Seen by Provider: 03/08/24 04:19 History of Present Illness: 73-year-old female with a history of mul tiple belly surgeries. She has a ventral hernia that is recurrent after a couple of previous attempts at repair. She has a history of small bowel obstruction. She presents with periumbilical abdominal pain, distention, and nausea. It started around 1 AM. She called an ambulance. She is given fentanyl in the ambulance, with significant improvement in her pain although she notes it is beginning to come back. No fever. No vomiting. Last stool was day before yesterday and was normal. No history of blood in the stool. Related Data Home Medications Medication Instructions Recorded Confirmed ezetimibe 10 mg tablet (Zetia) 10 mg PO DAILY 11/16/19 03/04/24 fluticasone propionate 50 1 spray intranasal DAILY PRN 11/16/19 03/04/24 mcg/actuation nasal ALLERGIES spray,suspension (Flonase Allergy Relief) levothyroxine 125 mcg capsule 125 mcg PO DAILY 11/16/19 03/04/24 montelukast 10 mg tablet 10 mg PO DAILY 11/16/19 03/04/24 multivitamin 1 tab PO DAILY 11/16/19 03/04/24 calcium carb,cit 315 mg-vitamin D3 1 tab PO DAILY 11/10/21 03/04/24 250 unit-phytosterols 200 mg tablet hydrocodone 10 mg-acetaminophen 1 tab PO Q6H PRN Pain 11/10/21 03/04/24 325 mg tablet omega-3 fatty acids-fish oil 684 1 cap PO DAILY 11/10/21 03/04/24 mg-1,200 mg capsule,delayed release aripiprazole 2 mg tablet (Abilify) 2 mg PO DAILY 06/05/22 03/04/24 magnesium oxide 400 mg (241.3 mg 400 mg PO DAILY 06/05/22 03/04/24 magnesium) tablet (MagOx) ferrous sulfate 325 mg (65 mg 325 mg PO DAILY 06/04/23 03/04/24 iron) tablet (Feosol) metoclopramide HCl 5 mg tablet 5 mg PO DAILY PRN Abdominal 06/04/23 03/04/24 (Reglan) Discomfort pantoprazole 40 mg granules 40 mg PO BID 06/04/23 03/04/24 delayed-release for susp in packet (Protonix) sucralfate 1 gram tablet (Carafate) 1 g PO BID PRN UPSET STOMACH 06/04/23 03/04/24 albuterol sulfate 90 mcg/actuation 2 puff inhalation Q6H PRN 02/14/24 03/04/24 aerosol inhaler Shortness Of Breath cholecalciferol (vitamin D3) 25 25 mcg PO DAILY 02/14/24 03/04/24 mcg (1,000 unit) tablet (Vitamin D3) coenzyme Q10 30 mg capsule 30 mg PO DAILY 02/14/24 03/04/24 diltiazem HCl 120 mg 120 mg PO DAILY 02/14/24 03/04/24 capsule,extended release 24 hr duloxetine 20 mg capsule,delayed 20 mg PO DAILY 02/14/24 03/04/24 release duloxetine 60 mg capsule,delayed 60 mg PO DAILY 02/14/24 03/04/24 release fluoride (sodium) 1.1 % dental 1 applic PO DAILY 02/14/24 03/04/24 cream (Denta 5000 Plus) gabapentin 300 mg capsule 600 mg PO QPM 02/14/24 03/04/24 methocarbamol 500 mg tablet 500 mg PO TID PRN MUSCLE SPASM 02/14/24 03/04/24 rizatriptan 5 mg disintegrating 5 mg PO DAILY PRN Migraine Headache 02/14/24 03/04/24 tablet Previous Rx's Medication Instructions Recorded apixaban 5 mg tablet (Eliquis) 5 mg PO BID #60 tabs 05/14/23 nitroglycerin 0.4 mg sublingual 0.4 mg sublingual Q5M PRN chest 12/17/23 tablet (Nitrostat) pain #25 tabs sertraline 50 mg tablet (Zoloft) See Rx Instructions .Route 02/16/24 .COMPLEX #11 tabs Allergies Allergy/AdvReac Type Severity Reaction Status Date / Time Sulfa (Sulfonamide Allergy Unknown Unknown Verified 03/04/24 12:44 Antibiotics) PFS ED 2 PFSH: Medical History Hypothyroidism Chronic back pain Depression with anxiety GERD (gastroesophageal reflux disease) IBS (irritable bowel syndrome) COPD (chronic obstructive pulmonary disease) Diabetes mellitus History of TIA (transient ischemic attack) Fibromyalgia History of breast cancer HTN (hypertension) Atrial flutter Hypercholesterolemia Surgical History S/P knee replacement Bilateral S/P cholecystectomy S/P hernia repair S/P hysterectomy S/P mastectomy S/P tubal ligation S/P tonsillectomy S/P cataract extraction History of colonoscopy History of bilateral mastectomy 1988 History of tonsillectomy S/P TRAM (transverse rectus abdominis muscle) flap breast reconstruction 1989 History of sleeve gastrectomy Family History Mother Bleeding disorder CAD (coronary artery disease), Onset Age: 70 Family/Other Cancer Diabetes Brother Diabetes Daughter Lung disease Daughter Lung disease Father Stroke Other Heart disease Denies family history of Clotting disorder Dementia Chronic kidney disease (CKD) Suicide Anesthesia complication Social History Smoking and tobacco/nicotine status: unknown if used tobacco/nicotine Alcohol intake: never Substance/Drug Use: never Physical Exam 2 Const: COMMON NORMALS: no acute distress GENERAL APPEARANCE: cooperative; not ill appearing and not frail appearing HENMT: COMMON NORMALS: normocephalic, atraumatic and Normal external nose present HEAD & SCALP: normocephalic and atraumatic FACE & SINUS: normal facial exam and face symmetric NOSE: Normal external nose present Eye: COMMON NORMALS: Equal, round and reactive pupils present and EOMs intact bilaterally PUPIL: Yes Equal, round and reactive pupils present Neck/C-Spine: GENERAL: Yes trachea midline Chest: CHEST: Yes Symmetrical chest wall rise Resp: COMMON NORMALS: normal respiratory effort, No retractions, No use of accessory muscles and clear to auscultation bilaterally AUSCULTATION: clear to auscultation bilaterally Cardio: COMMON NORMALS: regular rate and regular rhythm RATE: regular rate RHYTHM: regular rhythm GI: COMMON NORMALS: Soft to palpation INSPECTION: Yes abdominal distension AUSCULTATION: Yes Hyperactive bowel sounds present PALPATION: Yes Soft to palpation and Yes Tenderness to palpation present (GI) (Diffuse) OTHER: Palpable ventral hernia present Extremity: COMMON NORMALS: no pedal edema Neuro: SEBAS COMA SCALE: document GCS findings Sebas coma scale eye opening: Spontaneous Sebas coma scale verbal response: Orientated [place] coma scale motor response: Obey commands [place] coma scale total score: 15 S ENSORY EXAM: Yes extremities (intact) Psych: COMMON NORMALS: speech normal SPEECH: Yes normal speech Skin: COMMON NORMALS: no rashes or lesions noted GENERAL SKIN EXAM: no rashes or lesions noted Course 2 Vital Signs: Vital signs: Vital Signs Temperature 98 F 03/08/24 04:15 Pulse Rate 84 03/08/24 04:19 Respiratory Rate 16 03/08/24 05:12 Blood Pressure 135/73 03/08/24 05:12 Pulse Oximetry 96 03/08/24 05:12 Oxygen Delivery Me thod Room Air 03/08/24 05:12 MDM - Abdominal Pain Medical Decision Making 73-year-old female history of multiple abdominal surgeries. She presents with abdominal pain and distention. She is afebrile. Vitals are stable. CBC is normal. BMP is not remarkable. Liver enzymes are nonremarkable. Urinalysis is negative. CT reveals findings consistent with a small bowel obstruction. There is hyperdense material in the small bowel, small amount which is likely ingested material, but may be a focal area of hemorrhage. Radiology feels this is less likely. The right upper abdominal wall hernia defect does not appear to be involved in her obstruction. Spoke with general surgery. Requests NG tube, and admission to medicine given multiple medical problems including anticoagulation with atrial flutter history, with their consultation. Spoke with medicine, they are willing to admit. Lab Data 03/08/24 04:19 03/08/24 04:19 Labs/Radiology: Radiology Impressions Abdomen/Pelvis CT 03/08/24 05:08 IMPRESSION: 1. Findings compatible with a small bowel obstruction. 2. Small foci of hyperdense material within the lumen of the small bowel could represent ingested material or possibly even focal areas of hemorrhage. 3. Diverticulosis. 4. Right upper abdominal wall hernia defect. COMMENTS: Consistent with the [employer]'s Incidental Findings Committee white paper (J Am Mathew Radiol 2018): Any incidental renal lesion less than 1 cm or classified as too small to characterize, or any incidental cystic renal lesion characterized as simple-appearing, is likely benign. No follow-up imaging is recommended for these lesions per consensus recommendations based on imaging criteria. ADDENDUM: 03/08/24 0554 COMMENT: THIS REPORT CONTAINS FINDINGS THAT MAY BE CRITICAL TO PATIENT CARE. The exam findings were verbally communicated by me to HILTON LUIS via telephone conference at 5:53 AM CDT on 03/08/2024. The findings were acknowledged and understood. Laboratory Results WBC 8.41 10^3/uL (3.29-11.43) 03/08/24 04:19 RBC 4.51 10^6/uL (3.85-5.65) 03/08/24 04:19 Hgb 11.40 g/dL (11.27-16.99) 03/08/24 04:19 Hct 36.6 % (36-47) 03/08/24 04:19 MCV 81.2 fl (85-98) L 03/08/24 04:19 MCH 25.3 pg (27-33) L 03/08/24 04:19 MCHC 31.1 g/dL (30-55) 03/08/24 04:19 RDW 15.4 % (12.1-15.1) H 03/08/24 04:19 Plt Count 278 10^3/cmm (157-399) 03/08/24 04:19 MPV 10.1 fL (7.4-10.4) 03/08/24 04:19 Neut % (Auto) 83.7 % 03/08/24 04:19 Lymph % (Auto) 8.6 % 03/08/24 04:19 [place] % (Auto) 5.0 % 03/08/24 04:19 Eos % (Auto) 1.9 % 03/08/24 04:19 Baso % (Auto) 0.6 % 03/08/24 04:19 Neut # (Auto) 7.04 10^3/uL (1.8-7.7) 03/08/24 04:19 Lymph # (Auto) 0.7 10^3/uL (0.8-4.8) L 03/08/24 04:19 [place] # (Auto) 0.4 10^3/uL (0.2-0.9) 03/08/24 04:19 Eos # (Auto) 0.2 10^3/uL (0.0-0.8) 03/08/24 04:19 Baso # (Auto) 0.1 10^3/uL (0.0-0.1) 03/08/24 04:19 Nucleated RBC % (auto) 0 % 03/08/24 04:19 Nucleated RBCs # 0.0 /100WBC 03/08/24 04:19 Sodium 139 mmol/L (136-145) 03/08/24 04:19 Potassium 4.4 mmol/L (3.5-5.1) 03/08/24 04:19 Chloride 101 mmol/L (98-107) 03/08/24 04:19 Carbon Dioxide 26 mmol/L (22-29) 03/08/24 04:19 Anion Gap 16.4 (5-19) 03/08/24 04:19 BUN 17 mg/dL (8-23) 03/08/24 04:19 Creatinine 0.9 mg/dL (0.5-0.9) 03/08/24 04:19 GFR Calculation Not Reportable 03/08/24 04:19 Glucose 131 mg/dL (65-115) H 03/08/24 04:19 Calculated Osmolality 291 mOsm/kg (285-295) 03/08/24 04:19 Calcium 9.2 mg/dL (8.5-10.5) 03/08/24 04:19 Total Bilirubin 0.3 mg/dL (0.15-1.2) 03/08/24 04:19 AST 16 U/L (0-32) 03/08/24 04:19 ALT 12 U/L (0-33) 03/08/24 04:19 Alkaline Phosphatase 94 U/L (35-105) 03/08/24 04:19 C-Reactive Protein 3.0 mg/L (0.0-4.9) 03/08/24 04:19 Total Protein 6.6 g/dL (6.6-8.7) 03/08/24 04:19 Albumin 4.0 g/dL (3.5-5.2) 03/08/24 04:19 Globulin 2.6 g/dL (1.3-4.6) 03/08/24 04:19 Lipase 39 U/L (13-60) 03/08/24 04:19 Urine Color Yellow (Yellow) 03/08/24 05:07 Urine Appearance Clear (CLEAR) 03/08/24 05:07 Urine pH 6.5 (5-7) 03/08/24 05:07 Ur Specific [place] 1.024 (1.005-1.030) 03/08/24 05:07 Urine Protein Negative (Negative) 03/08/24 05:07 Urine Glucose (UA) Negative (Normal) 03/08/24 05:07 Urine Ketones Trace (Negative) 03/08/24 05:07 Urine Blood Negative (Negative) 03/08/24 05:07 Urine Nitrate Negative (Negative) 03/08/24 05:07 Urine Bilirubin Negative (Negative) 03/08/24 05:07 Urine Urobilinogen 1.0 mg/dL (Negative) 03/08/24 05:07 Ur Leukocyte Esterase Trace (Negative) A 03/08/24 05:07 Urine RBC 3-5 /hpf (0-2) 03/08/24 05:07 Urine WBC 0-5 /hpf (0-5) 03/08/24 05:07 Ur Squamous Epith Cells 0-5 /hpf (0-5) 03/08/24 05:07 Amorphous Sediment Not Reportable 03/08/24 05:07 Urine Bacteria None seen /hpf (NONE) 03/08/24 05:07 Hyaline Casts 0.40 /lpf 03/08/24 05:07 All radiology interpretation(s) finalized by discharge Discharge Plan Discharge Patient Disposition: Admitted As Inpatient Clinical Impression: Small bowel obstruction Condition: Fair Prescriptions: No Action ezetimibe [Zetia] 10 mg tablet 10 mg PO DAILY multivitamin Tablet 1 tab PO DAILY fluticasone propionate [Flonase Allergy Relief] 50 mcg/actuation spray,suspension 1 spray INTRANASAL DAILY PRN (Reason: ALLERGIES) montelukast 10 mg tablet 10 mg PO DAILY levothyroxine 125 mcg capsule 125 mcg PO DAILY aripiprazole [Abilify] 2 mg tablet 2 mg PO DAILY magnesium oxide [MagOx] 400 mg (241.3 mg magnesium) tablet 400 mg PO DAILY pantoprazole [Protonix] [address] for susp in packet 40 mg PO BID metoclopramide HCl [Reglan] 5 mg tablet 5 mg PO DAILY PRN (Reason: Abdominal Discomfort) ferrous sulfate [Feosol] 325 mg (65 mg iron) tablet 325 mg PO DAILY sucralfate [Carafate] 1 gram tablet 1 g PO BID PRN (Reason: UPSET STOMACH) Eliquis 5 mg tablet 5 mg PO BID Qty: 60 11RF nitroglycerin [Nitrostat] 0.4 mg tablet, sublingual 0.4 mg SUBLINGUAL Q5M PRN (Reason: chest pain) Qty: 25 3RF methocarbamol 500 mg tablet 500 mg PO TID PRN (Reason: MUSCLE SPASM) gabapentin 300 mg capsule 600 mg PO QPM albuterol sulfate 90 mcg/actuation HFA aerosol inhaler 2 puff INHALATION Q6H PRN (Reason: Shortness Of Breath) rizatriptan 5 mg tablet,disintegrating 5 mg PO DAILY PRN (Reason: Migraine Headache) duloxetine 20 mg capsule,delayed release(DR/EC) 20 mg PO DAILY Rx Instructions: ALONG WITH 60MG TO=80MG TOTAL duloxetine 60 mg capsule,delayed release(DR/EC) 60 mg PO DAILY Rx Instructions: ALONG WITH 20MG TO= 80MG TOTAL Denta 5000 Plus 1.1 % cream 1 applic PO DAILY coenzyme Q10 30 mg Capsule 30 mg PO DAILY Vitamin D3 25 mcg (1,000 unit) Tablet 25 mcg PO DAILY diltiazem HCl 120 mg capsule,extended release 24hr 120 mg PO DAILY Zoloft 50 mg tablet See Rx Instructions .ROUTE .COMPLEX Qty: 11 0RF Rx Instructions: 0.5 tab daily for 2 weeks, 0.5 every other day for 2 weeks, then stop hydrocodone-acetaminophen 10-325 mg tablet 1 tab PO Q6H PRN (Reason: Pain) omega-3 fatty acids-fish oil 684-1,200 mg Capsule,Delayed Release(Dr/Ec) 1 cap PO DAILY calcium carb,[id number] 315-250-200 mg-unit-mg Tablet 1 tab PO DAILY Referrals: Lorena Jackson MD [Primary Care Provider] - Coding Level of Care Code ED [employer] for Beleng Reymundo
[2024-03-08 05:15] LABS: Charge for UA Resulting for Rev
[2024-03-08 05:22] LABS: Bilirubin Urine Negative (Negative); Blood Urine Negative (Negative); Glucose Urine UA Negative (Normal); Ketones Urine Trace (Negative); Leukocyte Esterase Urine Trace (Negative); Nitrate Urine Negative (Negative); Protein Urine Negative (Negative); Specific Gravity, Urine 1.024 (1.005-1.030); Urine Appearance Clear (CLEAR); Urine Color Yellow (Yellow); pH Urine 6.5 (5-7)
[2024-03-08] MEDS: ondansetron 2 mg/ML SDV 2 mL 4 MG IVP (05:26)
[2024-03-08] MEDS: morphine 4 mg/mL SDV 1 mL IVP ×3 (05:26→20:35)
[2024-03-08] MEDS: sodium chloride 0.9% 1,000 ML 999 ML IV (05:26)
[2024-03-08 05:27] LABS: Bacteria Urine None Seen /hpf; Squamous Epithelial Cell Urine 0-5 /hpf (0-5); WBC Urine 0-5 /hpf (0-5)
[2024-03-08] MEDS: iohexol 350 mg/mL 500 mL Btl (per mL) IV (05:28)
--- NOTE | 2024-03-08 06:05 | P.HP_ITS ---
Providers/Chief Complaint 2 Primary Care Provider: Lorena Jackson MD Chief Complaint: Abd pain History of Present Illness Maida Shelton is a very pleasant 73 year old female with a past medical history significant for atrial flutter on apixaban, type 2 diabetes mellitus, COPD, hypothyroidism, hiatal hernia, hypertension, ventral hernia and history of multiple abdominal surgeries who presents the emergency department with abdominal pain. She reports onset around 1 AM this morning upon awakening. She describes the location is periumbilical. She endorses associated nausea and abdominal distention. She states initially the pain was severe. She received IV analgesics prior to my evaluation and states that these pain medications has helped the pain. Denies emesis, fevers, or chills. Reports last bowel movement was yesterday and was normal. Denies other alleviating or aggravating factors. In the emergency department, patient was found to have small bowel obstruction by CT imaging. She notes multiple prior abdominal surgeries, noting for surgery since 2006. Review of Systems 2 Narrative: A complete review of systems was obtained and is negative except as stated in HPI. Medications/Allergies Home Medications Medication Instructions Recorded Confirmed Last Taken Type ezetimibe 10 mg tablet (Zetia) 10 mg PO DAILY 11/16/19 03/04/24 11/09/21 History fluticasone propionate 50 1 spray intranasal DAILY PRN 11/16/19 03/04/24 Unknown History mcg/actuation nasal ALLERGIES spray,suspension (Flonase Allergy Relief) levothyroxine 125 mcg capsule 125 mcg PO DAILY 11/16/19 03/04/24 02/14/24 History montelukast 10 mg tablet 10 mg PO DAILY 11/16/19 03/04/24 02/14/24 History multivitamin 1 tab PO DAILY 11/16/19 03/04/24 02/13/24 History calcium carb,cit 315 mg-vitamin D3 1 tab PO DAILY 11/10/21 03/04/24 02/13/24 History 250 unit-phytosterols 200 mg tablet hydrocodone 10 mg-acetaminophen 1 tab PO Q6H PRN Pain 11/10/21 03/04/24 Unknown History 325 mg tablet omega-3 fatty acids-fish oil 684 1 cap PO DAILY 11/10/21 03/04/24 02/13/24 History mg-1,200 mg capsule,delayed release aripiprazole 2 mg tablet (Abilify) 2 mg PO DAILY 06/05/22 03/04/24 02/14/24 History magnesium oxide 400 mg (241.3 mg 400 mg PO DAILY 06/05/22 03/04/24 02/13/24 History magnesium) tablet (MagOx) apixaban 5 mg tablet (Eliquis) 5 mg PO BID #60 tabs 05/14/23 03/04/24 02/14/24 Rx ferrous sulfate 325 mg (65 mg 325 mg PO DAILY 06/04/23 03/04/24 02/13/24 History iron) tablet (Feosol) metoclopramide HCl 5 mg tablet 5 mg PO DAILY PRN Abdominal 06/04/23 03/04/24 Unknown History (Reglan) Discomfort pantoprazole 40 mg granules 40 mg PO BID 06/04/23 03/04/24 02/14/24 History delayed-release for susp in packet (Protonix) sucralfate 1 gram tablet (Carafate) 1 g PO BID PRN UPSET STOMACH 06/04/23 03/04/24 Unknown History nitroglycerin 0.4 mg sublingual 0.4 mg sublingual Q5M PRN chest 12/17/23 03/04/24 Unknown Rx tablet (Nitrostat) pain #25 tabs albuterol sulfate 90 mcg/actuation 2 puff inhalation Q6H PRN 02/14/24 03/04/24 Unknown History aerosol inhaler Shortness Of Breath cholecalciferol (vitamin D3) 25 25 mcg PO DAILY 02/14/24 03/04/24 02/13/24 History mcg (1,000 unit) tablet (Vitamin D3) coenzyme Q10 30 mg capsule 30 mg PO DAILY 02/14/24 03/04/24 02/13/24 History diltiazem HCl 120 mg 120 mg PO DAILY 02/14/24 03/04/24 02/14/24 History capsule,extended release 24 hr duloxetine 20 mg capsule,delayed 20 mg PO DAILY 02/14/24 03/04/24 02/14/24 History release duloxetine 60 mg capsule,delayed 60 mg PO DAILY 02/14/24 03/04/24 02/14/24 History release fluoride (sodium) 1.1 % dental 1 applic PO DAILY 02/14/24 03/04/24 Unknown History cream (Denta 5000 Plus) gabapentin 300 mg capsule 600 mg PO QPM 02/14/24 03/04/24 02/13/24 History methocarbamol 500 mg tablet 500 mg PO TID PRN MUSCLE SPASM 02/14/24 03/04/24 Unknown History rizatriptan 5 mg disintegrating 5 mg PO DAILY PRN Migraine Headache 02/14/24 03/04/24 Unknown History tablet sertraline 50 mg tablet (Zoloft) See Rx Instructions .Route 02/16/24 03/04/24 02/14/24 Rx .COMPLEX #11 tabs Allergies Allergy/AdvReac Type Severity Reaction Status Date / Time Sulfa (Sulfonamide Allergy Unknown Unknown Verified 03/04/24 12:44 Antibiotics) PFSH Acute 2 PFSH: Medical History (Updated 03/08/24 @ 06:20 by Lj Benito MD) Acute diverticulitis Hypothyroidism Chronic back pain Depression with anxiety GERD (gastroesophageal reflux disease) IBS (irritable bowel syndrome) COPD (chronic obstructive pulmonary disease) Diabetes mellitus History of TIA (transient ischemic attack) Fibromyalgia History of breast cancer HTN (hypertension) Atrial flutter Hypercholesterolemia Surgical History S/P knee replacement Bilateral S/P cholecystectomy S/P hernia repair S/P hysterectomy S/P mastectomy S/P tubal ligation S/P tonsillectomy S/P cataract extraction History of colonoscopy History of bilateral mastectomy 1988 History of tonsillectomy S/P TRAM (transverse rectus abdominis muscle) flap breast reconstruction 1989 History of sleeve gastrectomy Family History Mother Bleeding disorder CAD (coronary artery disease), Onset Age: 70 Family/Other Cancer Diabetes Brother Diabetes Daughter Lung disease Daughter Lung disease Father Stroke Other Heart disease Denies family history of Clotting disorder Dementia Chronic kidney disease (CKD) Suicide Anesthesia complication Social History Smoking and tobacco/nicotine status: unknown if used tobacco/nicotine Alcohol intake: never Substance/Drug Use: never Vitals/I&O/Wt Last Vital Signs Temp 98 F 03/08/24 04:15 Pulse 84 03/08/24 04:19 Resp 16 03/08/24 05:12 BP 135/73 03/08/24 05:12 Pulse Ox 96 03/08/24 05:12 O2 Del Method Room Air 03/08/24 05:12 Weight last 48 hrs Weight 111.13 kg Physical Exam 2 Narrative: General: Patient is awake and alert. Head: Normocephalic. Atraumatic. EOM intact. Neck: No JVD. Cardiovascular: RRR. No gallops. No murmurs. Lungs: Clear to auscultation, no use of accessory muscles, no crackles or wheezes. Skin: No jaundice. No rashes. Abdomen: Hypoactive bowel sounds. Tenderness palpation in the periumbilical region.. Genito Urinary: Genital exam not performed since complaints not related. Rectal: Rectal exam not performed since no symptoms indicated blood loss. Extremities: No cyanosis or clubbing. Musculoskeletal: No swollen or erythematous joints. Neurological: Moves all 4 extremities. No myoclonus. Data 03/08/24 04:19 03/08/24 04:19 A&P Assessment and plan (1) Small bowel obstruction: General surgery consulted, appreciate recommendations Analgesics as needed Antiemetics as needed Start IV fluids NG tube to be placed Bowel rest Serial abdominal exams (2) Atrial flutter: Hold therapeutic anticoagulation in case patient needs surgery Patient is on Cardizem 120 mg extended release daily, will be held due to n.p.o. and NG tube Consider scheduled IV rate control medication Telemetry monitoring Qualifiers: Atrial flutter type: atypical Qualified Code(s): I48.4 - Atypical atrial flutter (3) Diabetes mellitus: Patient is n.p.o. 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 Diabetes mellitus type: t ype 2 Qualified Code(s): E11.9 - Type 2 diabetes mellitus without complications (4) COPD (chronic obstructive pulmonary disease): Not in acute exacerbation Breathing treatments as needed Qualifiers: COPD type: unspecified COPD Qualified Code(s): J44.9 - Chronic obstructive pulmonary disease, unspecified (5) HTN (hypertension): Hold oral medications due to small bowel obstruction IV hydralazine as needed Qualifiers: Hypertension type: primary hypertension Qualified Code(s): I10 - Essential (primary) hypertension Plan DVT prophylaxis: Lovenox CODE STATUS: Full code Attestations 2 Medical Necessity Statement*: Patient presents with abdominal pain, found to have small bowel obstruction in the setting of multiple prior abdominal surgeries with expected hospitalization to cross 2 midnights for bowel rest, analgesics, antiemetics, general surgery evaluation, IV fluids, and supportive care. Coding Level of Care Code Acute Code for [facility] Diagnoses Small bowel obstruction K56.609 Atypical atrial flutter I48.4 Atrial flutter type: atypical Type 2 diabetes mellitus without complication, without long-term current use of insulin E11.9 Diabetes mellitus complication status: without complication Diabetes mellitus funeral service apprentice insulin use: without correction use Diabetes mellitus type: type 2 Chronic obstructive pulmonary disease, unspecified COPD type J44.9 COPD type: unspecified COPD Primary hypertension I10 Hypertension type: primary hypertension
--- NOTE | 2024-03-08 06:33 | XRR_ITS ---
PROCEDURE INFORMATION: Exam: XR Chest Exam date and time: 03/08/2024 6:37 AM Age: 73 years old Clinical indication: Device placement; Ng tube; Prior surgery; Surgery date: 6+ months; Surgery type: Peterson mast; Additional info: Ng tube placement TECHNIQUE: Imaging protocol: Radiologic exam of the chest. Views: 1 view. COMPARISON: CR XR chest 1V portable [id number] 02/14/2024 12:13 PM FINDINGS: Tubes, catheters and devices: There is a nasogastric tube with its tip above the hemidiaphragm likely within the distal esophagus. Lungs: The included lungs are normally aerated. Pleural spaces: Unremarkable. No pleural effusion. No pneumothorax. Heart/Mediastinum: The heart is slightly enlarged. Bones/joints: Unremarkable. XR/XR chest 1V portable [id number] IMPRESSION: 1. Cardiomegaly. 2. Nasogastric tube with its tip above the diaphragm likely within the distal esophagus.
[2024-03-08] MEDS: enoxaparin 40 mg/0.4 mL Syringe SUBCUT (07:39)
[2024-03-08] MEDS: sodium chloride 0.9% 1,000 ML 110 ML IV (07:39)
[2024-03-08] MEDS: morphine 4 mg/mL SDV 1 mL 2 MG IVP (08:36)
--- NOTE | 2024-03-08 08:40 | P.EN_ITS ---
Event Note Event Note: This morning patient is complaining of pain around her hiatal hernia area No active emesis I reviewed x-ray which is showing tip of the NG tube in distal esophagus I have called the surgeon and she asked me to place NG tube and get another x- ray Hemoglobin has been stable there is no decrease in blood pressure there was concern for intraluminal blood on the CT scan Patient's Eliquis has been put on hold Change IV fluids from normal saline to D5 saline 100 mL/h She is not able to eat by tomorrow we will start PPN No passage of gas, no bowel movement yet Last meal was 9 PM yesterday
--- NOTE | 2024-03-08 08:48 | ECG_ITS ---
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 Measurements Intervals [place] Rate: 65 P: -8 LA: 175 QRS: 20 QRSD: 88 T: 68 QT: 410 QTc: 429 Interpretive Statements SINUS RHYTHM LOW QRS VOLTAGE [QRS DEFLECTION < 0.5/1.0 mV IN LIMB/CHEST LEADS] Compared to ECG 02/15/2024 02:24:26 Myocardial infarct finding no longer present Electronically Signed On 03-08-2024 20:10:59 CDT by Brice Murray M.D. [id number]
--- NOTE | 2024-03-08 09:30 | XRR_ITS ---
PROCEDURE INFORMATION: Exam: XR Chest Exam date and time: 03/08/2024 9:01 AM Age: 73 years old Clinical indication: Device placement; Ng tube; Prior surgery; Surgery date: 6+ months; Surgery type: Peterson mast; Additional info: Ng adjusted TECHNIQUE: Imaging protocol: Radiologic exam of the chest. Views: 1 view. COMPARISON: CR (CHEST, ) 03/08/2024 6:37 AM FINDINGS: Tubes, catheters and devices: There is a nasogastric tube/Dobbhoff tube with its tip at the level of the GE junction. Lungs: Unremarkable. No consolidation. Pleural spaces: Unremarkable. No pleural effusion. No pneumothorax. Heart/Mediastinum: The heart is slightly enlarged. There is calcified plaque involving the aorta. Bones/joints: Unremarkable. XR/XR chest 1V portable [id number] IMPRESSION: 1. Nasogastric tube with its tip at the level of the GE junction. 2. Cardiomegaly.
[2024-03-08] MEDS: dextrose 5%-sod chloride 0.9% 1,000 ML 100 ML IV (09:34)
--- NOTE | 2024-03-08 10:13 | P.CONIM_ITS ---
Providers/Reason For Consult 2 Consulting Physician/Specialty*: General surgery Raphael Chris MD Reason for Consult*: partial SBO Requesting Physician: Lj Benito MD hospitalist Attending Physician: Allegra Morales MD Primary Care Provider: Lorena Jackson MD History of Present Illness History of Present Illness Maida Shelton is a 73 year old female who has had 4 ventral hernia repairs with mesh with last one in [place] in 2019. She had sleeve gastrectomy done in 2018 to lose weight in anticipation of the hernia repair in [place]. She has been hospitalized several times in past and has had NG tube decompression but not since her sleeve gastrectomy. She has had crampy pain in epigastric large hernia and some nausea but can't really vomits. She is scheduled to see GI because she has been having chest pain and had negative angiogram by her report during last few months. She is on chronic narcotics for fibromyalgia. She normally does not have BM daily and takes magnesium for legs and to help with stools. CT showing possible transition point near ileum and not at hernia. She denies any F/C/S. Review of Systems 2 Narrative: Constitutional: denies rigors, singnificant weight gain, increased appetite HEENT: denies chronic cough, blurry vision, excessive tearing, eye pain, flashing lights, odynophagia, painful mastication, change in voice, change in taste, chronic sore throat, hypersalivation Heart: denies racing heart, palpitations, othropnea, PND Lungs: denies hemoptysis, pain with deep inspiration, chronic bronchitis GI: denies hematemesis, hematochezia, dysphagia, tenesmus : denies polyuria, hematuria, painful micturation Musculoskeletal: denies hemarthrosis, Muscle wasting, change in amubation Neuro: denies new onset syncope, dysesthesia, dysequilibrium, ptosis eyelid or face SKin: denies new onset hyperalgia, new rash new cyanosis Endocrine: denies new polyuria, polydipsia, polyphagia, heat intolerance, excessive energy Hem/Onc: denies new petechiae, swollen glands, new excessive epstaxis Psych: denies racing thought Medications/Allergies Home Medications Medication Instructions Recorded Confirmed Last Taken Type ezetimibe 10 mg tablet (Zetia) 10 mg PO BEDTIME 11/16/19 03/08/24 03/07/24 20:00 History fluticasone propionate 50 1 spray intranasal DAILY PRN 11/16/19 03/04/24 Unknown History mcg/actuation nasal ALLERGIES spray,suspension (Flonase Allergy Relief) levothyroxine 125 mcg capsule 125 mcg PO DAILY 11/16/19 03/08/24 03/07/24 06:30 History montelukast 10 mg tablet 10 mg PO BEDTIME 11/16/19 03/08/24 03/07/24 20:00 History multivitamin 1 tab PO DAILY 11/16/19 03/04/24 02/13/24 History calcium carb,cit 315 mg-vitamin D3 1 tab PO DAILY 11/10/21 03/08/24 03/07/24 20:00 History 250 unit-phytosterols 200 mg tablet hydrocodone 10 mg-acetaminophen 1 tab PO Q6H PRN Pain 11/10/21 03/08/24 03/08/24 02:00 History 325 mg tablet omega-3 fatty acids-fish oil 684 1 cap PO DAILY 11/10/21 03/08/24 03/07/24 08:00 History mg-1,200 mg capsule,delayed release aripiprazole 2 mg tablet (Abilify) 2 mg PO BID 06/05/22 03/08/24 03/07/24 20:00 History magnesium oxide 400 mg (241.3 mg 400 mg PO BEDTIME 06/05/22 03/08/24 03/07/24 20:00 History magnesium) tablet (MagOx) apixaban 5 mg tablet (Eliquis) 5 mg PO BID #60 tabs 05/14/23 03/08/24 03/07/24 20:00 Rx ferrous sulfate 325 mg (65 mg 325 mg PO DAILY 06/04/23 03/08/24 02/13/24 History iron) tablet (Feosol) metoclopramide HCl 5 mg tablet 5 mg PO DAILY PRN Abdominal 06/04/23 03/08/24 03/08/24 01:30 History (Reglan) Discomfort pantoprazole 40 mg granules 40 mg PO BID 06/04/23 03/08/24 03/07/24 20:00 History delayed-release for susp in packet (Protonix) sucralfate 1 gram tablet (Carafate) 1 g PO QID PRN UPSET STOMACH 06/04/23 03/08/24 03/01/24 History nitroglycerin 0.4 mg sublingual 0.4 mg sublingual Q5M PRN chest 12/17/23 03/08/24 03/04/24 Rx tablet (Nitrostat) pain #25 tabs albuterol sulfate 90 mcg/actuation 2 puff inhalation Q6H PRN 02/14/24 03/04/24 Unknown History aerosol inhaler Shortness Of Breath cholecalciferol (vitamin D3) 25 25 mcg PO DAILY 02/14/24 03/08/24 03/07/24 08:00 History mcg (1,000 unit) tablet (Vitamin D3) coenzyme Q10 30 mg capsule 30 mg PO DAILY 02/14/24 03/08/24 03/07/24 08:00 History diltiazem HCl 120 mg 120 mg PO BEDTIME 02/14/24 03/08/24 03/07/24 20:00 History capsule,extended release 24 hr duloxetine 20 mg capsule,delayed 20 mg PO BEDTIME 02/14/24 03/08/24 03/07/24 20:00 History release duloxetine 60 mg capsule,delayed 60 mg PO BEDTIME 02/14/24 03/08/24 03/07/24 20:00 History release fluoride (sodium) 1.1 % dental 1 applic PO DAILY 02/14/24 03/04/24 Unknown History cream (Denta 5000 Plus) gabapentin 300 mg capsule 600 mg PO QPM 02/14/24 03/08/24 03/07/24 20:00 History methocarbamol 500 mg tablet 125 mg PO Q6H PRN MUSCLE SPASM 02/14/24 03/08/24 03/04/24 History sertraline 50 mg tablet (Zoloft) See Rx Instructions .Route 02/16/24 03/08/24 03/07/24 20:00 Rx .COMPLEX #11 tabs albuterol sulfate 90 mcg/actuation 2 puff inhalation QID 03/08/24 03/08/24 02/06/24 History aerosol inhaler (Ventolin HFA) isosorbide mononitrate 30 mg 15 mg PO DAILY PRN Chest Pain 03/08/24 03/08/24 03/04/24 History tablet,extended release 24 hr naproxen sodium 220 mg capsule 220 mg PO BID PRN arthritis 03/08/24 03/08/24 03/07/24 20:00 History Allergies Allergy/AdvReac Type Severity Reaction Status Date / Time Sulfa (Sulfonamide Allergy Unknown Unknown Verified 03/04/24 12:44 Antibiotics) Current Medications Generic Name Dose Route Start Last Admin Trade Name Freq PRN Reason Stop Dose Admin Enoxaparin Sodium 40 mg 03/08/24 07:06 03/08/24 07:39 Enoxaparin 40 Mg/0.4 Ml Syringe SUBCUT 40 mg Q24H GENESIS Administration Dextrose/Sodium Chloride 1,000 mls @ 100 mls/hr 03/08/24 08:45 03/08/24 09:34 Dextrose 5%-Sod Chloride 0.9% IV 100 mls/hr .Q10H GENESIS Administration Insulin Human Lispro 0 unit 03/08/24 07:06 03/08/24 09:26 Insulin Lispro 100 Unit/1 Ml SUBCUT Not Given Q6H GENESIS Protocol Pantoprazole Sodium 40 mg 03/08/24 07:06 03/08/24 09:31 Pantoprazole 40 Mg Sdv IVP Not Given Q12H GENESIS PFSH Acute 2 PFSH: Medical History (Updated 03/08/24 @ 06:20 by Lj Benito MD) Acute diverticulitis Hypothyroidism Chronic back pain Depression with anxiety GERD (gastroesophageal reflux disease) IBS (irritable bowel syndrome) COPD (chronic obstructive pulmonary disease) Diabetes mellitus History of TIA (transient ischemic attack) Fibromyalgia History of breast cancer HTN (hypertension) Atrial flutter Hypercholesterolemia Surgical History S/P knee replacement Bilateral S/P cholecystectomy S/P hernia repair S/P hysterectomy S/P mastectomy S/P tubal ligation S/P tonsillectomy S/P cataract extraction History of colonoscopy History of bilateral mastectomy 1988 History of tonsillectomy S/P TRAM (transverse rectus abdominis muscle) flap breast reconstruction 1989 History of sleeve gastrectomy Family History Mother Bleeding disorder CAD (coronary artery disease), Onset Age: 70 Family/Other Cancer Diabetes Brother Diabetes Daughter Lung disease Daughter Lung disease Father Stroke Other Heart disease Denies family history of Clotting disorder Dementia Chronic kidney disease (CKD) Suicide Anesthesia complication Social History Smoking and tobacco/nicotine status: unknown if used tobacco/nicotine Alcohol intake: never Substance/Drug Use: never Vitals/I&O/Wt Last Vital Signs Temp 97.3 F L 03/08/24 07:17 Pulse 70 03/08/24 07:17 Resp 29 H 03/08/24 08:36 BP 141/79 03/08/24 07:17 Pulse Ox 95 03/08/24 07:17 O2 Del Method Room Air 03/08/24 07:17 03/07/24 03/08/24 03/08/24 22:59 06:59 14:59 Intake Total 1242 / 1242 Balance 1242 / 1242 Weight last 48 hrs Weight 245 lb Physical Exam 2 Narrative: Patient is a well developed well nourished and in NAD and is afebrile with vitals stable and is answering questions appropriately with a normal affect and is alert and oriented x3 HEENT: normocephalic with normal external ears and nonicteric, oral mucosa moist and dentition normal for age, trachea midline with no large masses visualized Heart: RRR, no gallops murmurs or rubs, normal PMI with no thrills Lungs: normal excursions, no loud audible wheezing, no subcutaneous emphysema Abdomen: nondistended, no gross hepatosplenomegaly, no masses, no rigidity or rebound, no loud borborygmi, large epigastric hernia Neuro: nonfocal, BRANDON, grossly normal sensation Musculoskeletal: good muscle tone, no fasciculations, normal gait Skin: pink warm and dry with no rashes or ecchymosis Vascular: good radial pulses, no ulceration, less than 2 second capillary refill in hand : deferred Data 03/08/24 04:19 03/08/24 04:19 A&P Assessment and plan (1) Small bowel obstruction: Plan Patient had attempt of NG tube placement in ER but did not tell them she has had a sleeve gastrectomy before and NG coiled in esophagus. NG removed and she does not have chest pain currently but she does have chronic chest pain and had negative angiogram and to see GI for EGD in near future. Will monitor her symptoms. If worsens consider chest CT. Will work on cleaning her colon out from below. She has a lot of stool in sigmoid/rectum and transverse colon in hernia. May start cleaning her out from above tomorrow if she does not worsening chest pain symptoms. Coding Level of Care Code 85582 Diagnoses Small bowel obstruction K56.609
[2024-03-08 11:10] LABS: Basophils # 0.1 10^3/uL (0.0-0.1); Basophils % 0.8 %; Eosinophils # 0.2 10^3/uL (0.0-0.8); Eosinophils % 2.7 %; Hematocrit 37.3 % (36-47); Lymphocytes # 0.9 10^3/uL (0.8-4.8); Mean Corpuscular HGB Conc 30.8 g/dL (30-55); Mean Corpuscular Hemoglobin 25.6 pg (27-33); Mean Corpuscular Volume 83.1 fl (85-98); Monocytes # 0.4 10^3/uL (0.2-0.9); Monocytes % 5.7 %; Neutrophils # 5.15 10^3/uL (1.8-7.7); Neutrophils % 77.6 %; Nucleated Red Blood Cells % 0 %; Platelet Count 276 10^3/cmm (157-399); Red Blood Count 4.49 10^6/uL (3.85-5.65); Red Cell Distribution Width 15.5 % (12.1-15.1); White Blood Count 6.63 10^3/uL (3.29-11.43)
[2024-03-08] MEDS: mineral oil ENEMA 133 mL PR (11:22)
[2024-03-08] MEDS: glycerin adult supp 1 EACH PR ×2 (11:22→18:16)
[2024-03-08 11:28] LABS: Alanine Aminotransferase 13 U/L (0-33); Albumin Level 3.9 g/dL (3.5-5.2); Alkaline Phosphatase 96 U/L (35-105); Anion Gap 17.1 (5-19); Aspartate Amino Transferase 17 U/L (0-32); Blood Urea Nitrogen 13 mg/dL (8-23); Calcium 8.9 mg/dL (8.5-10.5); Carbon Dioxide 23 mmol/L (22-29); Chloride 101 mmol/L (98-107); Creatinine Clr Calc Pharmacy 81.4909; Globulin 2.7 g/dL (1.3-4.6); Glucose 99 mg/dL (65-115); Magnesium 1.9 mg/dL (1.7-2.3); Osmolality Calculated 284 mOsm/kg (285-295); Potassium 4.1 mmol/L (3.5-5.1); Sodium 137 mmol/L (136-145); Total Bilirubin 0.4 mg/dL (0.15-1.2); Total Protein 6.6 g/dL (6.6-8.7)
[2024-03-08 11:40] LABS: Glucose Point of Care 95 mg/dL (70-110)
[2024-03-08] MEDS: AA-Dex 4.25%-5% w/Lytes 1,000 ML with multivitamin inj 10 ML 42 ML IV (12:04)
[2024-03-08 17:11] LABS: Glucose Point of Care 109 mg/dL (70-110)
[2024-03-08] MEDS: Fleet Enema 133 mL Enema PR (18:15)
[2024-03-08] MEDS: pantoprazole 40 mg SDV IVP (20:27)
[2024-03-08 20:34] LABS: Glucose Point of Care 105 mg/dL (70-110)
[2024-03-09] VITALS (9 sets, daily range): BP systolic 129–156; BP diastolic 70–85; PULSE 69–89; RESP 16–21; TEMP 36.4–36.9; O2SAT 90–96
[2024-03-09 01:29] LABS: Glucose Point of Care 142 mg/dL (70-110)
[2024-03-09] MEDS: morphine 4 mg/mL SDV 1 mL IVP (01:33)
[2024-03-09] MEDS: insulin lispro 100 unit/1 mL SUBCUT ×2 (01:33→09:59)
[2024-03-09 04:30] LABS: Basophils # 0.1 10^3/uL (0.0-0.1); Basophils % 0.9 %; Eosinophils # 0.2 10^3/uL (0.0-0.8); Eosinophils % 3.5 %; Hematocrit 32.4 % (36-47); Lymphocytes # 0.6 10^3/uL (0.8-4.8); Lymphocytes % 10.3 %; Mean Corpuscular HGB Conc 30.9 g/dL (30-55); Mean Corpuscular Hemoglobin 25.8 pg (27-33); Mean Corpuscular Volume 83.5 fl (85-98); Mean Platelet Volume 10.5 fL (7.4-10.4); Monocytes # 0.4 10^3/uL (0.2-0.9); Monocytes % 7.4 %; Neutrophils # 4.36 10^3/uL (1.8-7.7); Neutrophils % 77.4 %; Nucleated Red Blood Cells % 0 %; Platelet Count 254 10^3/cmm (157-399); Red Blood Count 3.88 10^6/uL (3.85-5.65); Red Cell Distribution Width 15.7 % (12.1-15.1); White Blood Count 5.64 10^3/uL (3.29-11.43)
[2024-03-09 04:53] LABS: Alanine Aminotransferase 10 U/L (0-33); Albumin Level 3.5 g/dL (3.5-5.2); Alkaline Phosphatase 83 U/L (35-105); Aspartate Amino Transferase 16 U/L (0-32); Blood Urea Nitrogen 12 mg/dL (8-23); Calcium 8.7 mg/dL (8.5-10.5); Carbon Dioxide 27 mmol/L (22-29); Chloride 102 mmol/L (98-107); Creatinine Clr Calc Pharmacy 82.4517; Globulin 2.3 g/dL (1.3-4.6); Glucose 106 mg/dL (65-115); Magnesium 1.8 mg/dL (1.7-2.3); Osmolality Calculated 290 mOsm/kg (285-295); Phosphorus 4.7 mg/dL (2.5-4.5); Sodium 140 mmol/L (136-145); Total Bilirubin 0.4 mg/dL (0.15-1.2); Total Protein 5.8 g/dL (6.6-8.7)
[2024-03-09 04:54] LABS: Anion Gap 15.2 (5-19); Potassium 4.2 mmol/L (3.5-5.1)
[2024-03-09] MEDS: pantoprazole 40 mg SDV IVP (09:59)
--- NOTE | 2024-03-09 11:05 | P.PN_ITS ---
Subjective 2 Subjective: Patient had a small BM today Start PPN and D5 Start clear liquid diet No active nausea or vomiting Patient did well in last 24 hours No active chest pain Patient has an appointment to follow-up with GI doctor at [facility] for hiatal hernia surgery valuation Vitals/I&O/Wt Last Vital Signs Temp 98.4 F 03/09/24 08:00 Pulse 82 03/09/24 09:00 Resp 16 03/09/24 09:00 BP 153/83 03/09/24 08:00 Pulse Ox 93 03/09/24 09:00 O2 Del Method Room Air 03/09/24 09:00 03/08/24 03/09/24 03/09/24 22:59 06:59 14:59 Intake Total 1000 / 2242 1370 / 1370 Output Total 1300 / 1700 Balance -300 / 542 1370 / 1370 Weight last 48 hrs Weight 112.446 kg Weight 113.489 kg Weight 111.13 kg Physical Exam 2 Narrative: Pleasant cooperative Morbidly obese Hiatal hernia, epigastric hernia soft to palpate Bowel sound present Awake and alert No signs of dehydration Pleasant cooperative No active nausea vomiting Nonfocal neuroexam No active chest pain Data 03/09/24 03:31 03/09/24 03:31 A&P Assessment and plan (1) COPD (chronic obstructive pulmonary disease): Qualifiers: COPD type: unspecified COPD Qualified Code(s): J44.9 - Chronic obstructive pulmonary disease, unspecified (2) Small bowel obstruction: (3) Diabetes mellitus: Qualifiers: Diabetes mellitus complication status: without complication Diabetes mellitus senior living insulin use: without termination clerk use Diabetes mellitus type: t ype 2 Qualified Code(s): E11.9 - Type 2 diabetes mellitus without complications (4) Atrial flutter: Qualifiers: Atrial flutter type: atypical Qualified Code(s): I48.4 - Atypical atrial flutter (5) HTN (hypertension): Qualifiers: Hypertension type: primary hypertension Qualified Code(s): I10 - Essential (primary) hypertension Plan SBO: Positive bowel sounds No active nausea vomiting NGT was removed when we learned about her gastric sleeve procedure Had a small bowel movement today Started clear liquids Patient was given enema yesterday Will start her back on A-fib medications such as Eliquis and diltiazem For fibromyalgia started gabapentin as well If she keeps doing well we may be able to discharge her by tomorrow She has an appointment to see GI Dr. Garcia for hiatal hernia evaluation Full code Discontinue PPN and D5 For hypertension optimize medications and added p.o. regimen Attestations 2 Medical Necessity Statement*: Discharge likely by tomorrow Diagnoses Chronic obstructive pulmonary disease, unspecified COPD type J44.9 COPD type: unspecified COPD Small bowel obstruction K56.609 Type 2 diabetes mellitus without complication, without long-term current use of insulin E11.9 Diabetes mellitus complication status: without complication Diabetes mellitus termination clerk insulin use: without senior living use Diabetes mellitus type: type 2 Atypical atrial flutter I48.4 Atrial flutter type: atypical Primary hypertension I10 Hypertension type: primary hypertension
[2024-03-09] MEDS: magnesium citrate Btl 296 mL 150 ML PO (11:55)
[2024-03-09] MEDS: apixaban 5 mg Tablet PO (11:57)
--- NOTE | 2024-03-09 15:34 | PM.DCS ---
Discharge Providers Date of Admission: 03/08/24 06:14 Date of Discharge: March 09, 2024 Attending Provider at Admission: Lj Benito MD Attending Provider at Discharge: Allegra Morales MD Primary Care Provider: Lorena Jackson MD Diagnoses at Discharge Discharge Diagnosis (1) COPD (chronic obstructive pulmonary disease): Status: Acute Qualifiers: COPD type: unspecified COPD Qualified Code(s): J44.9 - Chronic obstructive pulmonary disease, unspecified (2) Small bowel obstruction: Status: Acute (3) Diabetes mellitus: Status: Acute Qualifiers: Diabetes mellitus complication status: without complication Diabetes mellitus emt intermediate insulin use: without emt intermediate use Diabetes mellitus type: type 2 Qualified Code(s): E11.9 - Type 2 diabetes mellitus without complications (4) Atrial flutter: Status: Acute Qualifiers: Atrial flutter type: atypical Qualified Code(s): I48.4 - Atypical atrial flutter (5) HTN (hypertension): Status: Acute Qualifiers: Hypertension type: primary hypertension Qualified Code(s): I10 - Essential (primary) hypertension Reason for Visit Reason for Visit: Abd pain Hospital Course Hospital Course 73-year-old female with multiple abdominal surgeries including gastric sleeve, cholecystectomy, takes opioids and anxiolytics for her fibromyalgia, she has hiatal hernia and takes medications for recurrent chest pains as well related to hiatal hernia, she has been referred to [facility] for hiatal hernia evaluation, this time she was admitted for management evaluation of small bowel obstruction, we did not continue NG tube which was placed in the ER, she was managed conservatively, she showed signs of constipation which got relieved with use of enema, patient had a small bowel movement, will give her 1 dose of mag citrate which was followed by a large BM. Patient remained hemodynamically stable she was given PPN for 24 hours as well. Her abdominal exam is benign no signs of peritonitis, she has positive bowel sounds, has had 2 bowel movements in the hospital. Physical Exam Narrative: Awake and alert GCS 15 abdomen soft Pleasant cooperative Discharge Data Studies Completed and Pending Completed Studies During Hospitalization Category Date Time Status CT abdomen pelvis w con* [id number] Urgent Cat Scan 03/08/24 05:08 Completed CXRP [XR chest 1V portable [id number]] Routine Exams 03/08/24 06:33 Completed XR chest 1V portable [id number] Routine Exams 03/08/24 09:30 Completed Pending at discharge Category Date Time Status Basic Metabolic Panel AM LABS Lab 03/10/24 04:00 Ordered Complete Blood Count w/Auto AM LABS Lab 03/10/24 04:00 Ordered Radiology Impressions Abdomen/Pelvis CT 03/08/24 05:08 IMPRESSION: 1. Findings compatible with a small bowel obstruction. 2. Small foci of hyperdense material within the lumen of the small bowel could represent ingested material or possibly even focal areas of hemorrhage. 3. Diverticulosis. 4. Right upper abdominal wall hernia defect. COMMENTS: Consistent with the [employer]'s Incidental Findings Committee white paper (J Am Mathew Radiol 2018): Any incidental renal lesion less than 1 cm or classified as too small to characterize, or any incidental cystic renal lesion characterized as simple-appearing, is likely benign. No follow-up imaging is recommended for these lesions per consensus recommendations based on imaging criteria. ADDENDUM: 03/08/24 0554 COMMENT: THIS REPORT CONTAINS FINDINGS THAT MAY BE CRITICAL TO PATIENT CARE. The exam findings were verbally communicated by me to ELENO GAR via telephone conference at 5:53 AM CDT on 03/08/2024. The findings were acknowledged and understood. Chest X-Ray 03/08/24 09:30 IMPRESSION: 1. Nasogastric tube with its tip at the level of the GE junction. 2. Cardiomegaly. Laboratory Results WBC 5.64 10^3/uL (3.29-11.43) 03/09/24 03:31 RBC 3.88 10^6/uL (3.85-5.65) 03/09/24 03:31 Hgb 10.00 g/dL (11.27-16.99) L 03/09/24 03:31 Hct 32.4 % (36-47) L 03/09/24 03:31 MCV 83.5 fl (85-98) L 03/09/24 03:31 MCH 25.8 pg (27-33) L 03/09/24 03:31 MCHC 30.9 g/dL (30-55) 03/09/24 03:31 RDW 15.7 % (12.1-15.1) H 03/09/24 03:31 Plt Count 254 10^3/cmm (157-399) 03/09/24 03:31 MPV 10.5 fL (7.4-10.4) H 03/09/24 03:31 Neut % (Auto) 77.4 % 03/09/24 03:31 Lymph % (Auto) 10.3 % 03/09/24 03:31 Story % (Auto) 7.4 % 03/09/24 03:31 Eos % (Auto) 3.5 % 03/09/24 03:31 Baso % (Auto) 0.9 % 03/09/24 03:31 Neut # (Auto) 4.36 10^3/uL (1.8-7.7) 03/09/24 03:31 Lymph # (Auto) 0.6 10^3/uL (0.8-4.8) L 03/09/24 03:31 Story # (Auto) 0.4 10^3/uL (0.2-0.9) 03/09/24 03:31 Eos # (Auto) 0.2 10^3/uL (0.0-0.8) 03/09/24 03:31 Baso # (Auto) 0.1 10^3/uL (0.0-0.1) 03/09/24 03:31 Nucleated RBC % (auto) 0 % 03/09/24 03:31 Nucleated RBCs # 0.0 /100WBC 03/09/24 03:31 Sodium 140 mmol/L (136-145) 03/09/24 03:31 Potassium 4.2 mmol/L (3.5-5.1) 03/09/24 03:31 Chloride 102 mmol/L (98-107) 03/09/24 03:31 Carbon Dioxide 27 mmol/L (22-29) 03/09/24 03:31 Anion Gap 15.2 (5-19) 03/09/24 03:31 BUN 12 mg/dL (8-23) 03/09/24 03:31 Creatinine 0.7 mg/dL (0.5-0.9) 03/09/24 03:31 GFR Calculation Not Reportable 03/09/24 03:31 Glucose 106 mg/dL (65-115) 03/09/24 03:31 POC Glucose 142 mg/dL (70-110) H 03/09/24 01:04 Calculated Osmolality 290 mOsm/kg (285-295) 03/09/24 03:31 Calcium 8.7 mg/dL (8.5-10.5) 03/09/24 03:31 Phosphorus 4.7 mg/dL (2.5-4.5) H 03/09/24 03:31 Magnesium 1.8 mg/dL (1.7-2.3) 03/09/24 03:31 Total Bilirubin 0.4 mg/dL (0.15-1.2) 03/09/24 03:31 AST 16 U/L (0-32) 03/09/24 03:31 ALT 10 U/L (0-33) 03/09/24 03:31 Alkaline Phosphatase 83 U/L (35-105) 03/09/24 03:31 C-Reactive Protein 3.0 mg/L (0.0-4.9) 03/08/24 04:19 Total Protein 5.8 g/dL (6.6-8.7) L 03/09/24 03:31 Albumin 3.5 g/dL (3.5-5.2) 03/09/24 03:31 Globulin 2.3 g/dL (1.3-4.6) 03/09/24 03:31 Lipase 39 U/L (13-60) 03/08/24 04:19 Urine Color Yellow (Yellow) 03/08/24 05:07 Urine Appearance Clear (CLEAR) 03/08/24 05:07 Urine pH 6.5 (5-7) 03/08/24 05:07 Ur Specific [place] 1.024 (1.005-1.030) 03/08/24 05:07 Urine Protein Negative (Negative) 03/08/24 05:07 Urine Glucose (UA) Negative (Normal) 03/08/24 05:07 Urine Ketones Trace (Negative) 03/08/24 05:07 Urine Blood Negative (Negative) 03/08/24 05:07 Urine Nitrate Negative (Negative) 03/08/24 05:07 Urine Bilirubin Negative (Negative) 03/08/24 05:07 Urine Urobilinogen 1.0 mg/dL (Negative) 03/08/24 05:07 Ur Leukocyte Esterase Trace (Negative) A 03/08/24 05:07 Urine RBC 3-5 /hpf (0-2) 03/08/24 05:07 Urine WBC 0-5 /hpf (0-5) 03/08/24 05:07 Ur Squamous Epith Cells 0-5 /hpf (0-5) 03/08/24 05:07 Amorphous Sediment Not Reportable 03/08/24 05:07 Urine Bacteria None seen /hpf (NONE) 03/08/24 05:07 Hyaline Casts 0.40 /lpf 03/08/24 05:07 Vitals Last Vital Signs Temp 98.1 F 03/09/24 12:00 Pulse 74 03/09/24 12:00 Resp 17 03/09/24 12:00 BP 148/85 03/09/24 12:00 Pulse Ox 96 03/09/24 12:00 O2 Del Method Room Air 03/09/24 12:00 Discharge Plan Discharge Patient Disposition: Home Condition: Stable Prescriptions: Continued ezetimibe [Zetia] 10 mg tablet 10 mg PO BEDTIME multivitamin Tablet 1 tab PO DAILY fluticasone propionate [Flonase Allergy Relief] 50 mcg/actuation spray,suspension 1 spray INTRANASAL DAILY PRN (Reason: ALLERGIES) montelukast 10 mg tablet 10 mg PO BEDTIME levothyroxine 125 mcg capsule 125 mcg PO DAILY aripiprazole [Abilify] 2 mg tablet 2 mg PO BID magnesium oxide [MagOx] 400 mg (241.3 mg magnesium) tablet 400 mg PO BEDTIME pantoprazole [Protonix] [address] for susp in packet 40 mg PO BID metoclopramide HCl [Reglan] 5 mg tablet 5 mg PO DAILY PRN (Reason: Abdominal Discomfort) ferrous sulfate [Feosol] 325 mg (65 mg iron) tablet 325 mg PO DAILY sucralfate [Carafate] 1 gram tablet 1 g PO QID PRN (Reason: UPSET STOMACH) Eliquis 5 mg tablet 5 mg PO BID Qty: 60 11RF nitroglycerin [Nitrostat] 0.4 mg tablet, sublingual 0.4 mg SUBLINGUAL Q5M PRN (Reason: chest pain) Qty: 25 3RF methocarbamol 500 mg tablet 125 mg PO Q6H PRN (Reason: MUSCLE SPASM) gabapentin 300 mg capsule 600 mg PO QPM albuterol sulfate 90 mcg/actuation HFA aerosol inhaler 2 puff INHALATION Q6H PRN (Reason: Shortness Of Breath) duloxetine 20 mg capsule,delayed release(DR/EC) 20 mg PO BEDTIME Rx Instructions: ALONG WITH 60MG TO=80MG TOTAL duloxetine 60 mg capsule,delayed release(DR/EC) 60 mg PO BEDTIME Rx Instructions: ALONG WITH 20MG TO= 80MG TOTAL fluoride (sodium) [Denta 5000 Plus] 1.1 % cream 1 applic PO DAILY coenzyme Q10 30 mg Capsule 30 mg PO DAILY cholecalciferol (vitamin D3) [Vitamin D3] 25 mcg (1,000 unit) Tablet 25 mcg PO DAILY diltiazem HCl 120 mg capsule,extended release 24hr 120 mg PO BEDTIME sertraline [Zoloft] 50 mg tablet See Rx Instructions .ROUTE .COMPLEX Qty: 11 0RF Rx Instructions: 50mg at bedtime Imdur 30 mg Tablet Extended Release 24 Hr 15 mg PO DAILY PRN (Reason: Chest Pain) Ventolin HFA 90 mcg/actuation Hfa Aerosol Inhaler 2 puff INHALATION QID naproxen sodium 220 mg Capsule 220 mg PO BID PRN (Reason: arthritis) hydrocodone-acetaminophen 10-325 mg tablet 1 tab PO Q6H PRN (Reason: Pain) omega-3 fatty acids-fish oil 684-1,200 mg Capsule,Delayed Release(Dr/Ec) 1 cap PO DAILY calcium carb,[id number] 315-250-200 mg-unit-mg Tablet 1 tab PO DAILY Discharge Orders: Discharge Order (Routine); Ordered 03/09/24 Ordered By: Allegra Morales Referrals: Lorena Jackson MD [Primary Care Provider] - Patient Instructions: Opioid Safety Discharge Attestations Time Spent in Discharge Care*: other Quality Metrics Clinical Quality Measures [ No reported AMI, CVA or VTE this stay] Coding Level of Care Code Acute Code for g Fwd Diagnoses Chronic obstructive pulmonary disease, unspecified COPD type J44.9 COPD type: unspecified COPD Small bowel obstruction K56.609 Type 2 diabetes mellitus without complication, without long-term current use of insulin E11.9 Diabetes mellitus complication status: without complication Diabetes mellitus skilled nursing insulin use: without skilled nursing use Diabetes mellitus type: type 2 Atypical atrial flutter I48.4 Atrial flutter type: atypical Primary hypertension I10 Hypertension type: primary hypertension
[2024-03-09] MEDS: HYDROcodone-acetaminophen 10-325 mg Tablet 1 TAB PO (15:42)
[2024-03-10 18:23] LABS: Glucose Point of Care 92 mg/dL (70-110)
== END 2024-03-09 17:50 | disposition home or self-care (01) | DRG 389 ==
LOC: ER 06:08 → MEDSURG 06:15
PROVIDERS: Specialist; Admitting Provider Internal Medicine; Emergency Provider Emergency Medicine; PCP Family Medicine; Visit Provider Internal Medicine
DX: K56.609 Unspecified intestinal obstruction, unspecified as to partial versus complete obstruction (principal); I48.4 Atypical atrial flutter; J44.9 Chronic obstructive pulmonary disease, unspecified; E11.9 Type 2 diabetes mellitus without complications; I10 Essential (primary) hypertension; M79.7 Fibromyalgia; K44.9 Diaphragmatic hernia without obstruction or gangrene; F32.A Depression, unspecified; F41.9 Anxiety disorder, unspecified; K21.9 Gastro-esophageal reflux disease without esophagitis; K58.9 Irritable bowel syndrome, unspecified; E78.00 Pure hypercholesterolemia, unspecified; E03.9 Hypothyroidism, unspecified; Z98.84 Bariatric surgery status; Z79.01 Long term (current) use of anticoagulants; Z90.49 Acquired absence of other specified parts of digestive tract; Z79.891 Long term (current) use of opiate analgesic; Z86.73 Personal history of transient ischemic attack (TIA), and cerebral infarction without residual deficits; Z85.3 Personal history of malignant neoplasm of breast; Z98.890 Other specified postprocedural states
CPT/HCPCS: 36415; 36416; 71045; 74177; 80053; 81003; 81015; 82962; 83690; 83735; 84100; 85025; 86140; 93005; 96372; 96374; 96375; 99285; J1650; J1815; J2270; J2405; J2470; J7030; J7042; Q9967

== ENCOUNTER → 2024-05-05 09:43 | Outpatient (BNVA) | payer MEDICARE, MEDICAID, SELFPAY | PROVIDERS: PCP Family Medicine; Visit Provider Internal Medicine Cardiovascular Disease | DX: R07.9 Chest pain, unspecified (principal); E78.00 Pure hypercholesterolemia, unspecified; I48.4 Atypical atrial flutter; Z79.01 Long term (current) use of anticoagulants; E11.9 Type 2 diabetes mellitus without complications; R94.39 Abnormal result of other cardiovascular function study | CPT/HCPCS: 99214 ==

== ENCOUNTER 2024-07-02 08:58 | Emergency (ER) | payer MEDICARE, MEDICAID, SELFPAY ==
[2024-07-02] VITALS (11 sets, daily range): BP systolic 118–124; BP diastolic 62–76; PULSE 65–90; RESP 15–24; TEMP 36.7; O2SAT 91–95; BMI 39.9
--- NOTE | 2024-07-02 09:01 | XR_ITS ---
WS: [id number] Exam: XR chest 1V portable [id number] Date/Time of Exam: 07/02/2024 9:03 AM Reason For Exam: dyspnea/cough Comparison 03/08/2024. Consolidating infiltrate noted in the RIGHT upper lobe. LEFT lung is clear. No pleural effusions. Unr emarkable cardiomediastinal silhouette. Numerous surgical clips visualized over the RIGHT and LEFT ch est. XR/XR chest 1V portable [id number] IMPRESSION: 1. Consolidating RIGHT upper lobe pneumonia.
--- NOTE | 2024-07-02 09:02 | ECG_ITS ---
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 Measurements Intervals [place] Rate: 80 P: 68 MA: 204 QRS: 24 QRSD: 83 T: 67 QT: 361 QTc: 418 Interpretive Statements SINUS RHYTHM LOW QRS VOLTAGE [QRS DEFLECTION < 0.5/1.0 mV IN LIMB/CHEST LEADS] Compared to ECG 03/08/2024 08:56:54 No significant changes Electronically Signed On 07-03-2024 09:33:24 ORCHARDIST by Brice Murray M.D. [id number]
--- NOTE | 2024-07-02 09:02 | W.ED.GENADLT ---
HPI - General Adult General: Chief complaint: Shortness of Breath/Dyspnea Stated complaint: fever, body aches, sob x 3 days Time Seen by Provider: 07/02/24 09:00 History of Present Illness: 74-year-old female who presents to the emergency room with complaints of chest discomfort on the right side. She has fever body aches shortness of breath for the last 3 days. She had a episode of chest pain a few months ago resulted ultimately in an angiogram that she was told was negative. She having persistent chest pain that is worse with deep inspiration is very positional as well and we lay her down to examine her she relates it worsens. Patient states she has a nonproductive cough no hemoptysis no history of any PEs. Associated symptoms: Deny chest pain, dyspnea or rash Related Data Home Medications Medication Instructions Recorded Confirmed ezetimibe 10 mg tablet (Zetia) 10 mg PO BEDTIME 11/16/19 07/02/24 fluticasone propionate 50 1 spray intranasal DAILY PRN 11/16/19 07/02/24 mcg/actuation nasal ALLERGIES spray,suspension (Flonase Allergy Relief) levothyroxine 125 mcg capsule 125 mcg PO DAILY 11/16/19 07/02/24 montelukast 10 mg tablet 10 mg PO BEDTIME 11/16/19 07/02/24 multivitamin 1 tab PO DAILY 11/16/19 07/02/24 calcium 315 mg-vitamin D3 250 1 tab PO DAILY 11/10/21 07/02/24 unit-phytosterols 200 mg tablet hydrocodone 10 mg-acetaminophen 1 tab PO Q6H PRN Pain 11/10/21 07/02/24 325 mg tablet omega-3 fatty acids-fish oil 684 1 cap PO DAILY 11/10/21 07/02/24 mg-1,200 mg capsule,delayed release aripiprazole 2 mg tablet (Abilify) 2 mg PO BID 06/05/22 07/02/24 magnesium oxide 400 mg (241.3 mg 400 mg PO BEDTIME 06/05/22 07/02/24 magnesium) tablet (MagOx) ferrous sulfate 325 mg (65 mg 325 mg PO DAILY 06/04/23 07/02/24 iron) tablet (Feosol) metoclopramide HCl 5 mg tablet 5 mg PO DAILY PRN Abdominal 06/04/23 07/02/24 (Reglan) Discomfort pantoprazole 40 mg granules 40 mg PO BID 06/04/23 07/02/24 delayed-release for susp in packet (Protonix) sucralfate 1 gram tablet (Carafate) 1 g PO QID PRN UPSET STOMACH 06/04/23 07/02/24 cholecalciferol (vitamin D3) 25 25 mcg PO DAILY 02/14/24 07/02/24 mcg (1,000 unit) tablet (Vitamin D3) coenzyme Q10 30 mg capsule 30 mg PO DAILY 02/14/24 07/02/24 duloxetine 20 mg capsule,delayed 20 mg PO BEDTIME 02/14/24 07/02/24 release duloxetine 60 mg capsule,delayed 60 mg PO BEDTIME 02/14/24 07/02/24 release fluoride (sodium) 1.1 % dental 1 applic PO DAILY 02/14/24 07/02/24 cream (Denta 5000 Plus) gabapentin 300 mg capsule 600 mg PO QPM 02/14/24 07/02/24 methocarbamol 500 mg tablet 125 mg PO Q6H PRN MUSCLE SPASM 02/14/24 07/02/24 albuterol sulfate 90 mcg/actuation 2 puff inhalation QID 03/08/24 07/02/24 aerosol inhaler (Ventolin HFA) isosorbide mononitrate 30 mg 15 mg PO DAILY PRN Chest Pain 03/08/24 07/02/24 tablet,extended release 24 hr naproxen sodium 220 mg capsule 220 mg PO BID PRN arthritis 03/08/24 07/02/24 budesonide-formoterol HFA 160 2 puff inhalation BID 07/02/24 07/02/24 mcg-4.5 mcg/actuation aerosol inhaler (Symbicort) mirabegron 25 mg tablet,extended 25 mg PO DAILY 07/02/24 07/02/24 release 24 hr (Myrbetriq) sertraline 50 mg tablet (Zoloft) 50 mg PO QPM 07/02/24 07/02/24 Previous Rx's Medication Instructions Recorded nitroglycerin 0.4 mg sublingual 0.4 mg sublingual Q5M PRN chest 12/17/23 tablet (Nitrostat) pain #25 tabs apixaban 5 mg tablet (Eliquis) 5 mg PO BID #60 tabs 05/26/24 diltiazem HCl 120 mg 120 mg PO BEDTIME #90 caps 05/26/24 capsule,extended release 24 hr albuterol sulfate 90 mcg/actuation 2 inh inhalation Q4H PRN shortness 07/02/24 aerosol inhaler of breath or wheezing #18 grams levofloxacin 500 mg tablet 500 mg PO DAILY 7 days #7 tabs 07/02/24 Allergies Allergy/AdvReac Type Severity Reaction Status Date / Time Sulfa (Sulfonamide Allergy Unknown Unknown Verified 05/05/24 10:20 Antibiotics) Review of Systems Const: Denies: fever(s) or chills Card: Denies: chest pain Resp: Denies: dyspnea GI: Denies: abdominal pain : Denies: dysuria, urinary frequency or urinary urgency Musc: Denies: neck pain or back pain Skin/Breast: Denies: rash PFSH ED PFSH: Medical History Diabetes mellitus Atrial flutter Small bowel obstruction Acute diverticulitis Hypothyroidism Chronic back pain Depression with anxiety GERD (gastroesophageal reflux disease) IBS (irritable bowel syndrome) COPD (chronic obstructive pulmonary disease) History of TIA (transient ischemic attack) Fibromyalgia History of breast cancer HTN (hypertension) Hypercholesterolemia Surgical History S/P knee replacement Bilateral S/P cholecystectomy S/P hernia repair S/P hysterectomy S/P mastectomy S/P tubal ligation S/P tonsillectomy S/P cataract extraction History of colonoscopy History of bilateral mastectomy 1988 History of tonsillectomy S/P TRAM (transverse rectus abdominis muscle) flap breast reconstruction 1989 History of sleeve gastrectomy Family History Mother Bleeding disorder CAD (coronary artery disease), Onset Age: 70 Family/Other Cancer Diabetes Brother Diabetes Daughter Lung disease Daughter Lung disease Father Stroke Other Heart disease Hypercholesterolemia Denies family history of Clotting disorder Dementia Chronic kidney disease (CKD) Suicide Anesthesia complication Social History Smoking and tobacco/nicotine status: unknown if used tobacco/nicotine Alcohol intake: never Substance/Drug Use: never Physical Exam Const: COMMON NORMALS: no acute distress GENERAL APPEARANCE: cooperative and comfortable ORIENTATION/CONSCIOUSNESS: Yes awake, Yes oriented to person, Yes oriented to place and Yes oriented to time HENMT: COMMON NORMALS: normocephalic, atraumatic and hearing grossly normal bilaterally HEAD & SCALP: normocephalic and atraumatic Resp: COMMON NORMALS: normal respiratory effort, No retractions, No use of accessory muscles and clear to auscultation bilaterally AUSCULTATION: clear to auscultation bilaterally Cardio: COMMON NORMALS: regular rate, regular rhythm and No murmurs present (Cardio) RATE: regular rate RHYTHM: regular rhythm GI: COMMON NORMALS: Soft to palpation and No hepatosplenomegaly present AUSCULTATION: Yes normoactive bowel sounds PALPATION: Yes Soft to palpation, No Tenderness to palpation present (GI), No Guarding due to palpation present (GI) and Yes No hepatosplenomegaly present Extremity: COMMON NORMALS: normal to inspection, capillary refill normal, no clubbing, cyanosis or edema, no calf tenderness and no pedal edema Neuro: SENSORIUM/ORIENTATION: Yes oriented to person, Yes oriented to place and Yes oriented to time Skin: COMMON NORMALS: no rashes or lesions noted GENERAL SKIN EXAM: no rashes or lesions noted Course Vital Signs: Vital signs: Vital Signs Temperature 98.1 F 07/02/24 08:59 Pulse Rate 79 07/02/24 13:59 Respiratory Rate 17 07/02/24 13:40 Blood Pressure 121/68 07/02/24 13:59 Pulse Oximetry 94 07/02/24 13:59 Oxygen Delivery Me thod Room Air 07/02/24 08:59 [facility] - General Adult Medical Decision Making Patient has pneumonia. Will start on oral antibiotics. White count normal sat is normal. Follow-up with primary care if not improving Medical Records I reviewed the patient's medical records. Lab Data I reviewed the patient's lab results. 07/02/24 09:59 07/02/24 09:59 Radiology Impressions Chest X-Ray 07/02/24 09:01 IMPRESSION: 1. Consolidating RIGHT upper lobe pneumonia. Laboratory Results WBC 15.92 10^3/uL (3.29-11.43) H 07/02/24 09:59 RBC 4.49 10^6/uL (3.85-5.65) 07/02/24 09:59 Hgb 11.80 g/dL (11.27-16.99) 07/02/24 09:59 Hct 36.7 % (36-47) 07/02/24 09:59 MCV 81.7 fl (85-98) L 07/02/24 09:59 MCH 26.3 pg (27-33) L 07/02/24 09:59 MCHC 32.2 g/dL (30-55) 07/02/24 09:59 RDW 16.2 % (12.1-15.1) H 07/02/24 09:59 Plt Count 209 10^3/cmm (157-399) 07/02/24 09:59 MPV 10.5 fL (7.4-10.4) H 07/02/24 09:59 Neut % (Auto) 90.5 % 07/02/24 09:59 Lymph % (Auto) 2.6 % 07/02/24 09:59 [place] % (Auto) 4.1 % 07/02/24 09:59 Eos % (Auto) 0.4 % 07/02/24 09:59 Baso % (Auto) 0.3 % 07/02/24 09:59 Neut # (Auto) 14.40 10^3/uL (1.8-7.7) H 07/02/24 09:59 Lymph # (Auto) 0.4 10^3/uL (0.8-4.8) L 07/02/24 09:59 [place] # (Auto) 0.7 10^3/uL (0.2-0.9) 07/02/24 09:59 Eos # (Auto) 0.1 10^3/uL (0.0-0.8) 07/02/24 09:59 Baso # (Auto) 0.1 10^3/uL (0.0-0.1) 07/02/24 09:59 Nucleated RBC % (auto) 0 % 07/02/24 09:59 Nucleated RBCs # 0.0 /100WBC 07/02/24 09:59 Sodium 135 mmol/L (136-145) L 07/02/24 09:59 Potassium 3.2 mmol/L (3.5-5.1) L 07/02/24 09:59 Chloride 97 mmol/L (98-107) L 07/02/24 09:59 Carbon Dioxide 25 mmol/L (22-29) 07/02/24 09:59 Anion Gap 16.2 (5-19) 07/02/24 09:59 BUN 20 mg/dL (8-23) 07/02/24 09:59 Creatinine 0.8 mg/dL (0.5-0.9) 07/02/24 09:59 GFR Calculation Not Reportable 07/02/24 09:59 Glucose 155 mg/dL (65-115) H 07/02/24 09:59 Calculated Osmolality 286 mOsm/kg (285-295) 07/02/24 09:59 Lactic Acid 1.4 mmol/L (0.5-2.2) 07/02/24 09:59 Calcium 8.9 mg/dL (8.5-10.5) 07/02/24 09:59 Total Bilirubin 0.5 mg/dL (0.15-1.2) 07/02/24 09:59 AST 11 U/L (0-32) 07/02/24 09:59 ALT 11 U/L (0-33) 07/02/24 09:59 Alkaline Phosphatase 106 U/L (35-105) H 07/02/24 09:59 Troponin T Baseline 10 ng/L (0-10) 07/02/24 09:59 Troponin T 120 Minute 7.75 ng/L (0-10) 07/02/24 12:15 Delta Troponin T -2.25 ABS# (0-10) L 07/02/24 12:15 Total Protein 5.5 g/dL (6.6-8.7) L 07/02/24 09:59 Albumin 3.6 g/dL (3.5-5.2) 07/02/24 09:59 Globulin 1.9 g/dL (1.3-4.6) 07/02/24 09:59 Urine Color Dark yellow (Yellow) A 07/02/24 11:28 Urine Appearance Cloudy (CLEAR) A 07/02/24 11:28 Urine pH 5.0 (5-7) 07/02/24 11:28 Ur Specific [place] 1.030 (1.005-1.030) 07/02/24 11:28 Urine Protein Trace (Negative) A 07/02/24 11:28 Urine Glucose (UA) Negative (Normal) 07/02/24 11:28 Urine Ketones Trace (Negative) 07/02/24 11:28 Urine Blood Negative (Negative) 07/02/24 11:28 Urine Nitrate Negative (Negative) 07/02/24 11:28 Urine Bilirubin Negative (Negative) 07/02/24 11:28 Urine Urobilinogen 1.0 mg/dL (Negative) 07/02/24 11:28 Ur Leukocyte Esterase Trace (Negative) A 07/02/24 11:28 Urine RBC 0-2 /hpf (0-2) 07/02/24 11:28 Urine WBC 0-5 /hpf (0-5) 07/02/24 11:28 Ur Squamous Epith Cells 6-10 /hpf (0-5) 07/02/24 11:28 Amorphous Sediment Not Reportable 07/02/24 11:28 Urine Bacteria Trace /hpf (NONE) 07/02/24 11:28 Hyaline Casts 7.42 /lpf 07/02/24 11:28 Coronavirus (PCR) Negative (Negative) 07/02/24 09:09 Influenza A (PCR) Negative (Negative) 07/02/24 09:09 Influenza Type B (PCR) Negative (Negative) 07/02/24 09:09 RSV (PCR) Negative (Negative) 07/02/24 09:09 All radiology interpretation(s) finalized by discharge Discharge Plan Discharge Patient Disposition: Home Clinical Impression: Pneumonia Condition: Stable Prescriptions: New albuterol sulfate 90 mcg/actuation HFA aerosol inhaler 2 inh INHALATION Q4H PRN (Reason: shortness of breath or wheezing) Qty: 18 0RF levofloxacin 500 mg tablet 500 mg PO DAILY 7 Days Qty: 7 0RF No Action ezetimibe [Zetia] 10 mg tablet 10 mg PO BEDTIME multivitamin Tablet 1 tab PO DAILY fluticasone propionate [Flonase Allergy Relief] 50 mcg/actuation spray,suspension 1 spray INTRANASAL DAILY PRN (Reason: ALLERGIES) montelukast 10 mg tablet 10 mg PO BEDTIME levothyroxine 125 mcg capsule 125 mcg PO DAILY aripiprazole [Abilify] 2 mg tablet 2 mg PO BID magnesium oxide [MagOx] 400 mg (241.3 mg magnesium) tablet 400 mg PO BEDTIME pantoprazole [Protonix] [address] for susp in packet 40 mg PO BID metoclopramide HCl [Reglan] 5 mg tablet 5 mg PO DAILY PRN (Reason: Abdominal Discomfort) ferrous sulfate [Feosol] 325 mg (65 mg iron) tablet 325 mg PO DAILY sucralfate [Carafate] 1 gram tablet 1 g PO QID PRN (Reason: UPSET STOMACH) nitroglycerin [Nitrostat] 0.4 mg tablet, sublingual 0.4 mg SUBLINGUAL Q5M PRN (Reason: chest pain) Qty: 25 3RF Eliquis 5 mg tablet 5 mg PO BID Qty: 60 11RF diltiazem HCl 120 mg capsule,extended release 24hr 120 mg PO BEDTIME Qty: 90 3RF methocarbamol 500 mg tablet 125 mg PO Q6H PRN (Reason: MUSCLE SPASM) gabapentin 300 mg capsule 600 mg PO QPM duloxetine 20 mg capsule,delayed release(DR/EC) 20 mg PO BEDTIME Rx Instructions: ALONG WITH 60MG TO=80MG TOTAL duloxetine 60 mg capsule,delayed release(DR/EC) 60 mg PO BEDTIME Rx Instructions: ALONG WITH 20MG TO= 80MG TOTAL fluoride (sodium) [Denta 5000 Plus] 1.1 % cream 1 applic PO DAILY coenzyme Q10 30 mg Capsule 30 mg PO DAILY cholecalciferol (vitamin D3) [Vitamin D3] 25 mcg (1,000 unit) Tablet 25 mcg PO DAILY isosorbide mononitrate 30 mg Tablet Extended Release 24 Hr 15 mg PO DAILY PRN (Reason: Chest Pain) albuterol sulfate [Ventolin HFA] 90 mcg/actuation Hfa Aerosol Inhaler 2 puff INHALATION QID naproxen sodium 220 mg Capsule 220 mg PO BID PRN (Reason: arthritis) budesonide-formoterol [Symbicort] 160-4.5 mcg/actuation HFA aerosol inhaler 2 puff INHALATION BID mirabegron [Myrbetriq] 25 mg tablet extended release 24 hr 25 mg PO DAILY sertraline [Zoloft] 50 mg tablet 50 mg PO QPM hydrocodone-acetaminophen 10-325 mg tablet 1 tab PO Q6H PRN (Reason: Pain) omega-3 fatty acids-fish oil 684-1,200 mg Capsule,Delayed Release(Dr/Ec) 1 cap PO DAILY calcium carb,[id number] 315-250-200 mg-unit-mg Tablet 1 tab PO DAILY Discharge Orders: Discharge ED (Routine); Ordered 07/02/24 Ordered By: Curly Goodman Referrals: Lorena Jackson MD [Primary Care Provider] - Discharge Diet: Usual diet Discharge Activity: Resume usual activity Patient Instructions: Opioid Safety, Pain Management Activity Restrictions/Additional Instructions: Thank you for choosing [facility] for your healthcare needs today. It is very important that you follow up as instructed or that you return to the Emergency Department should you have concerns or if your condition changes or worsens in any way. You were seen emergency room complaint of right-sided chest pain body aches and shortness of breath. Chest x-ray shows pneumonia. Your oxygen saturations are good blood cultures were done. Recommend that you start on oral antibiotics Levaquin 500 mg once daily for 7 days continue your other medications you have worsening or changes symptoms return to the emergency room. flu COVID and RSV were all negative Coding Level of Care Code ED Hvac Designer for Mira Dwyer
[2024-07-02 10:05] LABS: Covid PCR NEGATIVE (Negative); Influenza A NEGATIVE (Negative); Influenza B NEGATIVE (Negative); Respiratory Syncytial Virus Ce NEGATIVE (Negative)
[2024-07-02 10:22] LABS: Basophils # 0.1 10^3/uL (0.0-0.1); Basophils % 0.3 %; Eosinophils # 0.1 10^3/uL (0.0-0.8); Eosinophils % 0.4 %; Hematocrit 36.7 % (36-47); Lymphocytes # 0.4 10^3/uL (0.8-4.8); Lymphocytes % 2.6 %; Mean Corpuscular HGB Conc 32.2 g/dL (30-55); Mean Corpuscular Hemoglobin 26.3 pg (27-33); Mean Corpuscular Volume 81.7 fl (85-98); Mean Platelet Volume 10.5 fL (7.4-10.4); Monocytes # 0.7 10^3/uL (0.2-0.9); Monocytes % 4.1 %; Neutrophils % 90.5 %; Nucleated Red Blood Cells % 0 %; Platelet Count 209 10^3/cmm (157-399); Red Blood Count 4.49 10^6/uL (3.85-5.65); Red Cell Distribution Width 16.2 % (12.1-15.1); White Blood Count 15.92 10^3/uL (3.29-11.43)
[2024-07-02] MEDS: piperacillin-tazobactam 3.375 GM in sodium chloride 0.9% (plus) 50 ML IV (10:23)
[2024-07-02 10:40] LABS: Alanine Aminotransferase 11 U/L (0-33); Albumin Level 3.6 g/dL (3.5-5.2); Alkaline Phosphatase 106 U/L (35-105); Anion Gap 16.2 (5-19); Aspartate Amino Transferase 11 U/L (0-32); Blood Urea Nitrogen 20 mg/dL (8-23); Calcium 8.9 mg/dL (8.5-10.5); Carbon Dioxide 25 mmol/L (22-29); Chloride 97 mmol/L (98-107); Creatinine Clr Calc Pharmacy 80.6739; Globulin 1.9 g/dL (1.3-4.6); Glucose 155 mg/dL (65-115); Osmolality Calculated 286 mOsm/kg (285-295); Potassium 3.2 mmol/L (3.5-5.1); Sodium 135 mmol/L (136-145); Total Bilirubin 0.5 mg/dL (0.15-1.2); Total Protein 5.5 g/dL (6.6-8.7)
[2024-07-02 10:44] LABS: Troponin(5th) Baseline 10 ng/L (0-10)
--- NOTE | 2024-07-02 11:21 | ECG_ITS ---
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 Measurements Intervals [place] Rate: 73 P: 68 HI: 199 QRS: 15 QRSD: 85 T: 64 QT: 398 QTc: 441 Interpretive Statements SINUS RHYTHM LOW QRS VOLTAGE IN EXTREMITY LEADS [QRS DEFLECTION < 0.5 mV IN LIMB LEADS] Compared to ECG 07/02/2024 09:02:31 No significant changes Electronically Signed On 07-03-2024 22:10:35 CLINICAL CYTOGENETICS DIRECTOR by Brice Murray M.D. [email or web address]
[2024-07-02 11:28] LABS: Lactic Sepsis W/Reflex 1.4 mmol/L (0.5-2.2)
[2024-07-02 11:36] LABS: Bilirubin Urine Negative (Negative); Blood Urine Negative (Negative); Glucose Urine UA Negative (Normal); Ketones Urine Trace (Negative); Leukocyte Esterase Urine Trace (Negative); Nitrate Urine Negative (Negative); Protein Urine Trace (Negative); Urine Appearance Cloudy (CLEAR); Urine Color Dark Yellow (Yellow)
[2024-07-02 11:39] LABS: Add Urine Microscopic? YES; Bacteria Urine Trace /hpf; Hyaline Casts Urine 7.42 /lpf; RBC Urine 0-2 /hpf (0-2); WBC Urine 0-5 /hpf (0-5)
[2024-07-02 12:46] LABS: Troponin 5 2HR 7.75 ng/L (0-10)
[2024-07-02 12:50] LABS: Troponin 5 2HR Delta -2.25 ABS# (0-10)
[2024-07-02] MEDS: morphine 4 mg/mL SDV 1 mL IVP (13:40)
== END 2024-07-02 14:03 | disposition home or self-care (01) ==
PROVIDERS: Emergency Provider Family Medicine; PCP Family Medicine
DX: J18.9 Pneumonia, unspecified organism (principal); Z79.01 Long term (current) use of anticoagulants; Z11.52 Encounter for screening for COVID-19; Z85.3 Personal history of malignant neoplasm of breast; I10 Essential (primary) hypertension; E11.9 Type 2 diabetes mellitus without complications; J44.9 Chronic obstructive pulmonary disease, unspecified; Z86.73 Personal history of transient ischemic attack (TIA), and cerebral infarction without residual deficits
CPT/HCPCS: 0241U; 36415; 71045; 80053; 81001; 83605; 84484; 85025; 87040; 93005; 96365; 96366; 96375; 99285; J2270; J2543

== ENCOUNTER 2024-07-16 08:03 | Outpatient (CLI) | payer MEDICARE, MEDICAID, SELFPAY ==
--- NOTE | 2024-07-16 08:08 | XR_ITS ---
WS: [id number] CHEST 2 VIEWS HISTORY: PNEUMONIA COMPARISON: 07/02/2024 Lungs: Mild pulmonary hyperexpansion. Previously described consolidation in the RIGHT upper lobe pers ist. Slightly improved attenuation RIGHT upper lobe. There is now hazy attenuation in the RIGHT lower lung field. LEFT lung is clear. Cardiac size: Normal. Mediastinum/Aorta: Mild atherosclerosis aorta. Bones: Osteopenia. Bilateral mastectomies. Surgical clips are noted over the thorax. XR/XR chest 2V* [id number] IMPRESSION: 1. Slightly improved but persistent consolidation in the RIGHT upper lobe. New area of increasing attenuation in the RIGHT lower lung field may be in the RIG HT middle or RIGHT lower lobe. Consider chest CT with IV contrast at this time to exclude underlying mass within the RIGHT upper lobe. 2. No mediastinal widening.
== END 2024-07-16 08:04 | disposition home or self-care (01) ==
LOC: RAD 08:06
PROVIDERS: PCP Family Medicine; Visit Provider Family Medicine
DX: J18.9 Pneumonia, unspecified organism (principal)
CPT/HCPCS: 71046

== ENCOUNTER 2024-07-28 08:10 | Outpatient (CLI) | payer MEDICARE, MEDICAID, SELFPAY ==
--- NOTE | 2024-07-28 08:26 | CT_ITS ---
WS: [email or web address] CT chest w con* [id number] HISTORY: PNEUMONIA, history of breast cancer, bilateral mastectomies. TECHNIQUE: Axial imaging performed through the thorax. Coronal and sagittal reformats are submitted. All CT scans at [facility] use at least one of these dose optimization techniques: automated exposure control; mA and/or kV adjustment per patient size (includes targeted exams where dose is mat ched to clinical indication); or iterative reconstruction. CONTRAST: Omnipaque 350; 100 mL IV. DLP: 603.23 mGy.cm COMPARISON: 07/01/2014, chest radiograph 07/16/2024, 07/02/2024, 03/08/2024 Lungs and central airway: New RIGHT upper lobe opacification has developed since 07/01/2014. Hazy att enuation in the RIGHT upper lobe along with bronchiectasis. No additional consolidations. There are a few tiny nodules in the lingula. Pleura: Normal. No pleural effusion. Heart and pericardium: Normal size heart with no pericardial effusion. Mediastinum and gladys: Small mediastinal and hilar lymph nodes. No adenopathy. Vessels: Normal size aortic and pulmonary artery. No coronary artery calcifications. Chest wall and lower neck: Prior bilateral mastectomies with reconstruction. No axillary adenopathy. Upper abdomen: Postoperative changes at the GE junction from prior hernia repair. Circumferential thi ckening of the distal esophagus is reidentified. This was also present on the CT of 03/08/2024. No adr enal mass. Large ventral abdominal wall hernia incompletely included. Known hernia. No obstructive pa ttern. Portion of the stomach extends into the hernia sac. Osseous structures: Increase in thoracic kyphosis. CT/CT chest w con* [id number] IMPRESSION: 1. Focal opacification RIGHT upper lobe is reidentified. Previously described by chest radiograph. There does appear to be slow improvement since 07/02/2024. New since 03/08/2024. Favor pneumonia with developing bronchiectasis. Continued close follow-up to resolution recommended. 2. No mediastinal or hilar adenopathy. 3. Distal circumferential esophageal thickening similar to the prior CT of 02/19. No progression. Esophagitis within the differential. Patient has also h ad surgery at the GE junction. 4. Prior bilateral mastectomies. 5. Ventral abdominal wall hernia contains GI tract and a portion of the stomac h
--- NOTE | 2024-07-28 08:26 | XRR_ITS ---
PROCEDURE INFORMATION: Exam: XR Left Shoulder Exam date and time: 07/28/2024 8:40 AM Age: 74 years old Clinical indication: Left; Patient HX: 1 week pain behind shoulder blade and superior shoulder after pushing object, limited rom. HX of breast cancer; Additional info: Left shoulder pain TECHNIQUE: Imaging protocol: Radiologic exam of the left shoulder. Views: 2 or more views. COMPARISON: CR XR chest 2V* [id number] 07/16/2024 8:28 AM FINDINGS: Bones/joints: There are mild degenerative changes of the acromioclavicular and glenohumeral joints. No acute fracture or dislocation. No focal lytic or sclerotic lesions. Soft tissues: Postsurgical changes are noted within the left axilla. XR/XR shoulder LT min 2V* [id number] IMPRESSION: No acute osseous abnormality
[2024-07-28] MEDS: iohexol 350 mg/mL 500 mL Btl (per mL) IV (08:54)
== END 2024-07-28 08:11 | disposition home or self-care (01) ==
PROVIDERS: PCP Family Medicine; Visit Provider Family Medicine
DX: M19.012 Primary osteoarthritis, left shoulder (principal); J18.9 Pneumonia, unspecified organism; Z98.890 Other specified postprocedural states; R93.89 Abnormal findings on diagnostic imaging of other specified body structures; K20.90 Esophagitis, unspecified without bleeding; K43.9 Ventral hernia without obstruction or gangrene; J47.9 Bronchiectasis, uncomplicated; M40.294 Other kyphosis, thoracic region
CPT/HCPCS: 71260; 73030

== ENCOUNTER 2024-09-03 10:10 | Outpatient (CLI) | payer MEDICAID, SELFPAY ==
--- NOTE | 2024-09-03 10:22 | XR_ITS ---
WS: [email or web address] XR chest 2V* [id number] REASON FOR EXAM: bacterial pneumonia FINDINGS: Compared to the examination of 07/16/2024, the interstitial and groundglass opacities in the right upper lung have essentially resolved. There is no other interval change and no new findings. XR/XR chest 2V* [id number] IMPRESSION: Resolution of presumed pneumonitis as above.
== END 2024-09-03 10:11 | disposition home or self-care (01) ==
LOC: RAD 10:18
PROVIDERS: PCP Family Medicine; Visit Provider Family Medicine
DX: J15.9 Unspecified bacterial pneumonia (principal)
CPT/HCPCS: 71046

== ENCOUNTER → 2024-11-03 10:35 | Outpatient (BNVA) | payer MEDICARE, MEDICAID, SELFPAY | PROVIDERS: PCP Family Medicine; Visit Provider Nurse Practitioner Family | DX: I48.4 Atypical atrial flutter (principal); E78.00 Pure hypercholesterolemia, unspecified; I10 Essential (primary) hypertension; E11.9 Type 2 diabetes mellitus without complications; J44.9 Chronic obstructive pulmonary disease, unspecified; K44.9 Diaphragmatic hernia without obstruction or gangrene; R29.91 Unspecified symptoms and signs involving the musculoskeletal system; Z79.01 Long term (current) use of anticoagulants | CPT/HCPCS: 99214 ==

== ENCOUNTER 2024-12-22 08:13 | Outpatient (CLI) | payer OTHER, MEDICAID, SELFPAY ==
--- NOTE | 2024-12-22 08:17 | FL_ITS ---
WS: [email or web address] MD upper GI series [id number] REASON FOR EXAM: HIATAL HERNIA/GERD/DIAPHRAGMATIC HERNIA W/O OBSTRUCTION FLUOROSCOPY TIME: 2min [id number] # OF SPOT FILMS: 0 TECHNIQUE: The patient was examined in the upright AP and lateral projections, the prone TOLLIVER position, supine, and LPO positions. The swallowing of barium was monitored fluoroscopically and multiple spot films obtained. FINDINGS: No contrast penetration of the laryngeal vent Lloyd. No aspiration. There is mild dilatation of the thoracic esophagus. There is weakened primary peristalsis. There are persistent tertiary contractions. There was retention of contrast in the esophagus with intermittent reflux of contrast from the midesophagus to the thoracic inlet. There is a moderately large hiatal hernia without significant Schatzki ring or stricture. Fundus of the stomach was somewhat narrow but demonstrated in normal fold pattern and was not rigid. The antrum of the stomach was unremarkable. The duodenum and duodenal sweep are unremarkable. FL/FL upper GI series [id number] IMPRESSION: Normal cervical esophagus. Dysmotility of the thoracic thoracic esophagus with esophageal esophageal reflu x as above. Moderately large hiatal hernia. No gastroesophageal reflux was demo nstrated. These findings were demonstrated on previous examination of 01/01/2023 and appear unchanged.
== END 2024-12-22 08:14 | disposition home or self-care (01) ==
PROVIDERS: PCP Family Medicine; Visit Provider Internal Medicine Gastroenterology
DX: K44.9 Diaphragmatic hernia without obstruction or gangrene (principal); K21.9 Gastro-esophageal reflux disease without esophagitis; K22.89 Other specified disease of esophagus; K22.4 Dyskinesia of esophagus
CPT/HCPCS: 74240

== ENCOUNTER 2024-12-23 07:43 | Outpatient (CLI) | payer OTHER, MEDICAID, SELFPAY ==
--- NOTE | 2024-12-23 07:51 | MR_ITS ---
WS: [email or web address] MRI THORACIC SPINE noncontrast. HISTORY: BACK PAIN/SPINAL STENOSIS OF LSPINE/RADICULOPATHY COMPARISON: None available. TECHNIQUE: Multiplanar sequences are performed in sagittal and axial planes. Mild increase in thoracic kyphosis. Disc spaces are diffusely narrowed throughout the thoracic spine. Small vertebral body osteophytes at all levels. Signal within the thoracic cord is normal. No cord compression. Conus tapers normally ends at L1. T1-2: Normal. T2-3: Bilateral facet arthritis, RIGHT greater than LEFT. T3-4: RIGHT facet joint arthritis. Moderate RIGHT foraminal stenosis. T4-5: Normal. T5-6: Normal. T6-7: Normal. T7-8: Mild bilateral foraminal stenosis and facet arthritis. T8-9: Mild foraminal stenosis and facet arthritis. T9-10: Mild foraminal stenosis and facet arthritis, LEFT greater than RIGHT. T10-11: Moderate bilateral facet arthritis and foraminal stenosis. T11-12: Mild facet arthritis. Mildly dilated pulmonary arteries. Small hiatal hernia. No adrenal mass. MR/MR thoracic spin wo con* [id number] IMPRESSION: 1. Mild increase in thoracic kyphosis with diffuse thoracic spondylosis. 2. No high-grade central stenosis or cord compression. 3. Facet joint arthropathy at multiple levels as described above. Most signifi cant arthropathy at T10-11.
== END 2024-12-23 07:44 | disposition home or self-care (01) ==
LOC: RAD 07:46
PROVIDERS: PCP Nurse Practitioner Family; Visit Provider Physical Medicine & Rehabilitation
DX: M48.061 Spinal stenosis, lumbar region without neurogenic claudication (principal); M54.16 Radiculopathy, lumbar region; M40.294 Other kyphosis, thoracic region; M47.894 Other spondylosis, thoracic region; M25.78 Osteophyte, vertebrae; M48.04 Spinal stenosis, thoracic region; I28.1 Aneurysm of pulmonary artery; K44.9 Diaphragmatic hernia without obstruction or gangrene
CPT/HCPCS: 72146

== ENCOUNTER 2025-01-04 07:44 | Outpatient (CLI) | payer OTHER, MEDICAID, SELFPAY ==
--- NOTE | 2025-01-04 07:50 | US_ITS ---
WS: [id number] Complete ABDOMINAL ULTRASOUND HISTORY: HERNIA COMPARISON: None available. Liver: 17.8 cm in length. Normal size liver and echogenicity. No bile duct dilatation or mass. Portal Vein: Normal hepatopetal flow with monophasic waveform. Gallbladder: Prior cholecystectomy. CBD: 0.5 cm Pancreas: Poorly visualized. Right kidney: 9.9 cm x 5.0 x 4.8 cm. Cortex:1.0 cm. Normal size and echogenicity. No hydronephrosis or mass. Left kidney: 10.1 cm x 4.5 cm x 4.6 cm. Cortex: 0.9 cm. Normal size and echogenicity. No hydronephrosis or mass. Spleen: 8.1 cm. Normal size and echogenicity. Aorta and IVC: Unremarkable abdominal aorta and IVC. Midline palpable area corresponds to a large ventral abdominal wall hernia that was also described on 07/28/2024. Hernia contains GI tract. No obstruction. US/US abdomen complete* [id number] Impression: 1. Prior cholecystectomy. 2. No renal obstruction. 3. Mass along the ventral abdominal wall corresponds to a large abdominal wall hernia containing GI tract. Also described on a prior chest CT from 07/28/2024.
== END 2025-01-04 07:45 | disposition home or self-care (01) ==
PROVIDERS: PCP Nurse Practitioner Family; Visit Provider Nurse Practitioner Family
DX: K46.9 Unspecified abdominal hernia without obstruction or gangrene (principal)
CPT/HCPCS: 76700

== ENCOUNTER 2025-03-24 08:04 | Outpatient (CLI) | payer OTHER, MEDICAID, SELFPAY ==
[2025-03-24 08:24] VITALS: PULSE 95; RESP 18; O2SAT 96
== END 2025-03-24 08:05 | disposition home or self-care (01) ==
LOC: RT 08:05
PROVIDERS: PCP Nurse Practitioner Family; Visit Provider Nurse Practitioner Family
DX: R06.02 Shortness of breath (principal); J44.9 Chronic obstructive pulmonary disease, unspecified
CPT/HCPCS: J7613

== ENCOUNTER → 2025-05-11 15:13 | Outpatient (BNVA) | payer OTHER, MEDICAID, SELFPAY | PROVIDERS: PCP Nurse Practitioner Family; Visit Provider Internal Medicine | DX: R91.8 Other nonspecific abnormal finding of lung field (principal); J47.9 Bronchiectasis, uncomplicated; J98.4 Other disorders of lung; Z87.01 Personal history of pneumonia (recurrent); J44.9 Chronic obstructive pulmonary disease, unspecified | CPT/HCPCS: 99204; Q3014 ==

== ENCOUNTER → 2025-05-12 10:48 | Outpatient (BNVA) | payer OTHER, MEDICAID, SELFPAY | PROVIDERS: PCP Nurse Practitioner Family; Visit Provider Internal Medicine Cardiovascular Disease | DX: I48.92 Unspecified atrial flutter (principal); Z79.01 Long term (current) use of anticoagulants; R06.02 Shortness of breath; E78.00 Pure hypercholesterolemia, unspecified; E11.9 Type 2 diabetes mellitus without complications; Z86.73 Personal history of transient ischemic attack (TIA), and cerebral infarction without residual deficits; R07.9 Chest pain, unspecified; I48.91 Unspecified atrial fibrillation | CPT/HCPCS: 36415; 80048; 83036; 83880; 85025; 85610; 93005; 99214 ==

== ENCOUNTER 2025-05-19 08:54 | Outpatient (CLI) | payer OTHER, MEDICAID, SELFPAY ==
--- NOTE | 2025-05-19 09:00 | CT_ITS ---
WS: [id number] CT chest w con* [id number] HISTORY: dyspnea TECHNIQUE: Axial imaging performed through the thorax. Coronal and sagittal reformats are submitted. All CT scans at [facility] use at least one of these dose optimization techniques: automated exposure control; mA and/or kV adjustment per patient size (includes targeted exams where dose is matched to clinical indication); or iterative reconstruction. CONTRAST: Omnipaque 350; 100 mL IV. DLP: 581.10 mGy.cm COMPARISON: 07/28/2024, 07/01/2024 Lungs and central airway: Previously described RIGHT upper lung opacification has resolved. There are a few micronodules in the RIGHT middle lobe. No dense areas of consolidation. No pneumonia. Pleura: Normal. No pleural effusion. Heart and pericardium: Normal size heart with no pericardial effusion. Mediastinum and gladys: No mediastinum or hilar adenopathy. Vessels: Normal size aorta and pulmonary artery. Chest wall and lower neck: Bilateral mastectomies with reconstructive surgery. Upper abdomen: There is a large ventral, supraumbilical hernia containing colon and stomach. This hernia has been previously described. Additional postoperative changes at the GE junction are reidentified. Prior cholecystectomy. Osseous structures: Mild increase in thoracic kyphosis. CT/CT chest w con* [id number] IMPRESSION: 1. No pneumonia. Previously described pneumonia in the RIGHT upper lobe has re solved. 2. There are a few tiny micronodules within the RIGHT lung which are stable. 3. No mediastinal or hilar adenopathy. 4. Large ventral abdominal wall hernia contains stomach and colon. No obstruct ion of the GI tract. 5. Bilateral mastectomies with reconstructive surgery.
[2025-05-19] MEDS: iohexol 350 mg/mL 500 mL Btl (per mL) IV (09:21)
== END 2025-05-19 08:55 | disposition home or self-care (01) ==
LOC: RAD 08:56
PROVIDERS: PCP Nurse Practitioner Family; Visit Provider Internal Medicine
DX: J44.9 Chronic obstructive pulmonary disease, unspecified (principal); R91.8 Other nonspecific abnormal finding of lung field; K43.9 Ventral hernia without obstruction or gangrene; Z90.13 Acquired absence of bilateral breasts and nipples; K42.9 Umbilical hernia without obstruction or gangrene; Z90.49 Acquired absence of other specified parts of digestive tract; M40.294 Other kyphosis, thoracic region
CPT/HCPCS: 71260